=== PATIENT | male | born 1960 | race Hispanic/Latino ===

== ENCOUNTER 2017-09-19 12:45 | Emergency (ER) | payer MEDICARE ==
[2017-09-19 14:02] VITALS: BP 130/85
--- NOTE | 2017-09-19 19:12 | Emergency Department Report ---
ED Extremity Problem HPI - General Chief complaint: Extremity Problem,Nontraumatic Stated complaint: ABDOMINAL BLOATING/ FINGER/TOE PAIN Time Seen by Provider: 09/19/17 18:33 Source: patient Mode of arrival: Wheelchair Limitations: No Limitations - History of Present Illness Initial comments: Patient is a 57-year-old male who is presenting with 3-4 weeks of constant chronic bilateral hand and foot pain. Patient states there's been no swelling sometimes he does feel some redness of the skin flushed skin. Patient denies any trauma states the pain is 8 out of 10 in severity nothing makes it better and nothing makes it worse. Patient is mostly wheelchair-bound secondary to hip replacement and thinks some of the hand pain may be from pushing the wheels but it doesn't know why he is having the pain in his feet. Patient does not describe the pain as a burning sensation. - Related Data Previous Rx's Medication Instructions Recorded Last Taken Type traMADol [Ultram] 50 mg PO Q6HR PRN #10 tablet 09/19/17 Unknown Rx ED Review of Systems ROS: Stated complaint: ABDOMINAL BLOATING/ FINGER/TOE PAIN Other details as noted in HPI Comment: All other systems reviewed and negative ED Past Medical Hx - Surgical History Past Surgical History?: No Additional Surgical History: hip replacement. - Social History Smoking Status: Never Smoker Substance Use Type: None - Medications Home Medications: Home Medications Medication Instructions Recorded Confirmed Last Taken Type traMADol [Ultram] 50 mg PO Q6HR PRN #10 tablet 09/19/17 Unknown Rx ED Physical Exam - General Limitations: No Limitations General appearance: alert, in no apparent distress - Head Head exam: Present: atraumatic, normocephalic - Eye Eye exam: Present: normal appearance - ENT ENT exam: Present: mucous membranes moist - Neck Neck exam: Present: normal inspection - Respiratory Respiratory exam: Present: normal lung sounds bilaterally. Absent: respiratory distress - Cardiovascular Cardiovascular Exam: Present: regular rate, normal rhythm. Absent: systolic murmur, diastolic murmur, rubs, gallop - GI/Abdominal GI/Abdominal exam: Present: soft, normal bowel sounds - Rectal Rectal exam: Present: deferred - Extremities Exam Extremities exam: Present: normal inspection - Back Exam Back exam: Present: normal inspection - Neurological Exam Neurological exam: Present: alert, oriented X3 - Psychiatric Psychiatric exam: Present: normal affect, normal mood - Skin Skin exam: Present: warm, dry, intact, normal color. Absent: rash ED Course Vital Signs 09/19/17 13:58 Temperature 97.7 F Pulse Rate 91 H Respiratory 16 Rate Blood Pressure 130/85 O2 Sat by Pulse 100 Oximetry ED Medical Decision Making - Medical Decision Making Patient is a 57-year-old male presenting with chronic pain in his hands and feet. There is no physical evidence of any abnormality. Patient did not know if he was diabetic and had neuropathy blood sugar was checked and it was 102. Patient be discharged home he does have an orthopedic doctor that he can follow-up with an numbers to call his physician for appointment Critical care attestation.: If time is entered above; I have spent that time in minutes in the direct care of this critically ill patient, excluding procedure time. ED Disposition Clinical Impression: Chronic pain Qualifiers: Chronic pain type: chronic pain syndrome Qualified Code(s): G89.4 - Chronic pain syndrome Disposition: DC-01 TO HOME OR SELFCARE Is pt being admited?: No Does the pt Need Aspirin: No Condition: Stable Instructions: Chronic Pain (ED) Prescriptions: traMADol [Ultram] 50 mg PO Q6HR PRN #10 tablet PRN Reason: Pain Referrals: JULIO GREGORIO MD [Primary Care Provider] - 3-5 Days
== END 2017-09-19 18:40 | disposition home or self-care (01) ==
LOC: ED 12:45
DX: G89.4 Chronic pain syndrome (principal); M79.643 Pain in unspecified hand; M79.673 Pain in unspecified foot
CPT/HCPCS: 82962; 99282

== ENCOUNTER 2018-01-07 09:23 | Inpatient (IN) | payer MEDICARE ==
[2018-01-07 10:00] LABS: Hematocrit 33.3 % (35.5-45.6); Hemoglobin 11.3 gm/dl (11.8-15.2); Mean Corpuscular HGB Conc 34 % (32-34); Mean Corpuscular Hemoglobin 38 pg (28-32); Platelet Count 160 K/mm3 (140-440); Red Blood Count 2.97 M/mm3 (3.65-5.03); Red Cell Distribution Width 15.2 % (13.2-15.2)
[2018-01-07 10:02] LABS: Mean Corpuscular Volume 112 fl (84-94)
[2018-01-07 11:03] LABS: Alanine Aminotransferase 26 units/L (7-56); Albumin 2.1 g/dL (3.9-5); BUN/Creatinine Ratio 18; Blood Urea Nitrogen 9 mg/dL (9-20); Calcium 7.4 mg/dL (8.4-10.2); Hemolysis Index 4
--- NOTE | 2018-01-07 11:03 | Emergency Department Report ---
ED Shortness of Breath HPI - General Chief Complaint: Abdominal Pain Stated Complaint: TESTICULAR PAIN Time Seen by Provider: 01/07/18 10:47 Source: patient, EMS Mode of arrival: Stretcher Limitations: No Limitations - History of Present Illness Initial Comments: Patient is 57 years old male. Patient presented to the ER complaining all shortness of breath and generalized swelling specialty abdomen, scrotum and lower extremity. Patient stated that he had a history of liver cirrhosis before. Patient stated that he drink alcohol daily. He was never told that he had hepatitis. Patient denied any fever or abdominal pain. Patient denied hematemesis or melena. Patient also denied any recent confusion. MD Complaint: shortness of breath, cough -: week(s) Severity: moderate - Related Data Home Medications Medication Instructions Recorded Confirmed Last Taken No Known Home Medications [No 01/07/18 01/07/18 Unknown Reported Home Medications] Allergies Allergy/AdvReac Type Severity Reaction Status Date / Time No Known Allergies Allergy Unverified 01/07/18 09:33 ED Review of Systems ROS: Stated complaint: TESTICULAR PAIN Other details as noted in HPI Comment: All other systems reviewed and negative Respiratory: cough, orthopnea, shortness of breath, SOB with exertion, SOB at rest. denies: stridor, wheezing Cardiovascular: dyspnea on exertion, orthopnea, edema, paroxysmal nocturnal dyspnea. denies: chest pain, palpitations Gastrointestinal: denies: abdominal pain, nausea, vomiting, diarrhea, constipation, hematemesis, melena, hematochezia Genitourinary: denies: dysuria, frequency, hematuria, discharge, testicular pain , testicular mass Musculoskeletal: denies: back pain Skin: denies: rash, lesions Neurological: denies: headache, weakness, numbness, paresthesias, confusion, abnormal gait ED Past Medical Hx - Past Medical History Hx of Cancer: Yes (? colon) - Surgical History Additional Surgical History: hip replacement. - Social History Smoking Status: Former Smoker Substance Use Type: Alcohol - Medications Home Medications: Home Medications Medication Instructions Recorded Confirmed Last Taken Type No Known Home Medications [No 01/07/18 01/07/18 Unknown History Reported Home Medications] ED Physical Exam - General Limitations: No Limitations General appearance: alert - Head Head exam: Present: atraumatic, normocephalic, normal inspection - Eye Eye exam: Present: normal appearance - ENT ENT exam: Present: normal exam, normal orophraynx, mucous membranes moist - Neck Neck exam: Present: normal inspection, full ROM. Absent: tenderness, meningismus, lymphadenopathy, thyromegaly - Respiratory Respiratory exam: Present: normal lung sounds bilaterally, decreased breath sounds. Absent: respiratory distress, wheezes, rales, rhonchi, chest wall tenderness, accessory muscle use, prolonged expiratory - Cardiovascular Cardiovascular Exam: Present: regular rate, normal rhythm, normal heart sounds - GI/Abdominal GI/Abdominal exam: Present: soft, distended, normal bowel sounds. Absent: tenderness, guarding, rebound, rigid, organomegaly, mass, bruit, pulsatile mass , hernia - exam: Present: scrotal swelling. Absent: testicular tenderness, urethral discharge External exam: Present: swelling. Absent: lesions, lacerations, ecchymosis, bleeding - Extremities Exam Extremities exam: Present: full ROM, normal capillary refill, pedal edema. Absent: tenderness, joint swelling, calf tenderness - Back Exam Back exam: Present: normal inspection. Absent: full ROM, tenderness, CVA tenderness (R), CVA tenderness (L), muscle spasm, paraspinal tenderness, vertebral tenderness - Neurological Exam Neurological exam: Present: alert, oriented X3, CN II-XII intact, normal gait, reflexes normal - Skin Skin exam: Present: warm, intact, normal color. Absent: cyanosis, diaphoretic, erythema, urticaria ED Course Vital Signs 01/07/18 01/07/18 01/07/18 09:33 09:45 10:27 Temperature 98.4 F Pulse Rate 97 H Respiratory 20 22 Rate Blood Pressure 121/80 Blood Pressure 150/91 [Right] O2 Sat by Pulse 100 Oximetry 01/07/18 01/07/18 01/07/18 10:45 11:00 11:15 Temperature Pulse Rate 105 H 101 H 97 H Respiratory 24 25 H 17 Rate Blood Pressure 114/76 121/75 136/82 Blood Pressure [Right] O2 Sat by Pulse 100 97 Oximetry 01/07/18 01/07/18 01/07/18 11:30 11:45 12:00 Temperature Pulse Rate 97 H 100 H 101 H Respiratory 19 19 17 Rate Blood Pressure 115/85 138/91 124/82 Blood Pressure [Right] O2 Sat by Pulse Oximetry 06/04/18 06/04/18 06/04/18 12:15 12:30 12:45 Temperature Pulse Rate 102 H 98 H 100 H Respiratory 20 19 18 Rate Blood Pressure 138/91 123/88 135/93 Blood Pressure [Right] O2 Sat by Pulse Oximetry 01/07/18 01/07/18 01/07/18 13:00 13:16 13:30 Temperature Pulse Rate 101 H 103 H 100 H Respiratory 19 23 17 Rate Blood Pressure 138/105 138/105 138/87 Blood Pressure [Right] O2 Sat by Pulse Oximetry 01/07/18 01/07/18 13:37 13:45 Temperature 97.5 F L Pulse Rate 104 H Respiratory 19 Rate Blood Pressure 133/86 Blood Pressure [Right] O2 Sat by Pulse 96 Oximetry - Reevaluation(s) Reevaluation #1: 01/07/18 12:19 Patient reported that he's been taking aspirin 325 mg for his pain. He reported that he took at least 6 tablets yesterday and probably more than that 2 days ago but he stated that he did not took any aspirin today. I discussed with Dr. Small radiologist, paracentesis would be hold until tomorrow. I would order aspirin level on him. His INR is slightly up 1.7 hours give him vitamin K. ED Medical Decision Making - Lab Data Result diagrams: 01/07/18 09:41 01/07/18 09:41 - Radiology Data Radiology results: report reviewed Referring Physician: RODRIGUE HERNANDEZ Patient Name: DEEPAK LEWIS Date of : 1960 Sex: Male Report Date: 2018-01-07 Report Status: Finalized Findings [facility] [address] [place] [address] XRay Report Signed Patient: DEEPAK LEWIS MR#: [id number] : 1960 Acct:[id number] Age/Sex: 57 / M ADM Date: 01/07/18 Loc: ED Attending Dr: Ordering Physician: RODRIGUE HERNANDEZ Date of Service: 01/07/18 Procedure(s): XR chest 1V ap Accession Number(s): [id number] cc: RODRIGUE HERNANDEZ Fluoro Time In Minutes: AP CHEST: HISTORY: Shortness of breath No comparison. There is poor respiratory effort. Trace right pleural effusion is suspected, otherwise, the lungs are clear. No evidence for pneumonia or pneumothorax. Heart and mediastinal structures are within normal limits. The bony thorax is grossly intact. IMPRESSION: Poor inspiration. Trace right pleural effusion. Transcribed By: TTR Dictated By: SOPHIA SMALL JR, MD Electronically Authenticated By: SOPHIA SMALL JR, MD Signed Date/Time: 01/07/18 111 DD/ 111 TD/TT: 01/07/181112 - Medical Decision Making Discussed the patient was Dr. Guzman, he agreed to admit the patient to his service. Critical Care Time: Yes Critical care time in (mins) excluding proc time.: 30 Critical care attestation.: If time is entered above; I have spent that time in minutes in the direct care of this critically ill patient, excluding procedure time. ED Disposition Clinical Impression: Volume overload, Ascites, Liver cirrhosis, Hypokalemia Disposition: OP ADMIT IP TO THIS HOSP Is pt being admited?: Yes Condition: Stable
[2018-01-07 11:15] LABS: Band Neutrophils # (Manual) 0.1 K/mm3; Total Cells Counted 100
[2018-01-07 11:16] LABS: Macrocytosis 1+; Platelet Estimate Consistent w Auto
--- NOTE | 2018-01-07 11:23 | XRay Report ---
AP CHEST: HISTORY: Shortness of breath No comparison. There is poor respiratory effort. Trace right pleural effusion is suspected, otherwise, the lungs are clear. No evidence for pneumonia or pneumothorax. Heart and mediastinal structures are within normal limits. The bony thorax is grossly intact. IMPRESSION: Poor inspiration. Trace right pleural effusion.
[2018-01-07 11:34] LABS: INR 1.77 (0.87-1.13)
--- NOTE | 2018-01-07 11:57 | History and Physical Report ---
History of Present Illness Chief complaint: I cant breathe, my belly is real big History of present illness: 57 YO Male with Ascites, ETOH Abuse, Cirrhosis, Colon Cancer presents to ED for evaluation. Pt states that he has experienced worsening abdominal distention and shortness of breath over the past 1 month with worsening symptoms over the past 1 week. Pt denies fever, chills, CP, Palpitations, NVD, Trauma, recent ill contacts, productive cough, itching, Headache, Seizure, Syncope, hemoptysis, hematemesis, or BRBPR. Pt seen and evaluated in ED and found to have Acute Respiratory Failure secondary to massive ascites. Pt admitted to medical floor. Past History Past Medical History: other (Ascites, ETOH abuse, cirrhosis) Past Surgical History: total hip replacement Social history: single, alcohol abuse Family history: no significant family history (reviewed) Medications and Allergies Allergies Allergy/AdvReac Type Severity Reaction Status Date / Time No Known Allergies Allergy Unverified 01/07/18 09:33 Home Medications Medication Instructions Recorded Confirmed Last Taken Type No Known Home Medications [No 01/07/18 01/07/18 Unknown History Reported Home Medications] Active Meds: Active Medications Potassium Chloride (Kcl 10meq/100ml) 10 meq in 100 mls @ 100 mls/hr IV Q1H DURAN Stop: 01/07/18 13:59 Review of Systems Constitutional: weight gain, no weight loss, no fever, no chills, no sweats, no night sweats Ears, nose, mouth and throat: no ear pain, no ear discharge, no tinnitis, no decreased hearing, no nose pain, no nasal congestion, no nasal discharge Cardiovascular: no chest pain, no orthopnea, no palpitations, no rapid/ irregular heart beat Respiratory: shortness of breath, no cough, no cough with sputum, no excessive sputum, no hemoptysis Gastrointestinal: abdominal pain, nausea, no constipation, no change in bowel habits, no hematemesis, no BRBPR, no melena, no hematochezia, no loss of appetite, no early satiety Genitourinary Male: no dysuria, no hematuria, no flank pain, no discharge, no urinary frequency, no urinary hesitancy Rectal: no pain, no incontinence, no bleeding Musculoskeletal: no neck stiffness, no neck pain, no shooting arm pain, no arm numbness/tingling, no low back pain, no shooting leg pain Integumentary: no rash, no pruritis, no redness, no sores, no wounds, no jaundice Neurological: no head injury, no transient paralysis, no paralysis, no weakness , no parathesias, no numbness, no tingling, no seizures Psychiatric: no anxiety, no memory loss, no change in sleep habits, no sleep disturbances, no insomnia, no hypersomnia, no change in appetite Endocrine: no cold intolerance, no heat intolerance, no polyphagia, no polydipsia, no polyuria, no nocturia Hematologic/Lymphatic: no easy bruising, no easy bleeding, no lymphadenopathy, no lymphedema Allergic/Immunologic: no urticaria, no allergic rhinitis, no wheezing, no persistent infections, no anaphylaxis, no angioedema Exam - Constitutional Vitals: Temp Pulse Resp BP Pulse Ox 98.4 F 97 H 22 150/91 100 01/07/18 09:33 01/07/18 09:33 01/07/18 09:45 01/07/18 09:33 01/07/18 09:33 General appearance: Present: mild distress - EENT Eyes: Present: PERRL, scleral icterus ENT: hearing intact, clear oral mucosa - Neck Neck: Present: supple, normal ROM, masses or JVD - Respiratory Respiratory: bilateral: diminished - Cardiovascular Heart Sounds: Present: S1 & S2. Absent: rub, click - Extremities Extremities: pulses symmetrical, No edema Peripheral Pulses: within normal limits - Abdominal General gastrointestinal: Present: soft, distended, hypoactive bowel sounds. Absent: hepatomegaly, splenomegaly, mass Male genitourinary: Present: scrotal edema - Integumentary Integumentary: Present: clear, dry, jaundice - Musculoskeletal Musculoskeletal: generalized weakness - Psychiatric Psychiatric: appropriate mood/affect, intact judgment & insight - Neurologic Neurologic: CNII-XII intact, moves all extremities Results - Labs CBC & Chem 7: 01/07/18 09:41 01/07/18 09:41 Labs: Abnormal lab results 01/07/18 01/07/18 01/07/18 Range/Units 09:41 09:41 11:07 RBC 2.97 L (3.65-5.03) M/mm3 Hgb 11.3 L (11.8-15.2) gm/dl Hct 33.3 L (35.5-45.6) % MCV 112 H (84-94) fl MCH 38 H (28-32) pg Seg Neuts % (Manual) 81.0 H (40.0-70.0) % Lymphocytes % (Manual) 7.0 L (13.4-35.0) % Lymphocytes # (Manual) 0.4 L (1.2-5.4) K/mm3 PT 21.7 H (12.2-14.9) Sec. INR 1.77 H (0.87-1.13) APTT 40.0 H (24.2-36.6) Sec. Sodium 130 L (137-145) mmol/L Potassium 2.8 L* (3.6-5.0) mmol/L Chloride 89.5 L (98-107) mmol/L Creatinine 0.5 L (0.8-1.5) mg/dL Calcium 7.4 L (8.4-10.2) mg/dL Total Bilirubin 4.40 H (0.1-1.2) mg/dL AST 79 H (5-40) units/L Albumin 2.1 L (3.9-5) g/dL Assessment and Plan - Patient Problems (1) Acute respiratory failure Current Visit: Yes Status: Acute Qualifiers: Respiratory failure complication: hypoxia Qualified Code(s): J96.01 - Acute respiratory failure with hypoxia Plan to address problem: Supplemental oxygen, nebulizer therapy, NIPPV as clinically indicated, pulse oximetry, therapeutic paracentesis (2) ETOH abuse Current Visit: Yes Status: Acute Plan to address problem: CIWA protocol, thiamine, folic acid, multivitamin, (3) Ascites Current Visit: Yes Status: Acute Qualifiers: Ascites type: due to alcoholic cirrhosis Qualified Code(s): K70.31 - Alcoholic cirrhosis of liver with ascites Plan to address problem: Therapeutic paracentesis, abdominal ultrasound guidance. (4) Liver cirrhosis Current Visit: Yes Status: Acute Qualifiers: Ascites presence: with ascites Plan to address problem: Ammonia level, LFT, supportive care, (5) DVT prophylaxis Current Visit: Yes Status: Acute Plan to address problem: scd to ble while in bed
[2018-01-07] MEDS ORDERED: TYLENOL PO PRN (11:58)
[2018-01-07] MEDS ORDERED: PROVENTIL IH PRN (11:58)
[2018-01-07] MEDS ORDERED: ZOFRAN IV PRN (11:58)
[2018-01-07] MEDS ORDERED: SODIUM CHLORIDE FLUSH SYRINGE 10 ML IV PRN (11:58)
[2018-01-07] MEDS ORDERED: VITAMIN K (ADULT ONLY) SUB-Q ONE (12:20)
[2018-01-07] MEDS: KCL 10MEQ/100ML 10 MEQ/100 ML BAG IV SCH ×2 (13:35→17:00)
[2018-01-07] MEDS ORDERED: PROVENTIL IH ONE (14:18)
[2018-01-07 15:09] LABS: Bacteria,Urine 2+ /HPF (Negative); Bilirubin,Urine SM (Negative); Blood,Urine SM (Negative); Color,Urine Amber (Yellow); Mucus,Urine FEW /HPF
[2018-01-07 15:14] LABS: Ictotest,Urine Negative (Negative)
[2018-01-07] MEDS ORDERED: ATIVAN IV PRN ×2 (16:30)
[2018-01-07] MEDS: SODIUM CHLORIDE FLUSH SYRINGE 10 ML IV SCH (22:45)
[2018-01-08 08:50] LABS: INR 1.78 (0.87-1.13)
--- NOTE | 2018-01-08 11:25 | Ultrasound Report ---
ULTRASOUND PARACENTESIS History: Ascites. Description of procedure: Informed consent was obtained. Sterile technique was utilized. 1% lidocaine for skin anesthesia. Using ultrasound guidance, a 5 German centesis needle was advanced into the right lower quadrant peritoneal space. There was spontaneous return of slightly cloudy yellow fluid. 9.3 L of fluid was aspirated and 120 cc of fluid was saved for laboratory analysis. Impression: Successful paracentesis.
[2018-01-08 11:26] LABS: pH, Body Fluid 7.613
--- NOTE | 2018-01-08 11:38 | Procedure Note ---
Date of procedure: 01/08/18 Pre-op diagnosis: ascites Post-op diagnosis: same Procedure: US paracentesis Findings: large ascites Anesthesia: local Surgeon: SOPHIA RICK Estimated blood loss: none Pathology: list (120cc) Specimen disposition: to lab Condition: stable Disposition: floor
[2018-01-08] MEDS ORDERED: K-DUR PO ONE (12:00)
[2018-01-08] MEDS ORDERED: PNEUMOVAX 23 IM ONE (12:00)
--- NOTE | 2018-01-08 12:22 | Progress Note ---
Assessment and Plan Assessment and plan: 57 YO Male with Ascites, ETOH Abuse, Cirrhosis, presents to ED for evaluation. Pt states that he has experienced worsening abdominal distention and shortness of breath over the past 1 month with worsening symptoms over the past 1 week. Pt denies fever, chills, CP, Palpitations, NVD, Trauma, recent ill contacts, productive cough, itching, Headache, Seizure, Syncope, hemoptysis, hematemesis, or BRBPR. Pt seen and evaluated in ED and found to have Acute Respiratory Failure secondary to massive ascites. Per patient no diagnosis of CA but has never had a colonoscopy On further discussion the patient reports that he's been to multiple hospitals but does not recall why he only remembers a recent hip surgery with Dr. Alcazar at [facility]. He reports that his last alcohol drink was 5 days ago. He has very poor insight and actually had to count his fingers to decannulate his last alcohol drink was. He does not recall any medications that he is on. When told that he has a FAILING LIVER He exclaims,"Oh that is what it is" (1) Acute respiratory failure * Improved with paracentesis. Nebs PRN, NIPPV stand by (2) ETOH abuse Current Visit: Yes Status: Acute Plan to address problem: CIWA protocol, thiamine, folic acid, multivitamin, (3) Ascites Current Visit: Yes Status: Acute Qualifiers: Ascites type: due to alcoholic cirrhosis Qualified Code(s): K70.31 - Alcoholic cirrhosis of liver with ascites Plan to address problem: S/P Diagnostic and Therapeutic Paracentesis (4) Liver cirrhosis with decompensation Current Visit: Yes Status: Acute Qualifiers: Ascites presence: with ascites Plan to address problem: Ammonia level, LFT, supportive care, Lasix and aldactone GI consult Obtain records from recently visited hospitals (5) Scrotal Edema * scrotal us r/o epididymtis, Less likely. * scrotal support. (6)Anemia OF chronic Disease * Monitor. (7)Hypokalemia Replace, add aldactone. (8)DVT prophylaxis Current Visit: Yes Status: Acute Plan to address problem: scd to ble while in bed Will need extensively counselling on discharge. Outpatient screening colonoscopy if non noted on his records and if not done here History Interval history: Patient seen and examined, very poor historian. No fever, nausea, vomiting. No abdominal pain but states some dyscomfort with scrotal edema. Still with orthopnea Hospitalist Physical - Physical exam Narrative exam: VITAL SIGNS: Reviewed. GENERAL: The patient appeared well nourished and normally developed. Vital signs as documented. HEAD: No signs of head trauma. Temporal wasting with cachexia EYES: Pupils are equal. Extraocular motions intact. EARS: Hearing grossly intact. MOUTH: Oropharynx is normal. NECK: No adenopathy, no JVD. CHEST: Chest with clear breath sounds bilaterally. No wheezes, rales, or rhonchi. CARDIAC: Regular rate and rhythm. S1 and S2, without murmurs, gallops, or rubs. VASCULAR: 3+ bilateral pitting edema lower extremities. Peripheral pulses normal and equal in all extremities. ABDOMEN: Soft, without detectable tenderness. No sign of distention. No rebound or guarding, and no masses palpated. Bowel Sounds normal. MUSCULOSKELETAL: Good range of motion of all major joints. Extremities without clubbing, cyanosis. 3+ bilateral lower extremity pitting edema NEUROLOGIC EXAM: Alert and oriented x 3. Poor clinical insight No focal sensory or strength deficits. Speech normal. Follows commands. PSYCHIATRIC: Mood normal. SKIN: Enlarged scrotum with erythema extended to bilateral groin - Constitutional Vitals: Temp Pulse Resp BP Pulse Ox 98.3 F 96 H 24 129/82 96 01/08/18 08:20 01/08/18 08:20 01/08/18 08:20 01/08/18 08:20 01/08/18 08:20 General appearance: Present: mild distress Results - Labs CBC & Chem 7: 01/07/18 09:41 01/08/18 10:55 Labs: Laboratory Last Values WBC 6.3 K/mm3 (4.5-11.0) 01/07/18 09:41 RBC 2.97 M/mm3 (3.65-5.03) L 01/07/18 09:41 Hgb 11.3 gm/dl (11.8-15.2) L 01/07/18 09:41 Hct 33.3 % (35.5-45.6) L 01/07/18 09:41 MCV 112 fl (84-94) H 01/07/18 09:41 MCH 38 pg (28-32) H 01/07/18 09:41 MCHC 34 % (32-34) 01/07/18 09:41 RDW 15.2 % (13.2-15.2) 01/07/18 09:41 Plt Count 160 K/mm3 (140-440) 01/07/18 09:41 [place] % (Auto) Disc Pad Plate Filler 01/07/18 09:41 Add Manual Diff Complete 01/07/18 09:41 Total Counted 100 01/07/18 09:41 Seg Neuts % (Manual) 81.0 % (40.0-70.0) H 01/07/18 09:41 Band Neutrophils % 1.0 % 01/07/18 09:41 Lymphocytes % (Manual) 7.0 % (13.4-35.0) L 01/07/18 09:41 Reactive Lymphs % (Man) 1.0 % 01/07/18 09:41 Monocytes % (Manual) 5.0 % (0.0-7.3) 01/07/18 09:41 Eosinophils % (Manual) 4.0 % (0.0-4.3) 01/07/18 09:41 Basophils % (Manual) 1.0 % (0.0-1.8) 01/07/18 09:41 Metamyelocytes % 0 % 01/07/18 09:41 Myelocytes % 0 % 01/07/18 09:41 Promyelocytes % 0 % 01/07/18 09:41 Blast Cells % 0 % 01/07/18 09:41 Nucleated RBC % Not Reportable 01/07/18 09:41 Seg Neutrophils # Man 5.1 K/mm3 (1.8-7.7) 01/07/18 09:41 Band Neutrophils # 0.1 K/mm3 01/07/18 09:41 Lymphocytes # (Manual) 0.4 K/mm3 (1.2-5.4) L 01/07/18 09:41 Abs React Lymphs (Man) 0.1 K/mm3 01/07/18 09:41 Monocytes # (Manual) 0.3 K/mm3 (0.0-0.8) 01/07/18 09:41 Eosinophils # (Manual) 0.3 K/mm3 (0.0-0.4) 01/07/18 09:41 Basophils # (Manual) 0.1 K/mm3 (0.0-0.1) 01/07/18 09:41 Metamyelocytes # 0.0 K/mm3 01/07/18 09:41 Myelocytes # 0.0 K/mm3 01/07/18 09:41 Promyelocytes # 0.0 K/mm3 01/07/18 09:41 Blast Cells # 0.0 K/mm3 01/07/18 09:41 WBC Morphology Not Reportable 01/07/18 09:41 Hypersegmented Neuts Not Reportable 01/07/18 09:41 Hyposegmented Neuts Not Reportable 01/07/18 09:41 Hypogranular Neuts Not Reportable 01/07/18 09:41 Smudge Cells Not Reportable 01/07/18 09:41 Toxic Granulation Not Reportable 01/07/18 09:41 Toxic Vacuolation Not Reportable 01/07/18 09:41 Dohle Bodies Not Reportable 01/07/18 09:41 Pelger-Huet Anomaly Not Reportable 01/07/18 09:41 Ellie Rods Not Reportable 01/07/18 09:41 Platelet Estimate Consistent w auto 01/07/18 09:41 Clumped Platelets Not Reportable 01/07/18 09:41 Plt Clumps, EDTA Not Reportable 01/07/18 09:41 Large Platelets Not Reportable 01/07/18 09:41 Giant Platelets Not Reportable 01/07/18 09:41 Platelet Satelliting Not Reportable 01/07/18 09:41 Plt Morphology Comment Not Reportable 01/07/18 09:41 RBC Morphology Not Reportable 01/07/18 09:41 Dimorphic RBCs Not Reportable 01/07/18 09:41 Polychromasia Not Reportable 01/07/18 09:41 Hypochromasia Not Reportable 01/07/18 09:41 Poikilocytosis Not Reportable 01/07/18 09:41 Anisocytosis Not Reportable 01/07/18 09:41 Microcytosis Not Reportable 01/07/18 09:41 Macrocytosis 1+ 01/07/18 09:41 Spherocytes Not Reportable 01/07/18 09:41 Pappenheimer Bodies Not Reportable 01/07/18 09:41 Sickle Cells Not Reportable 01/07/18 09:41 Target Cells Not Reportable 01/07/18 09:41 Tear Drop Cells Not Reportable 01/07/18 09:41 Ovalocytes Not Reportable 01/07/18 09:41 Helmet Cells Not Reportable 01/07/18 09:41 [place] Bodies Not Reportable 01/07/18 09:41 [place] Rings Not Reportable 01/07/18 09:41 Miles Cells Not Reportable 01/07/18 09:41 Bite Cells Not Reportable 01/07/18 09:41 Crenated Cell Not Reportable 01/07/18 09:41 Elliptocytes Not Reportable 01/07/18 09:41 Acanthocytes (Spur) Not Reportable 01/07/18 09:41 Rouleaux Not Reportable 01/07/18 09:41 Hemoglobin C Crystals Not Reportable 01/07/18 09:41 Schistocytes Not Reportable 01/07/18 09:41 Malaria parasites Not Reportable 01/07/18 09:41 Buster Bodies Not Reportable 01/07/18 09:41 Hem Pathologist Commnt No 01/07/18 09:41 PT 21.8 Sec. (12.2-14.9) H 01/08/18 08:16 INR 1.78 (0.87-1.13) H 01/08/18 08:16 APTT 40.0 Sec. (24.2-36.6) H 01/07/18 11:07 Sodium 130 mmol/L (137-145) L 01/07/18 09:41 Potassium 2.7 mmol/L (3.6-5.0) L* 01/08/18 10:55 Chloride 89.5 mmol/L (98-107) L 01/07/18 09:41 Carbon Dioxide 26 mmol/L (22-30) 01/07/18 09:41 Anion Gap 17 mmol/L 01/07/18 09:41 BUN 9 mg/dL (9-20) 01/07/18 09:41 Creatinine 0.5 mg/dL (0.8-1.5) L 01/07/18 09:41 Estimated GFR > 60 ml/min 01/07/18 09:41 BUN/Creatinine Ratio 18 % 01/07/18 09:41 Glucose 89 mg/dL (75-100) 01/07/18 09:41 Calcium 7.4 mg/dL (8.4-10.2) L 01/07/18 09:41 Total Bilirubin 4.40 mg/dL (0.1-1.2) H 01/07/18 09:41 AST 79 units/L (5-40) H 01/07/18 09:41 ALT 26 units/L (7-56) 01/07/18 09:41 Alkaline Phosphatase 101 units/L (35-129) 01/07/18 09:41 Ammonia 31.0 umol/L (25-60) 01/07/18 12:47 NT-Pro-B Natriuret Pep 50.94 pg/mL (0-900) 01/07/18 09:41 Total Protein 7.9 g/dL (6.3-8.2) 01/07/18 09:41 Albumin 2.1 g/dL (3.9-5) L 01/07/18 09:41 Albumin/Globulin Ratio 0.4 % 01/07/18 09:41 Urine Color Sheri (Yellow) 01/07/18 14:38 Urine Turbidity Clear (Clear) 01/07/18 14:38 Urine pH 5.0 (5.0-7.0) 01/07/18 14:38 Ur Specific [place] 1.019 (1.003-1.030) 01/07/18 14:38 Urine Protein 30 mg/dl mg/dL (Negative) 01/07/18 14:38 Urine Glucose (UA) Neg mg/dL (Negative) 01/07/18 14:38 Urine Ketones Neg mg/dL (Negative) 01/07/18 14:38 Urine Blood Sm (Negative) 01/07/18 14:38 Urine Nitrite Neg (Negative) 01/07/18 14:38 Urine Bilirubin Sm (Negative) 01/07/18 14:38 Urine Ictotest Negative (Negative) 01/07/18 14:38 Urine Urobilinogen 4.0 mg/dL (<2.0) 01/07/18 14:38 Ur Leukocyte Esterase Lg (Negative) 01/07/18 14:38 Urine WBC (Auto) 122.0 /HPF (0.0-6.0) H 01/07/18 14:38 Urine RBC (Auto) 5.0 /HPF (0.0-6.0) 01/07/18 14:38 U Epithel Cells (Auto) 6.0 /HPF (0-13.0) 01/07/18 14:38 Urine Bacteria (Auto) 2+ /HPF (Negative) 01/07/18 14:38 Urine Mucus Few /HPF 01/07/18 14:38 Fluid Type Paracentesis 01/08/18 Unknown Fluid Color Yellow 01/08/18 Unknown Fluid Appearance Clear 01/08/18 Unknown Fluid pH 7.613 01/08/18 Unknown Fluid WBC 55 /mm3 01/08/18 Unknown Fluid RBC 85 /mm3 01/08/18 Unknown Salicylates 8.2 mg/dL (2.8-20.0) 01/07/18 12:47 - Imaging and Cardiology Chest x-ray: image reviewed (trace pleural effusion)
[2018-01-08] MEDS: FOLVITE PO SCH (12:34)
[2018-01-08] MEDS: THERAGRAN Tab PO SCH (12:35)
[2018-01-08] MEDS: SODIUM CHLORIDE FLUSH SYRINGE 10 ML IV SCH ×2 (12:35→22:46)
[2018-01-08] MEDS: VITAMIN B-1 PO SCH (12:35)
[2018-01-08 12:39] LABS: Total Cells Counted 100 /mm3
[2018-01-08] MEDS ORDERED: ROCEPHIN/NS 2 GM/100 ML 2 GM/100 ML BAG IV SCH (13:00)
[2018-01-08] MEDS ORDERED: ALDACTONE PO SCH (13:00)
--- NOTE | 2018-01-08 14:09 | Event Note ---
Date: 01/08/18 Attempted to see PT x 2, he is off the floor. Will follow up tomorrow. Please call if urgent needs arise. Tess Mckinney, ACNP-BC
--- NOTE | 2018-01-08 14:23 | Ultrasound Report ---
ULTRASOUND TESTICULAR DOPPLER COMPLETE History: Epididymitis. Technique: Trans-scrotal ultrasound with spectral doppler interrogation. Findings: There is severe scrotal skin edema. No evidence for abscess or soft tissue gas on ultrasound. Both testes and epididymides are normal size, contour and echotexture. No hydrocele or varicocele. No mass or pathologic calcifications. Doppler interrogation depicts symmetric arterial flow to both testes. IMPRESSION: Severe scrotal skin edema. This could represent nonspecific edema or cellulitis. No abscess is identified. Otherwise, unremarkable scrotal ultrasound. No convincing findings of epididymitis.
--- NOTE | 2018-01-08 15:16 | Query- Nutrition ---
Dear Amos Gonzalez____Date:___01/08/2018__ [employer]/CDS: clinton Phone#:[phone] Exercise your independent professional judgment when responding to query. Questions asked do not imply a particular answer is desired or expected. We greatly appreciate your clarification on this issue. Clinical Documentation States: 57 YO Male with Ascites, ETOH Abuse, Cirrhosis, Colon Cancer presents to ED for evaluation. Taken from H&P note (Dilshad Fernandes) on 01/07/18. Assessment and Plan:Taken from progress note (Carlos Smith) on 01/08/18. Acute respiratory failure Ascites Cirrhosis Clinical Findings Show: BMI:30.2kg/m Sr.Albumin: 2.1L Please select the most appropriate option 3 [] Mild Malnutrition [] Mild - Moderate Malnutrition [X] Moderate - Severe Malnutrition [] Severe Malnutrition Serum Albumin 2.8 to 3.4 g/dl or Pre-albumin 5 to 17 mg/dl1,2 Inadequate nutritional intake1,2,3,4 NPO > 5 days Weight loss: 5% in 1 month or 7.5% in 3 months or 10% in 6 months1, 3,4 BMI 16 to 18.4 or Weight <90% of ideal body weight1,2,3,4 Serum Albumin < 2.8 g/ dl1,2 Lymphocytes < 1500/ L2 Inadequate nutritional intake3, high stress e.g. major trauma, sepsis,pancreatitis, powell etc. Decubitus ulcers1,2, , skin breakdown2, easy hair pluckability2 Weight <80% standard for height2 Triceps skin fold <3 mm2 Mid-arm muscle circumference <15 cm2 Creatinine-height index <60% standard2 [X ] Cachexia [ ] Emaciated w/Malnutrition [ ] Other: [ ] Unable to determine [ ] Comment/Explanation: Present on Admission: [Y ] Yes (Y) [ ] Clinically undeterminable (W) [ ] No (N) Please also document response in your Progress Notes and/or Discharge Summary and indicate if the condition was present on admission. MTDD
[2018-01-08] MEDS ORDERED: NACL 0.9% 500 ML 500 ML IV SCH (17:00)
[2018-01-08] MEDS: cefTRIAXone 2 GM in NACL 0.9% 20 ML IV SCH (18:00)
[2018-01-08] MEDS: KCL 10MEQ/100ML 10 MEQ/100 ML BAG IV SCH ×3 (18:00→23:51)
[2018-01-08] MEDS: LASIX IV SCH (18:37)
[2018-01-08] MEDS: ATIVAN IV PRN (22:46)
[2018-01-09] MEDS: KCL 10MEQ/100ML 10 MEQ/100 ML BAG IV SCH ×5 (01:43→18:50)
[2018-01-09] MEDS: LASIX IV SCH ×2 (06:18→18:13)
[2018-01-09 07:12] LABS: Hematocrit 28.2 % (35.5-45.6); Hemoglobin 9.9 gm/dl (11.8-15.2); Mean Corpuscular HGB Conc 35 % (32-34); Mean Corpuscular Hemoglobin 39 pg (28-32); Mean Corpuscular Volume 111 fl (84-94); Platelet Count 162 K/mm3 (140-440); Red Blood Count 2.55 M/mm3 (3.65-5.03); Red Cell Distribution Width 14.8 % (13.2-15.2)
[2018-01-09 07:40] LABS: Alanine Aminotransferase 18 units/L (7-56); Albumin 1.7 g/dL (3.9-5); BUN/Creatinine Ratio 20; Blood Urea Nitrogen 8 mg/dL (9-20); Calcium 6.9 mg/dL (8.4-10.2); Hemolysis Index 0
--- NOTE | 2018-01-09 09:06 | Gastroenterology Consultation ---
History of Present Illness - Reason for Consult Consult date: 01/09/18 Cirrhosis with ascites Requesting physician: MENG GUTIERREZ - History of Present Illness The patient is a 57-year-old man with a long history of heavy alcohol abuse room consultation was requested for cirrhosis and massive ascites. He presented with progressive tense ascites and pedal edema which has been evolving over the last several months. The patient was told that he had cirrhosis about 6 months ago. He drinks at least a pint of gin on a daily basis which she has for 5-10 years by self-report. He reports that his last drink was approximately one week prior to this admission. No family history of liver disease. He has been in alcohol rehabilitation several times. The patient does not have regular medical care. He does not know whether he has been tested for hepatitis but has no known history of hepatitis B or C. Patient denies illicit drug use. Past History Past Medical History: other (Ascites, ETOH abuse, cirrhosis) Past Surgical History: total hip replacement Social history: single, alcohol abuse Family history: no significant family history (reviewed) Medications and Allergies Allergies Allergy/AdvReac Type Severity Reaction Status Date / Time No Known Allergies Allergy Unverified 01/07/18 09:33 Home Medications Medication Instructions Recorded Confirmed Last Taken Type No Known Home Medications [No 01/07/18 01/07/18 Unknown History Reported Home Medications] Active Meds: Active Medications Acetaminophen (Tylenol) 650 mg PO Q4H PRN PRN Reason: Pain MILD(1-3)/Fever >100.5/VALLEJO Albuterol (Proventil) 2.5 mg IH Q4HRT PRN PRN Reason: Shortness Of Breath Last Admin: 01/07/18 14:36 Dose: 2.5 mg Folic Acid (Folvite) 1 mg PO QDAY DURAN Last Admin: 01/08/18 12:34 Dose: 1 mg Furosemide (Lasix) 40 mg IV 0600,1800 DURAN Last Admin: 01/09/18 06:18 Dose: 40 mg Ceftriaxone Sodium 2 gm/ (Sodium Chloride) 20 mls @ 2 mls/min IV Q24HR DURAN Last Admin: 01/08/18 18:00 Dose: 2 mls/min Sodium Chloride (Nacl 0.9% 500 Ml) 500 mls @ 50 mls/hr IV DIRECT DURAN Lorazepam (Ativan) 2 mg IV Q1HR PRN PRN Reason: CIWA-Ar 8-15 Last Admin: 01/08/18 22:46 Dose: 2 mg Lorazepam (Ativan) 4 mg IV Q15MIN PRN PRN Reason: CIWA-Ar >25 Lorazepam (Ativan) 4 mg IV Q1HR PRN PRN Reason: CIWA-Ar 16-25 Multivitamins (Theragran Tab) 1 each PO QDAY [facility] Last Admin: 01/08/18 12:35 Dose: 1 each Ondansetron HCl (Zofran) 4 mg IV Q8H PRN PRN Reason: Nausea And Vomiting Sodium Chloride (Sodium Chloride Flush Syringe 10 Ml) 10 ml IV BID [facility] Last Admin: 01/08/18 22:46 Dose: 10 ml Sodium Chloride (Sodium Chloride Flush Syringe 10 Ml) 10 ml IV PRN PRN PRN Reason: LINE FLUSH Spironolactone (Aldactone) 50 mg PO QDAY [facility] Last Admin: 01/08/18 18:37 Dose: 50 mg Thiamine HCl (Vitamin B-1) 100 mg PO QDAY [facility] Last Admin: 01/08/18 12:35 Dose: 100 mg Review of Systems - Review of Systems Constitutional: weight gain, no fever, no chills Eyes: no change in vision Ears, Nose, Throat: no decreased hearing, no difficulty swallowing, no painful swallowing Breasts: deferred Cardiovascular: shortness of breath, no chest pain Respiratory: shortness of breath, wheezing, no cough Gastrointestinal: abdominal pain, melena, no nausea, no vomiting, no diarrhea, no constipation, no change in bowel habits, no hematochezia Rectal: no pain, no incontinence Male Genitourinary: other (Reports scrotal swelling for several months.) Musculoskeletal: no gait dysfunction Integumentary: no rash, no pruritis, no jaundice Neurological: no head injury, no paralysis Psychiatric: no anxiety Endocrine: no cold intolerance Hematologic/Lymphatic: no easy bruising, no easy bleeding Allergic/Immunologic: no wheezing Exam - Constitutional Vital Signs: Temp Pulse Resp BP Pulse Ox 98.1 F 102 H 24 139/91 94 01/09/18 08:07 01/09/18 08:07 01/09/18 08:07 01/09/18 08:07 01/09/18 08:07 General appearance: no acute distress, temporal muscle wasting, disheveled - EENT Eyes: PERRL ENT: hearing intact, clear oral mucosa - Neck Neck: supple, normal ROM, no masses or JVD - Respiratory Respiratory effort: normal Respiratory: bilateral: CTA - Breasts Breasts: deferred - Cardiovascular Rhythm: regular Heart Sounds: Present: S1 & S2. Absent: gallop, rub Extremities: pulses intact, Full ROM Extremity abnormal: edema (3 plus pitting edema bilaterally) - Gastrointestinal General gastrointestinal: Present: soft, non-tender, distended (3-4 plus ascites ), normal bowel sounds. Absent: hepatomegaly, splenomegaly, mass Rectal Exam: deferred - Genitourinary Male Genitourinary: other (scrotal and penile edema) - Integumentary Integumentary: Present: clear, warm, dry - Musculoskeletal Musculoskeletal: normal - Neurologic Neurological: alert and oriented x3, strength equal bilaterally, generalized weakness - Psychiatric Psychiatric: appropriate mood/affect, intact judgment & insight, memory intact - Labs CBC & Chem 7: 01/09/18 06:12 01/09/18 06:12 Lab Results: Laboratory Results - last 24 hr 01/08/18 01/08/18 01/08/18 10:55 13:34 Unknown WBC RBC Hgb Hct MCV MCH MCHC RDW Plt Count Sodium Potassium 2.7 L* Chloride Carbon Dioxide Anion Gap BUN Creatinine Estimated GFR BUN/Creatinine Ratio Glucose Calcium Total Bilirubin AST ALT Alkaline Phosphatase Ammonia 89.0 H Total Protein Albumin Albumin/Globulin Ratio Fluid Type Paracentesis Fluid Color Yellow Fluid Appearance Clear Fluid pH 7.613 Fluid WBC 55 Fluid RBC 85 Fluid Seg Neutrophils 16.0 Fluid Lymphocytes 47.0 Fluid Reactive Lymphs 0 Fluid Monocytes 37.0 Fluid Eosinophils 0 Fluid Basophils 0 01/09/18 01/09/18 06:12 06:12 WBC 5.5 RBC 2.55 L Hgb 9.9 L Hct 28.2 L MCV 111 H MCH 39 H MCHC 35 H RDW 14.8 Plt Count 162 Sodium 135 L Potassium 2.8 L* Chloride 95.7 L Carbon Dioxide 29 Anion Gap 13 BUN 8 L Creatinine 0.4 L Estimated GFR > 60 BUN/Creatinine Ratio 20 Glucose 92 Calcium 6.9 L Total Bilirubin 3.20 H AST 54 H ALT 18 Alkaline Phosphatase 79 Ammonia Total Protein 6.0 L D Albumin 1.7 L Albumin/Globulin Ratio 0.4 Fluid Type Fluid Color Fluid Appearance Fluid pH Fluid WBC Fluid RBC Fluid Seg Neutrophils Fluid Lymphocytes Fluid Reactive Lymphs Fluid Monocytes Fluid Eosinophils Fluid Basophils Assessment and Plan - Patient Problems (1) Ascites Current Visit: Yes Status: Acute Qualifiers: Ascites type: due to alcoholic cirrhosis Qualified Code(s): K70.31 - Alcoholic cirrhosis of liver with ascites Plan to address problem: Massive ascites secondary to cirrhosis with decompensated liver disease. S/p 9.3 liter tap but still has massive ascites. Renal function stable overnight post tap. Needs repeat large volume tap. Will need higher Aldactone dose. Needs exclusion of neoplasia causing decompensation. Rule out Budd Chiari superimposed. Rule out hemochromatosis, viral hepatitis superimposed on Laennec' s cirrhosis. (2) ETOH abuse Current Visit: Yes Status: Acute Plan to address problem: On CIWA protocol (3) Liver cirrhosis Current Visit: Yes Status: Acute Qualifiers: Ascites presence: with ascites (4) Volume overload Current Visit: Yes Status: Acute
[2018-01-09 11:29] LABS: Iron 65 ug/dL (49-181); Total Iron Binding Capacity 97 mcg/dL (250-450)
--- NOTE | 2018-01-09 11:43 | Event Note ---
Date: 01/09/18 I spoke with the radiologist who prefers that the patient have FFP and vit K before the next paracentesis. He will likely have repeat paracentesis in the AM.
[2018-01-09] MEDS: ALDACTONE PO SCH ×2 (12:58→23:15)
[2018-01-09] MEDS: VITAMIN K (ADULT ONLY) SUB-Q ONE ×2 (12:59→14:42)
[2018-01-09] MEDS: FOLVITE PO SCH (12:59)
[2018-01-09] MEDS: cefTRIAXone 2 GM in NACL 0.9% 20 ML IV SCH (12:59)
[2018-01-09] MEDS: THERAGRAN Tab PO SCH (12:59)
[2018-01-09] MEDS: SODIUM CHLORIDE FLUSH SYRINGE 10 ML IV SCH ×2 (13:00→23:21)
[2018-01-09] MEDS: VITAMIN B-1 PO SCH (14:19)
--- NOTE | 2018-01-09 14:19 | Vascular Lab Report ---
Hepatic venous duplex Reason for exam: Budd-Chiari syndrome Comments: The study is technically limited due to patient movement and ascites. The hepatic veins appear to be patent. The inferior vena cava appears to be patent without evidence of thrombus. The portal vein was identified and appears to be patent. On this study, it was difficult to confirm whether flow is directed toward or away from the liver. Impression: No evidence of hepatic vein thrombosis. Portal vein flow cannot be determined to be either in the direction or away from the liver.
[2018-01-09] MEDS: ATIVAN IV PRN (14:22)
--- NOTE | 2018-01-09 14:50 | Ultrasound Report ---
ULTRASOUND ABDOMEN LIMITED INDICATION: Status post paracentesis yesterday. Evaluate for ascites. COMPARISON: Yesterday. FINDINGS: Sonographic imaging of all 4 abdominal quadrants demonstrates again demonstrates moderate ascites with diffuse low-level intrinsic echoes, possibly debris versus hemorrhagic in this patient with INR approximately 1.8. CONCLUSION: Complex ascites identified, as described. I discussed the above results with Dr. Chaudhry. Thank you for the opportunity to participate in this patient's care.
[2018-01-09] MEDS ORDERED: VITAMIN K (ADULT ONLY) SUB-Q ONE (15:00)
[2018-01-09] MEDS ORDERED: NACL 0.9% 500 ML 500 ML IV ONE (15:00)
[2018-01-09] MEDS ORDERED: NACL 0.9% 500 ML 500 ML IV SCH (18:55)
[2018-01-09] MEDS ORDERED: MAGNESIUM SULFATE IV ONE (19:12)
--- NOTE | 2018-01-09 19:21 | Progress Note ---
Assessment and Plan Assessment and plan: 57 YO Male with Ascites, ETOH Abuse, Cirrhosis, presents to ED for evaluation. Pt states that he has experienced worsening abdominal distention and shortness of breath over the past 1 month with worsening symptoms over the past 1 week. Pt denies fever, chills, CP, Palpitations, NVD, Trauma, recent ill contacts, productive cough, itching, Headache, Seizure, Syncope, hemoptysis, hematemesis, or BRBPR. Pt seen and evaluated in ED and found to have Acute Respiratory Failure secondary to massive ascites. Per patient no diagnosis of CA but has never had a colonoscopy On further discussion the patient reports that he's been to multiple hospitals but does not recall why he only remembers a recent hip surgery with Dr. Alcazar at [facility]. He reports that his last alcohol drink was 5 days ago. He has very poor insight and actually had to count his fingers to decannulate his last alcohol drink was. He does not recall any medications that he is on. When told that he has a FAILING LIVER He exclaims,"Oh that is what it is" (1)Acute Hepatic encephalopathy * Confabulating, Ammonia level checked and elevated, * Start on lactulose * Discussed with GI, repeat paracentesis pending, * COrrect coagulpathy (2)Acute respiratory failure * Improved with paracentesis. Nebs PRN, NIPPV stand by (3) ETOH abuse Current Visit: Yes Status: Acute Plan to address problem: CIWA protocol, thiamine, folic acid, multivitamin, (4) Ascites Current Visit: Yes Status: Acute Qualifiers: Ascites type: due to alcoholic cirrhosis Qualified Code(s): K70.31 - Alcoholic cirrhosis of liver with ascites Plan to address problem: S/P Diagnostic and Therapeutic Paracentesis (5) Liver cirrhosis with decompensation Current Visit: Yes Status: Acute Qualifiers: Ascites presence: with ascites Plan to address problem: Ammonia level, LFT, supportive care, Lasix and aldactone GI consult Obtain records from recently visited hospitals (6) Scrotal Edema * scrotal us r/o epididymtis, Less likely. * scrotal support. (7)Anemia OF chronic Disease * Monitor. (8)Hypokalemia Replace, add aldactone AND adjusted * Hypomagemesema noted and replacement given. (9)DVT prophylaxis Current Visit: Yes Status: Acute Plan to address problem: scd to ble while in bed Will need extensively counselling on discharge. Outpatient screening colonoscopy if non noted on his records and if not done here History Interval history: Patient seen and examined, very poor historian. some confusion noted today. still with some abdominal discomforts but improved following paracentesis. Denies any fever, nausea, vomiting. orthopnea resolved Hospitalist Physical - Physical exam Narrative exam: VITAL SIGNS: Reviewed. GENERAL: The patient appeared well nourished and normally developed. Vital signs as documented. HEAD: No signs of head trauma. Temporal wasting with cachexia EYES: Pupils are equal. Extraocular motions intact. EARS: Hearing grossly intact. MOUTH: Oropharynx is normal. NECK: No adenopathy, no JVD. CHEST: Chest with clear breath sounds bilaterally. No wheezes, rales, or rhonchi. CARDIAC: Regular rate and rhythm. S1 and S2, without murmurs, gallops, or rubs. VASCULAR: 3+ bilateral pitting edema lower extremities. Peripheral pulses normal and equal in all extremities. ABDOMEN: Soft, without detectable tenderness. No sign of distention. No rebound or guarding, and no masses palpated. Bowel Sounds normal. MUSCULOSKELETAL: Good range of motion of all major joints. Extremities without clubbing, cyanosis. 3+ bilateral lower extremity pitting edema NEUROLOGIC EXAM: lethargic, arousable, oriented x1 Poor clinical insight No focal sensory or strength deficits. Speech normal. Follows commands. PSYCHIATRIC: Mood normal. SKIN: Enlarged scrotum with erythema extended to bilateral groin - Constitutional Vitals: Temp Pulse Resp BP Pulse Ox 99.1 F 99 H 20 113/79 89 01/09/18 15:37 01/09/18 15:37 01/09/18 15:37 01/09/18 15:37 01/09/18 15:37 General appearance: Present: mild distress Results - Labs CBC & Chem 7: 01/09/18 06:12 01/09/18 06:12 Labs: Laboratory Last Values WBC 5.5 K/mm3 (4.5-11.0) 01/09/18 06:12 RBC 2.55 M/mm3 (3.65-5.03) L 01/09/18 06:12 Hgb 9.9 gm/dl (11.8-15.2) L 01/09/18 06:12 Hct 28.2 % (35.5-45.6) L 01/09/18 06:12 MCV 111 fl (84-94) H 01/09/18 06:12 MCH 39 pg (28-32) H 01/09/18 06:12 MCHC 35 % (32-34) H 01/09/18 06:12 RDW 14.8 % (13.2-15.2) 01/09/18 06:12 Plt Count 162 K/mm3 (140-440) 01/09/18 06:12 [place] % (Auto) Drilling Fluids Specialist 01/07/18 09:41 Add Manual Diff Complete 01/07/18 09:41 Total Counted 100 01/07/18 09:41 Seg Neuts % (Manual) 81.0 % (40.0-70.0) H 01/07/18 09:41 Band Neutrophils % 1.0 % 01/07/18 09:41 Lymphocytes % (Manual) 7.0 % (13.4-35.0) L 01/07/18 09:41 Reactive Lymphs % (Man) 1.0 % 01/07/18 09:41 Monocytes % (Manual) 5.0 % (0.0-7.3) 01/07/18 09:41 Eosinophils % (Manual) 4.0 % (0.0-4.3) 01/07/18 09:41 Basophils % (Manual) 1.0 % (0.0-1.8) 01/07/18 09:41 Metamyelocytes % 0 % 01/07/18 09:41 Myelocytes % 0 % 01/07/18 09:41 Promyelocytes % 0 % 01/07/18 09:41 Blast Cells % 0 % 01/07/18 09:41 Nucleated RBC % Not Reportable 01/07/18 09:41 Seg Neutrophils # Man 5.1 K/mm3 (1.8-7.7) 01/07/18 09:41 Band Neutrophils # 0.1 K/mm3 01/07/18 09:41 Lymphocytes # (Manual) 0.4 K/mm3 (1.2-5.4) L 01/07/18 09:41 Abs React Lymphs (Man) 0.1 K/mm3 01/07/18 09:41 Monocytes # (Manual) 0.3 K/mm3 (0.0-0.8) 01/07/18 09:41 Eosinophils # (Manual) 0.3 K/mm3 (0.0-0.4) 01/07/18 09:41 Basophils # (Manual) 0.1 K/mm3 (0.0-0.1) 01/07/18 09:41 Metamyelocytes # 0.0 K/mm3 01/07/18 09:41 Myelocytes # 0.0 K/mm3 01/07/18 09:41 Promyelocytes # 0.0 K/mm3 01/07/18 09:41 Blast Cells # 0.0 K/mm3 01/07/18 09:41 WBC Morphology Not Reportable 01/07/18 09:41 Hypersegmented Neuts Not Reportable 01/07/18 09:41 Hyposegmented Neuts Not Reportable 01/07/18 09:41 Hypogranular Neuts Not Reportable 01/07/18 09:41 Smudge Cells Not Reportable 01/07/18 09:41 Toxic Granulation Not Reportable 01/07/18 09:41 Toxic Vacuolation Not Reportable 01/07/18 09:41 Dohle Bodies Not Reportable 01/07/18 09:41 Pelger-Huet Anomaly Not Reportable 01/07/18 09:41 Ellie Rods Not Reportable 01/07/18 09:41 Platelet Estimate Consistent w auto 01/07/18 09:41 Clumped Platelets Not Reportable 01/07/18 09:41 Plt Clumps, EDTA Not Reportable 01/07/18 09:41 Large Platelets Not Reportable 01/07/18 09:41 Giant Platelets Not Reportable 01/07/18 09:41 Platelet Satelliting Not Reportable 01/07/18 09:41 Plt Morphology Comment Not Reportable 01/07/18 09:41 RBC Morphology Not Reportable 01/07/18 09:41 Dimorphic RBCs Not Reportable 01/07/18 09:41 Polychromasia Not Reportable 01/07/18 09:41 Hypochromasia Not Reportable 01/07/18 09:41 Poikilocytosis Not Reportable 01/07/18 09:41 Anisocytosis Not Reportable 01/07/18 09:41 Microcytosis Not Reportable 01/07/18 09:41 Macrocytosis 1+ 01/07/18 09:41 Spherocytes Not Reportable 01/07/18 09:41 Pappenheimer Bodies Not Reportable 01/07/18 09:41 Sickle Cells Not Reportable 01/07/18 09:41 Target Cells Not Reportable 01/07/18 09:41 Tear Drop Cells Not Reportable 01/07/18 09:41 Ovalocytes Not Reportable 01/07/18 09:41 Helmet Cells Not Reportable 01/07/18 09:41 Garcia-[place] Bodies Not Reportable 01/07/18 09:41 [place] Rings Not Reportable 01/07/18 09:41 Miles Cells Not Reportable 01/07/18 09:41 Bite Cells Not Reportable 01/07/18 09:41 Crenated Cell Not Reportable 01/07/18 09:41 Elliptocytes Not Reportable 01/07/18 09:41 Acanthocytes (Spur) Not Reportable 01/07/18 09:41 Rouleaux Not Reportable 01/07/18 09:41 Hemoglobin C Crystals Not Reportable 01/07/18 09:41 Schistocytes Not Reportable 01/07/18 09:41 Malaria parasites Not Reportable 01/07/18 09:41 Buster Bodies Not Reportable 01/07/18 09:41 Hem Pathologist Commnt No 01/07/18 09:41 PT 21.8 Sec. (12.2-14.9) H 01/08/18 08:16 INR 1.78 (0.87-1.13) H 01/08/18 08:16 APTT 40.0 Sec. (24.2-36.6) H 01/07/18 11:07 Sodium 135 mmol/L (137-145) L 01/09/18 06:12 Potassium 2.8 mmol/L (3.6-5.0) L* 01/09/18 06:12 Chloride 95.7 mmol/L (98-107) L 01/09/18 06:12 Carbon Dioxide 29 mmol/L (22-30) 01/09/18 06:12 Anion Gap 13 mmol/L 01/09/18 06:12 BUN 8 mg/dL (9-20) L 01/09/18 06:12 Creatinine 0.4 mg/dL (0.8-1.5) L 01/09/18 06:12 Estimated GFR > 60 ml/min 01/09/18 06:12 BUN/Creatinine Ratio 20 % 01/09/18 06:12 Glucose 92 mg/dL (75-100) 01/09/18 06:12 Calcium 6.9 mg/dL (8.4-10.2) L 01/09/18 06:12 Magnesium 1.20 mg/dL (1.7-2.3) L 01/09/18 14:13 Iron 65 ug/dL (49-181) 01/09/18 10:14 TIBC 97 mcg/dL (250-450) L 01/09/18 10:14 Ferritin 521.2 ng/mL (13.0-400.0) H 01/09/18 10:14 Total Bilirubin 3.20 mg/dL (0.1-1.2) H 01/09/18 06:12 AST 54 units/L (5-40) H 01/09/18 06:12 ALT 18 units/L (7-56) 01/09/18 06:12 Alkaline Phosphatase 79 units/L (35-129) 01/09/18 06:12 Ammonia 52.0 umol/L (25-60) 01/09/18 14:13 NT-Pro-B Natriuret Pep 50.94 pg/mL (0-900) 01/07/18 09:41 Total Protein 6.0 g/dL (6.3-8.2) L D 01/09/18 06:12 Albumin 1.7 g/dL (3.9-5) L 01/09/18 06:12 Albumin/Globulin Ratio 0.4 % 01/09/18 06:12 Urine Color Sheri (Yellow) 01/07/18 14:38 Urine Turbidity Clear (Clear) 01/07/18 14:38 Urine pH 5.0 (5.0-7.0) 01/07/18 14:38 Ur Specific [place] 1.019 (1.003-1.030) 01/07/18 14:38 Urine Protein 30 mg/dl mg/dL (Negative) 01/07/18 14:38 Urine Glucose (UA) Neg mg/dL (Negative) 01/07/18 14:38 Urine Ketones Neg mg/dL (Negative) 01/07/18 14:38 Urine Blood Sm (Negative) 01/07/18 14:38 Urine Nitrite Neg (Negative) 01/07/18 14:38 Urine Bilirubin Sm (Negative) 01/07/18 14:38 Urine Ictotest Negative (Negative) 01/07/18 14:38 Urine Urobilinogen 4.0 mg/dL (<2.0) 01/07/18 14:38 Ur Leukocyte Esterase Lg (Negative) 01/07/18 14:38 Urine WBC (Auto) 122.0 /HPF (0.0-6.0) H 01/07/18 14:38 Urine RBC (Auto) 5.0 /HPF (0.0-6.0) 01/07/18 14:38 U Epithel Cells (Auto) 6.0 /HPF (0-13.0) 01/07/18 14:38 Urine Bacteria (Auto) 2+ /HPF (Negative) 01/07/18 14:38 Urine Mucus Few /HPF 01/07/18 14:38 Fluid Type Paracentesis 01/08/18 Unknown Fluid Color Yellow 01/08/18 Unknown Fluid Appearance Clear 01/08/18 Unknown Fluid pH 7.613 01/08/18 Unknown Fluid WBC 55 /mm3 01/08/18 Unknown Fluid RBC 85 /mm3 01/08/18 Unknown Fluid Seg Neutrophils 16.0 % 01/08/18 Unknown Fluid Lymphocytes 47.0 % 01/08/18 Unknown Fluid Reactive Lymphs 0 % 01/08/18 Unknown Fluid Monocytes 37.0 % 01/08/18 Unknown Fluid Eosinophils 0 % 01/08/18 Unknown Fluid Basophils 0 % 01/08/18 Unknown Salicylates 8.2 mg/dL (2.8-20.0) 01/07/18 12:47 Hep Bs Antigen Non-reactive (Negative) 01/09/18 10:14 Hepatitis C Antibody Non-reactive (NonReactive) 01/09/18 10:14
[2018-01-09] MEDS ORDERED: MAGNESIUM SULFATE 2GM/50ML 2 GM/50 ML BAG IV ONE (21:00)
[2018-01-09] MEDS: CEPHULAC PO SCH (23:19)
[2018-01-10] MEDS: CEPHULAC PO SCH ×4 (05:54→17:37)
[2018-01-10] MEDS: LASIX IV SCH ×2 (05:55→17:37)
[2018-01-10 07:47] LABS: Hemoglobin 11.2 gm/dl (11.8-15.2); Mean Corpuscular HGB Conc 35 % (32-34); Mean Corpuscular Hemoglobin 37 pg (28-32); Mean Corpuscular Volume 106 fl (84-94); Platelet Count 168 K/mm3 (140-440); Red Blood Count 3.01 M/mm3 (3.65-5.03); Red Cell Distribution Width 17.9 % (13.2-15.2)
--- NOTE | 2018-01-10 07:52 | Progress Note ---
Assessment and Plan Assessment and plan: 57 YO Male with Ascites, ETOH Abuse, Cirrhosis, presents to ED for evaluation. Pt states that he has experienced worsening abdominal distention and shortness of breath over the past 1 month with worsening symptoms over the past 1 week. Pt denies fever, chills, CP, Palpitations, NVD, Trauma, recent ill contacts, productive cough, itching, Headache, Seizure, Syncope, hemoptysis, hematemesis, or BRBPR. Pt seen and evaluated in ED and found to have Acute Respiratory Failure secondary to massive ascites. Per patient no diagnosis of CA but has never had a colonoscopy On further discussion the patient reports that he's been to multiple hospitals but does not recall why he only remembers a recent hip surgery with Dr. Alcazar at [facility]. He reports that his last alcohol drink was 5 days ago. He has very poor insight and actually had to count his fingers to decannulate his last alcohol drink was. He does not recall any medications that he is on. When told that he has a FAILING LIVER He exclaims,"Oh that is what it is" (1)Acute Hepatic encephalopathy * Confabulating, Ammonia level checked and elevated, * continue lactulose * Discussed with GI, repeat paracentesis pending, reordered * Correct coagulpathy (2)Acute respiratory failure * Improved with paracentesis. Nebs PRN, NIPPV stand by (3) ETOH abuse * WA protocol, thiamine, folic acid, multivitamin, (4) Ascites-due to alcoholic cirrhosis * S/P Diagnostic and Therapeutic Paracentesis (5) Liver cirrhosis with decompensation * Ammonia level, LFT, supportive care, * Lasix and aldactone adjusted * GI consult-INPUT NOTED * Obtain records from recently visited hospitals-still pending (6) Scrotal Edema * scrotal us r/o epididymtis, Less likely. * scrotal support. (7)Anemia OF chronic Disease * Monitor. (8)Hypokalemia Replace, add aldactone AND adjusted * Hypomagemesema noted and replacement given. (9)DVT prophylaxis * scd to ble while in bed Will need extensively counselling on discharge. Outpatient screening colonoscopy if non noted on his records and if not done here Plan discussed with the patient. Anticipate discharge in a day or two if ok with GI History Interval history: Patient seen and examined, very poor historian. NO confusion today, sp repeat paracentesis, >8 liters removed. Hospitalist Physical - Physical exam Narrative exam: VITAL SIGNS: Reviewed. GENERAL: The patient appeared well nourished and normally developed. Vital signs as documented. HEAD: No signs of head trauma. Temporal wasting with cachexia EYES: Pupils are equal. Extraocular motions intact. EARS: Hearing grossly intact. MOUTH: Oropharynx is normal. NECK: No adenopathy, no JVD. CHEST: Chest with clear breath sounds bilaterally. No wheezes, rales, or rhonchi. CARDIAC: Regular rate and rhythm. S1 and S2, without murmurs, gallops, or rubs. VASCULAR: 3+ bilateral pitting edema lower extremities. Peripheral pulses normal and equal in all extremities. ABDOMEN: Soft, without detectable tenderness. No sign of distention. No rebound or guarding, and no masses palpated. Bowel Sounds normal. MUSCULOSKELETAL: Good range of motion of all major joints. Extremities without clubbing, cyanosis. 3+ bilateral lower extremity pitting edema NEUROLOGIC EXAM: lethargic, arousable, oriented x2. Poor clinical insight No focal sensory or strength deficits. Speech normal. Follows commands. PSYCHIATRIC: Mood normal. SKIN: Enlarged scrotum with erythema extended to bilateral groin - Constitutional Vitals: Temp Pulse Resp BP Pulse Ox 98.0 F 95 H 20 126/82 98 01/10/18 05:25 01/10/18 05:25 01/10/18 05:25 01/10/18 05:25 01/10/18 05:25 General appearance: Present: mild distress Results - Labs CBC & Chem 7: 01/10/18 07:11 01/10/18 07:11 Labs: Laboratory Last Values WBC 5.4 K/mm3 (4.5-11.0) 01/10/18 07:11 RBC 3.01 M/mm3 (3.65-5.03) L 01/10/18 07:11 Hgb 11.2 gm/dl (11.8-15.2) L 01/10/18 07:11 Hct 32.0 % (35.5-45.6) L 01/10/18 07:11 MCV 106 fl (84-94) H 01/10/18 07:11 MCH 37 pg (28-32) H 01/10/18 07:11 MCHC 35 % (32-34) H 01/10/18 07:11 RDW 17.9 % (13.2-15.2) H 01/10/18 07:11 Plt Count 168 K/mm3 (140-440) 01/10/18 07:11 [place] % (Auto) Locomotive Boilermaker 01/07/18 09:41 Add Manual Diff Complete 01/07/18 09:41 Total Counted 100 01/07/18 09:41 Seg Neuts % (Manual) 81.0 % (40.0-70.0) H 01/07/18 09:41 Band Neutrophils % 1.0 % 01/07/18 09:41 Lymphocytes % (Manual) 7.0 % (13.4-35.0) L 01/07/18 09:41 Reactive Lymphs % (Man) 1.0 % 01/07/18 09:41 Monocytes % (Manual) 5.0 % (0.0-7.3) 01/07/18 09:41 Eosinophils % (Manual) 4.0 % (0.0-4.3) 01/07/18 09:41 Basophils % (Manual) 1.0 % (0.0-1.8) 01/07/18 09:41 Metamyelocytes % 0 % 01/07/18 09:41 Myelocytes % 0 % 01/07/18 09:41 Promyelocytes % 0 % 01/07/18 09:41 Blast Cells % 0 % 01/07/18 09:41 Nucleated RBC % Not Reportable 01/07/18 09:41 Seg Neutrophils # Man 5.1 K/mm3 (1.8-7.7) 01/07/18 09:41 Band Neutrophils # 0.1 K/mm3 01/07/18 09:41 Lymphocytes # (Manual) 0.4 K/mm3 (1.2-5.4) L 01/07/18 09:41 Abs React Lymphs (Man) 0.1 K/mm3 01/07/18 09:41 Monocytes # (Manual) 0.3 K/mm3 (0.0-0.8) 01/07/18 09:41 Eosinophils # (Manual) 0.3 K/mm3 (0.0-0.4) 01/07/18 09:41 Basophils # (Manual) 0.1 K/mm3 (0.0-0.1) 01/07/18 09:41 Metamyelocytes # 0.0 K/mm3 01/07/18 09:41 Myelocytes # 0.0 K/mm3 01/07/18 09:41 Promyelocytes # 0.0 K/mm3 01/07/18 09:41 Blast Cells # 0.0 K/mm3 01/07/18 09:41 WBC Morphology Not Reportable 01/07/18 09:41 Hypersegmented Neuts Not Reportable 01/07/18 09:41 Hyposegmented Neuts Not Reportable 01/07/18 09:41 Hypogranular Neuts Not Reportable 01/07/18 09:41 Smudge Cells Not Reportable 01/07/18 09:41 Toxic Granulation Not Reportable 01/07/18 09:41 Toxic Vacuolation Not Reportable 01/07/18 09:41 Dohle Bodies Not Reportable 01/07/18 09:41 Pelger-Huet Anomaly Not Reportable 01/07/18 09:41 Ellie Rods Not Reportable 01/07/18 09:41 Platelet Estimate Consistent w auto 01/07/18 09:41 Clumped Platelets Not Reportable 01/07/18 09:41 Plt Clumps, EDTA Not Reportable 01/07/18 09:41 Large Platelets Not Reportable 01/07/18 09:41 Giant Platelets Not Reportable 01/07/18 09:41 Platelet Satelliting Not Reportable 01/07/18 09:41 Plt Morphology Comment Not Reportable 01/07/18 09:41 RBC Morphology Not Reportable 01/07/18 09:41 Dimorphic RBCs Not Reportable 01/07/18 09:41 Polychromasia Not Reportable 01/07/18 09:41 Hypochromasia Not Reportable 01/07/18 09:41 Poikilocytosis Not Reportable 01/07/18 09:41 Anisocytosis Not Reportable 01/07/18 09:41 Microcytosis Not Reportable 01/07/18 09:41 Macrocytosis 1+ 01/07/18 09:41 Spherocytes Not Reportable 01/07/18 09:41 Pappenheimer Bodies Not Reportable 01/07/18 09:41 Sickle Cells Not Reportable 01/07/18 09:41 Target Cells Not Reportable 01/07/18 09:41 Tear Drop Cells Not Reportable 01/07/18 09:41 Ovalocytes Not Reportable 01/07/18 09:41 Helmet Cells Not Reportable 01/07/18 09:41 Garcia-[place] Bodies Not Reportable 01/07/18 09:41 [place] Rings Not Reportable 01/07/18 09:41 Miles Cells Not Reportable 01/07/18 09:41 Bite Cells Not Reportable 01/07/18 09:41 Crenated Cell Not Reportable 01/07/18 09:41 Elliptocytes Not Reportable 01/07/18 09:41 Acanthocytes (Spur) Not Reportable 01/07/18 09:41 Rouleaux Not Reportable 01/07/18 09:41 Hemoglobin C Crystals Not Reportable 01/07/18 09:41 Schistocytes Not Reportable 01/07/18 09:41 Malaria parasites Not Reportable 01/07/18 09:41 Buster Bodies Not Reportable 01/07/18 09:41 Hem Pathologist Commnt No 01/07/18 09:41 PT 21.8 Sec. (12.2-14.9) H 01/08/18 08:16 INR 1.78 (0.87-1.13) H 01/08/18 08:16 APTT 40.0 Sec. (24.2-36.6) H 01/07/18 11:07 Sodium 135 mmol/L (137-145) L 01/09/18 06:12 Potassium 2.8 mmol/L (3.6-5.0) L* 01/09/18 06:12 Chloride 95.7 mmol/L (98-107) L 01/09/18 06:12 Carbon Dioxide 29 mmol/L (22-30) 01/09/18 06:12 Anion Gap 13 mmol/L 01/09/18 06:12 BUN 8 mg/dL (9-20) L 01/09/18 06:12 Creatinine 0.4 mg/dL (0.8-1.5) L 01/09/18 06:12 Estimated GFR > 60 ml/min 01/09/18 06:12 BUN/Creatinine Ratio 20 % 01/09/18 06:12 Glucose 92 mg/dL (75-100) 01/09/18 06:12 Calcium 6.9 mg/dL (8.4-10.2) L 01/09/18 06:12 Magnesium 1.20 mg/dL (1.7-2.3) L 01/09/18 14:13 Iron 65 ug/dL (49-181) 01/09/18 10:14 TIBC 97 mcg/dL (250-450) L 01/09/18 10:14 Ferritin 521.2 ng/mL (13.0-400.0) H 01/09/18 10:14 Total Bilirubin 3.20 mg/dL (0.1-1.2) H 01/09/18 06:12 AST 54 units/L (5-40) H 01/09/18 06:12 ALT 18 units/L (7-56) 01/09/18 06:12 Alkaline Phosphatase 79 units/L (35-129) 01/09/18 06:12 Ammonia 52.0 umol/L (25-60) 01/09/18 14:13 NT-Pro-B Natriuret Pep 50.94 pg/mL (0-900) 01/07/18 09:41 Total Protein 6.0 g/dL (6.3-8.2) L D 01/09/18 06:12 Albumin 1.7 g/dL (3.9-5) L 01/09/18 06:12 Albumin/Globulin Ratio 0.4 % 01/09/18 06:12 Urine Color Sheri (Yellow) 01/07/18 14:38 Urine Turbidity Clear (Clear) 01/07/18 14:38 Urine pH 5.0 (5.0-7.0) 01/07/18 14:38 Ur Specific [place] 1.019 (1.003-1.030) 01/07/18 14:38 Urine Protein 30 mg/dl mg/dL (Negative) 01/07/18 14:38 Urine Glucose (UA) Neg mg/dL (Negative) 01/07/18 14:38 Urine Ketones Neg mg/dL (Negative) 01/07/18 14:38 Urine Blood Sm (Negative) 01/07/18 14:38 Urine Nitrite Neg (Negative) 01/07/18 14:38 Urine Bilirubin Sm (Negative) 01/07/18 14:38 Urine Ictotest Negative (Negative) 01/07/18 14:38 Urine Urobilinogen 4.0 mg/dL (<2.0) 01/07/18 14:38 Ur Leukocyte Esterase Lg (Negative) 01/07/18 14:38 Urine WBC (Auto) 122.0 /HPF (0.0-6.0) H 01/07/18 14:38 Urine RBC (Auto) 5.0 /HPF (0.0-6.0) 01/07/18 14:38 U Epithel Cells (Auto) 6.0 /HPF (0-13.0) 01/07/18 14:38 Urine Bacteria (Auto) 2+ /HPF (Negative) 01/07/18 14:38 Urine Mucus Few /HPF 01/07/18 14:38 Fluid Type Paracentesis 01/08/18 Unknown Fluid Color Yellow 01/08/18 Unknown Fluid Appearance Clear 01/08/18 Unknown Fluid pH 7.613 01/08/18 Unknown Fluid WBC 55 /mm3 01/08/18 Unknown Fluid RBC 85 /mm3 01/08/18 Unknown Fluid Seg Neutrophils 16.0 % 01/08/18 Unknown Fluid Lymphocytes 47.0 % 01/08/18 Unknown Fluid Reactive Lymphs 0 % 01/08/18 Unknown Fluid Monocytes 37.0 % 01/08/18 Unknown Fluid Eosinophils 0 % 01/08/18 Unknown Fluid Basophils 0 % 01/08/18 Unknown Salicylates 8.2 mg/dL (2.8-20.0) 01/07/18 12:47 Hep Bs Antigen Non-reactive (Negative) 01/09/18 10:14 Hepatitis C Antibody Non-reactive (NonReactive) 01/09/18 10:14 Blood Type O POSITIVE 01/09/18 19:36 Antibody Screen Negative 01/09/18 19:36 Crossmatch See Detail 01/09/18 19:36
[2018-01-10 07:55] LABS: INR 1.66 (0.87-1.13)
[2018-01-10 08:10] LABS: Alanine Aminotransferase 21 units/L (7-56); BUN/Creatinine Ratio 16; Blood Urea Nitrogen 8 mg/dL (9-20); Hemolysis Index 0
--- NOTE | 2018-01-10 12:33 | Ultrasound Report ---
ULTRASOUND PARACENTESIS History: Ascites. Description of procedure: Informed consent was obtained. Sterile technique was utilized. 1% lidocaine for skin anesthesia. Using ultrasound guidance, a 5 [place] centesis needle was advanced into the left lower quadrant peritoneal space. There was spontaneous return of yellow, slightly cloudy fluid. 8.9 L of fluid were aspirated. No complications. Impression: Successful ultrasound guided paracentesis as described.
--- NOTE | 2018-01-10 12:35 | Procedure Note ---
Date of procedure: 01/10/18 Pre-op diagnosis: ascites Post-op diagnosis: same Procedure: US paracentesis Findings: large ascites Anesthesia: local Surgeon: SOPHIA RICK Estimated blood loss: none Pathology: none Specimen disposition: discarded Condition: stable Disposition: floor
[2018-01-10] MEDS: VITAMIN B-1 PO SCH (14:00)
[2018-01-10] MEDS: SODIUM CHLORIDE FLUSH SYRINGE 10 ML IV SCH ×2 (14:00→22:18)
[2018-01-10] MEDS: THERAGRAN Tab PO SCH (14:00)
[2018-01-10] MEDS: ALDACTONE PO SCH ×2 (14:00→22:17)
[2018-01-10] MEDS: cefTRIAXone 2 GM in NACL 0.9% 20 ML IV SCH (14:00)
[2018-01-10] MEDS: FOLVITE PO SCH (14:00)
[2018-01-10] MEDS: ATIVAN IV PRN (16:10)
[2018-01-10] MEDS: KCL 10MEQ/100ML 10 MEQ/100 ML BAG IV SCH ×2 (17:00→18:05)
[2018-01-11] MEDS: CEPHULAC PO SCH ×5 (00:54→19:57)
[2018-01-11] MEDS: LASIX IV SCH ×2 (05:45→19:48)
[2018-01-11 06:47] LABS: Hematocrit 35.6 % (35.5-45.6); Hemoglobin 12.3 gm/dl (11.8-15.2); Mean Corpuscular HGB Conc 35 % (32-34); Mean Corpuscular Hemoglobin 37 pg (28-32); Mean Corpuscular Volume 106 fl (84-94); Platelet Count 179 K/mm3 (140-440); Red Blood Count 3.36 M/mm3 (3.65-5.03); Red Cell Distribution Width 17.3 % (13.2-15.2)
[2018-01-11 07:22] LABS: Alanine Aminotransferase 21 units/L (7-56); Albumin 1.9 g/dL (3.9-5); BUN/Creatinine Ratio 18; Blood Urea Nitrogen 9 mg/dL (9-20); Calcium 7.2 mg/dL (8.4-10.2); Hemolysis Index 21
[2018-01-11] MEDS: VITAMIN B-1 PO SCH (09:45)
[2018-01-11] MEDS: ALDACTONE PO SCH (09:45)
[2018-01-11] MEDS: FOLVITE PO SCH (09:45)
[2018-01-11] MEDS: THERAGRAN Tab PO SCH (09:45)
[2018-01-11] MEDS: cefTRIAXone 2 GM in NACL 0.9% 20 ML IV SCH (09:45)
[2018-01-11] MEDS: SODIUM CHLORIDE FLUSH SYRINGE 10 ML IV SCH ×2 (09:46→23:00)
--- NOTE | 2018-01-11 10:57 | Progress Note ---
Subjective Date of service: 01/11/18 Interval history: Assessment and plan: 57 YO Male with Ascites, ETOH Abuse, Cirrhosis, presents to ED for evaluation. Pt states that he has experienced worsening abdominal distention and shortness of breath over the past 1 month with worsening symptoms over the past 1 week. Pt denies fever, chills, CP, Palpitations, NVD, Trauma, recent ill contacts, productive cough, itching, Headache, Seizure, Syncope, hemoptysis, hematemesis, or BRBPR. Pt seen and evaluated in ED and found to have Acute Respiratory Failure secondary to massive ascites. Per patient no diagnosis of CA but has never had a colonoscopy On further discussion the patient reports that he's been to multiple hospitals but does not recall why he only remembers a recent hip surgery with Dr. Alcazar at [facility]. He reports that his last alcohol drink was 5 days ago. He has very poor insight and actually had to count his fingers to decannulate his last alcohol drink was. He does not recall any medications that he is on. When told that he has a FAILING LIVER He exclaims,"Oh that is what it is" 01/11: Patient is awake alert and oriented. He states testicular pain is better but not resolved he denies any fever or chills. All interdisciplinary notes reviewed. Lab results reviewed. patient seen and examined (1)Acute Hepatic encephalopathy * Improved * Serum ammonia level in the normal range * continue lactulose * S/P paracentesis yesterday (2)Acute respiratory failure * Improved with paracentesis. Nebs PRN, NIPPV stand by (3) ETOH abuse * WA protocol, thiamine, folic acid, multivitamin, (4) Ascites-due to alcoholic cirrhosis * Therapeutic Paracentesis as needed (5) Liver cirrhosis with decompensation * Ammonia level, LFT, supportive care, * Lasix and aldactone * GI consult-INPUT NOTED * Obtain records from recently visited hospitals-still pending (6) Scrotal Edema * scrotal us r/o epididymtis, Less likely. * scrotal support. * Edema and erythema improving , minimally tender (7)Anemia OF chronic Disease * Monitor. (8)Hypokalemia Replace, cont aldactone * Hypomagemesema noted * Week additional potassium supplements today * Monitor lites and magnesium level * Possible discharge tomorrow (9)DVT prophylaxis * scd to ble while in bed Objective - Constitutional Vitals: Vital Signs - 12hr 01/11/18 08:07 Temperature 98.9 F Pulse Rate 102 H Respiratory 19 Rate Blood Pressure 116/82 O2 Sat by Pulse 91 Oximetry General appearance: Present: no acute distress, cachectic - EENT Eyes: PERRL, EOM intact ENT: hearing intact, clear oral mucosa, no thrush - Neck Neck: supple, normal ROM, no masses or JVD - Respiratory Respiratory effort: normal Respiratory: bilateral: CTA, diminished - Cardiovascular Rhythm: regular Heart Sounds: Present: S1 & S2 Extremity abnormal: edema (bilateral 2+ lower extremity edema) - Gastrointestinal General gastrointestinal: Present: soft, non-tender, distended (secondary to ascites) Rectal Exam: deferred - Genitourinary Male genitourinary: scrotal edema (resolving, minimally tender) - Musculoskeletal Musculoskeletal: strength equal bilaterally - Neurologic Neurologic: CNII-XII intact, moves all extremities - Psychiatric Psychiatric: appropriate mood/affect - Labs CBC & Chem 7: 01/11/18 06:05 01/11/18 06:05 Labs: Abnormal lab results 01/11/18 01/11/18 Range/Units 06:05 06:05 RBC 3.36 L (3.65-5.03) M/mm3 MCV 106 H (84-94) fl MCH 37 H (28-32) pg MCHC 35 H (32-34) % RDW 17.3 H (13.2-15.2) % Sodium 134 L (137-145) mmol/L Potassium 3.4 L (3.6-5.0) mmol/L Chloride 93.4 L (98-107) mmol/L Creatinine 0.5 L (0.8-1.5) mg/dL Calcium 7.2 L (8.4-10.2) mg/dL Total Bilirubin 3.40 H (0.1-1.2) mg/dL AST 67 H (5-40) units/L Albumin 1.9 L (3.9-5) g/dL
[2018-01-11] MEDS ORDERED: K-DUR PO ONE (11:00)
--- NOTE | 2018-01-11 13:59 | Gastroenterology Progress Note ---
<VARUN CUMMINGS - Last Filed: 01/11/18 14:00> Assessment and Plan (1) Ascites Massive ascites secondary to cirrhosis with decompensated liver disease. S/p 9.3 liter tap but still has massive ascites. Renal function stable overnight post tap. S/P second paracentesis with albumin given. Needs exclusion of neoplasia causing decompensation. Rule out Budd Chiari superimposed>>>US negative but suboptimal and unalbe to determine direction of flow Rule out hemochromatosis, viral hepatitis superimposed on Laennec's cirrhosis. (2) ETOH abuse On CIWA protocol (3) Liver cirrhosis with ascites (4) Volume overload D/W patient at bedside and family. Pt does not follow up with doctors. He refuses to take medications. He was on no home medications per patient and family. The family( sister and mother) reports the patient is very unlikely to stop drinking. The family has tried multiple rehabs and interventions in the past. I did d/w them and the patient that it is imperative that he stop drinking as he has ESLD. I have also discussed that the patient will need close follow up. Subjective Date of service: 01/11/18 Principal diagnosis: cirrhosis Interval history: Mr Kessler is a 57y/o male admitted with cirrhosis. Pt s family is at bedside today. S/P Paracentesis. Objective - Constitutional Vitals: Temp Pulse Resp BP Pulse Ox 98.9 F 102 H 19 116/82 96 01/11/18 08:07 01/11/18 08:07 01/11/18 08:07 01/11/18 08:07 01/11/18 13:45 General appearance: no acute distress - EENT Eyes: EOM intact ENT: hearing intact - Neck Neck: supple - Respiratory Respiratory: bilateral: diminished - Cardiovascular Rhythm: regular Heart Sounds: Present: systolic murmur - Gastrointestinal General gastrointestinal: Present: soft, non-tender, distended - Integumentary Integumentary: Present: warm, dry - Labs CBC & Chem 7: 01/11/18 06:05 01/11/18 06:05 Labs: Laboratory Results - last 24 hr 01/09/18 01/11/18 01/11/18 10:14 06:05 06:05 WBC 7.0 RBC 3.36 L Hgb 12.3 Hct 35.6 MCV 106 H MCH 37 H MCHC 35 H RDW 17.3 H Plt Count 179 Sodium 134 L Potassium 3.4 L Chloride 93.4 L Carbon Dioxide 30 Anion Gap 14 BUN 9 Creatinine 0.5 L Estimated GFR > 60 BUN/Creatinine Ratio 18 Glucose 87 Calcium 7.2 L Total Bilirubin 3.40 H AST 67 H ALT 21 Alkaline Phosphatase 77 Total Protein 6.9 Albumin 1.9 L Albumin/Globulin Ratio 0.4 Hep B Core Total Ab Nonreactive <PANKAJ CHAUDHRY - Last Filed: 01/11/18 19:40> Assessment and Plan - Patient Problems (1) Ascites Current Visit: Yes Status: Acute Qualifiers: Ascites type: due to alcoholic cirrhosis Qualified Code(s): K70.31 - Alcoholic cirrhosis of liver with ascites (2) ETOH abuse Current Visit: Yes Status: Acute (3) Liver cirrhosis Current Visit: Yes Status: Acute Qualifiers: Ascites presence: with ascites Plan to address problem: Advanced cirrhosis, near end stage. Diuretics, supportive care, ETOH rehab are in order if the patient chooses to engage in health care. Hospice may considered as an alternative. Pankaj Chaudhry MD (4) Volume overload Current Visit: Yes Status: Acute Objective - Constitutional Vitals: Temp Pulse Resp BP Pulse Ox 98.6 F 98 H 19 100/58 95 01/11/18 15:50 01/11/18 15:50 01/11/18 15:50 01/11/18 15:50 01/11/18 15:50 - Labs CBC & Chem 7: 01/11/18 06:05 01/11/18 06:05 Labs: Laboratory Results - last 24 hr 01/09/18 01/11/18 01/11/18 10:14 06:05 06:05 WBC 7.0 RBC 3.36 L Hgb 12.3 Hct 35.6 MCV 106 H MCH 37 H MCHC 35 H RDW 17.3 H Plt Count 179 Sodium 134 L Potassium 3.4 L Chloride 93.4 L Carbon Dioxide 30 Anion Gap 14 BUN 9 Creatinine 0.5 L Estimated GFR > 60 BUN/Creatinine Ratio 18 Glucose 87 Calcium 7.2 L Total Bilirubin 3.40 H AST 67 H ALT 21 Alkaline Phosphatase 77 Total Protein 6.9 Albumin 1.9 L Albumin/Globulin Ratio 0.4 Hep B Core Total Ab Nonreactive
[2018-01-11] MEDS: ATIVAN IV PRN (15:19)
[2018-01-12 04:57] LABS: BUN/Creatinine Ratio 33; Blood Urea Nitrogen 10 mg/dL (9-20); Calcium 7.1 mg/dL (8.4-10.2); Hemolysis Index 47
[2018-01-12] MEDS: CEPHULAC PO SCH ×3 (06:15→18:11)
[2018-01-12] MEDS: ALDACTONE PO SCH ×3 (06:15→22:54)
[2018-01-12] MEDS: LASIX IV SCH ×2 (07:26→18:11)
[2018-01-12] MEDS: cefTRIAXone 2 GM in NACL 0.9% 20 ML IV SCH (10:08)
[2018-01-12] MEDS: THERAGRAN Tab PO SCH (10:08)
[2018-01-12] MEDS: FOLVITE PO SCH (10:08)
[2018-01-12] MEDS: VITAMIN B-1 PO SCH (10:08)
[2018-01-12] MEDS: SODIUM CHLORIDE FLUSH SYRINGE 10 ML IV SCH ×2 (10:09→22:55)
[2018-01-12] MEDS ORDERED: MAGNESIUM SULFATE 2GM/50ML 2 GM/50 ML BAG IV ONE (10:15)
--- NOTE | 2018-01-12 10:27 | Progress Note ---
Subjective Date of service: 01/12/18 Principal diagnosis: cirrhosis Interval history: 57 YO Male with Ascites, ETOH Abuse, Cirrhosis, presents to ED for evaluation. Pt states that he has experienced worsening abdominal distention and shortness of breath over the past 1 month with worsening symptoms over the past 1 week. Pt denies fever, chills, CP, Palpitations, NVD, Trauma, recent ill contacts, productive cough, itching, Headache, Seizure, Syncope, hemoptysis, hematemesis, or BRBPR. Pt seen and evaluated in ED and found to have Acute Respiratory Failure secondary to massive ascites. Per patient no diagnosis of CA but has never had a colonoscopy On further discussion the patient reports that he's been to multiple hospitals but does not recall why he only remembers a recent hip surgery with Dr. Alcazar at [facility]. He reports that his last alcohol drink was 5 days ago. He has very poor insight and actually had to count his fingers to decannulate his last alcohol drink was. He does not recall any medications that he is on. When told that he has a FAILING LIVER He exclaims,"Oh that is what it is" 01/11: Patient is awake alert and oriented. He states testicular pain is better but not resolved he denies any fever or chills. All interdisciplinary notes reviewed. Lab results reviewed. patient seen and examined 01/12 resting, alert, no complaints, lab results reviewed, GI consult note reviewed and appreciated, for placement per family request Assessment and plan: (1)Acute Hepatic encephalopathy * Improved * Serum ammonia level in the normal range * continue lactulose * S/P paracentesis (2)Acute respiratory failure * Improved with paracentesis. Nebs PRN, NIPPV stand by (3) ETOH abuse * CIWA protocol, thiamine, folic acid, multivitamin, (4) Ascites-due to alcoholic cirrhosis * Therapeutic Paracentesis as needed (5) Liver cirrhosis with decompensation/ ESLD * Ammonia level, LFT, supportive care, * Lasix and aldactone * GI consult-INPUT NOTED (6) Scrotal Edema * scrotal us r/o epididymtis, Less likely. * scrotal support. * Edema and erythema improving , minimally tender (7)Anemia OF chronic Disease * Monitor. (8)Hypokalemia Replace, cont aldactone (9) hypomagnesemia * Hypomagemesema noted * 2gm of IV magnesium sulfate ordered * Week additional potassium supplements today * Monitor lytes and magnesium level (9)DVT prophylaxis * scd to ble while in bed Objective - Constitutional Vitals: Vital Signs - 12hr 01/12/18 01/12/18 01/12/18 06:15 07:00 08:06 Temperature 98.5 F Pulse Rate 99 H 91 H Respiratory 19 Rate Blood Pressure 105/70 122/80 O2 Sat by Pulse 95 Oximetry General appearance: Present: no acute distress - EENT Eyes: PERRL, EOM intact ENT: hearing intact, clear oral mucosa, no thrush - Neck Neck: supple, normal ROM, no masses or JVD - Respiratory Respiratory effort: normal Respiratory: bilateral: diminished, negative: rales, rhonchi, wheezing - Cardiovascular Rhythm: regular Heart Sounds: Present: S1 & S2 Extremities: No edema - Gastrointestinal General gastrointestinal: Present: soft, distended (ascites) - Integumentary Integumentary: clear - Musculoskeletal Musculoskeletal: strength equal bilaterally - Neurologic Neurologic: CNII-XII intact, no moves all extremities - Psychiatric Psychiatric: appropriate mood/affect - Labs CBC & Chem 7: 01/11/18 06:05 01/12/18 03:58 Labs: Abnormal lab results 01/12/18 Range/Units 03:58 Sodium 130 L (137-145) mmol/L Potassium 3.5 L (3.6-5.0) mmol/L Chloride 92.1 L (98-107) mmol/L Creatinine 0.3 L (0.8-1.5) mg/dL Glucose 102 H (75-100) mg/dL Calcium 7.1 L (8.4-10.2) mg/dL Magnesium 1.20 L (1.7-2.3) mg/dL
--- NOTE | 2018-01-12 14:19 | Gastroenterology Progress Note ---
Assessment and Plan 1. Decompensated cirrhosis - likely from alcohol; other etiologies evaluated for. check HFE gene as outpt to r/o hemochromatosis but iron study results are likely 2/2 alcohol use. not a tx candidate given on going alcohol intake -afp pending -ascitic fluid studies pending to r/o sbp/cytology -consider MRI of abdomen 2. Alcohol abuse 3. Ascites - on diuretics (200 mg of aldactone and 80 mg of lasix). he needs to be on a less then 2 gm per day sodium diet as this is as essential as diuretics to manage ascites. discussed in detail with pt. would recommend nutrition consult to explain diet in detail with pt Subjective Date of service: 01/12/18 Principal diagnosis: cirrhosis Interval history: pt seen and examined. ascites improved after LVP (still persistent but manageable per pt). he has not been on low sodium diet. denies gi bleeding. reports some abd discomfort with meals Objective - Exam Narrative Exam: gen: nad, appears older than stated age CV: RRR Lungs: decreased breath sounds bilaterally, non labored Abd: soft, + ascites, nt, +bs neuro: oriented x 2 - Constitutional Vitals: Temp Pulse Resp BP Pulse Ox 98.5 F 91 H 19 122/80 95 01/12/18 08:06 01/12/18 07:00 01/12/18 08:06 01/12/18 08:06 01/12/18 07:00 - Labs CBC & Chem 7: 01/11/18 06:05 01/12/18 03:58 Labs: Laboratory Results - last 24 hr 01/12/18 03:58 Sodium 130 L Potassium 3.5 L Chloride 92.1 L Carbon Dioxide 30 Anion Gap 11 BUN 10 Creatinine 0.3 L Estimated GFR > 60 BUN/Creatinine Ratio 33 Glucose 102 H Calcium 7.1 L Magnesium 1.20 L
[2018-01-13] MEDS: CEPHULAC PO SCH ×5 (01:13→23:45)
[2018-01-13] MEDS: LASIX IV SCH (05:56)
[2018-01-13 08:19] LABS: BUN/Creatinine Ratio 28; Blood Urea Nitrogen 11 mg/dL (9-20); Calcium 7.7 mg/dL (8.4-10.2); Hemolysis Index 35
[2018-01-13] MEDS: FOLVITE PO SCH (09:28)
[2018-01-13] MEDS: THERAGRAN Tab PO SCH (09:28)
[2018-01-13] MEDS: VITAMIN B-1 PO SCH (09:28)
[2018-01-13] MEDS: ALDACTONE PO SCH ×2 (09:28→23:45)
[2018-01-13] MEDS: cefTRIAXone 2 GM in NACL 0.9% 20 ML IV SCH (09:29)
[2018-01-13] MEDS: SODIUM CHLORIDE FLUSH SYRINGE 10 ML IV SCH ×2 (09:29→23:44)
--- NOTE | 2018-01-13 11:09 | Consultation ---
History of Present Illness - Reason for Consult Consult date: 01/13/18 hyponatremia Requesting physician: LINNEA LEON - History of Present Illness 57 YO Male with Ascites, ETOH Abuse, Cirrhosis, Colon Cancer presents to ED for evaluation. Pt states that he has experienced worsening abdominal distention and shortness of breath over the past 1 month with worsening symptoms over the past 1 week. Pt denies fever, chills, CP, Palpitations, NVD, Trauma, recent ill contacts, productive cough, itching, Headache, Seizure, Syncope, hemoptysis, hematemesis, or BRBPR. Pt seen and evaluated in ED and found to have Acute Respiratory Failure secondary to massive ascites. Pt admitted to medical floor. He is currently being diuresed. Renal consult requested because of acute hyponatremia. His serum sodium was 1:30 on admission. However it did come up to 137 on the seventh of this month. It has now dropped down to 125 and therefore this consultation. Patient admits to drinking a lot of water. Denies any nausea or vomiting or diarrhea at this time Past History Past Medical History: other (Ascites, ETOH abuse, cirrhosis) Past Surgical History: total hip replacement Social history: single, alcohol abuse Family history: no significant family history (reviewed) Medications and Allergies Allergies Allergy/AdvReac Type Severity Reaction Status Date / Time No Known Allergies Allergy Unverified 01/07/18 09:33 Home Medications Medication Instructions Recorded Confirmed Last Taken Type No Known Home Medications [No 01/07/18 01/07/18 Unknown History Reported Home Medications] Active Meds: Active Medications Acetaminophen (Tylenol) 650 mg PO Q4H PRN PRN Reason: Pain MILD(1-3)/Fever >100.5/VALLEJO Albuterol (Proventil) 2.5 mg IH Q4HRT PRN PRN Reason: Shortness Of Breath Last Admin: 01/07/18 14:36 Dose: 2.5 mg Folic Acid (Folvite) 1 mg PO QDAY [facility] Last Admin: 01/13/18 09:28 Dose: 1 mg Furosemide (Lasix) 40 mg IV 0600,1800 [facility] Last Admin: 01/13/18 05:56 Dose: 40 mg Ceftriaxone Sodium 2 gm/ (Sodium Chloride) 20 mls @ 2 mls/min IV Q24HR [facility] Last Admin: 01/13/18 09:29 Dose: 2 mls/min Sodium Chloride (Nacl 0.9% 500 Ml) 500 mls @ 50 mls/hr IV DIRECT [facility] Lactulose (Cephulac) 20 gm PO Q6HR [facility] Last Admin: 01/13/18 05:56 Dose: Not Given Lorazepam (Ativan) 2 mg IV Q1HR PRN PRN Reason: CIWA-Ar 8-15 Last Admin: 01/11/18 15:19 Dose: 2 mg Lorazepam (Ativan) 4 mg IV Q15MIN PRN PRN Reason: CIWA-Ar >25 Lorazepam (Ativan) 4 mg IV Q1HR PRN PRN Reason: CIWA-Ar 16-25 Multivitamins (Theragran Tab) 1 each PO QDAY [facility] Last Admin: 01/13/18 09:28 Dose: 1 each Ondansetron HCl (Zofran) 4 mg IV Q8H PRN PRN Reason: Nausea And Vomiting Sodium Chloride (Sodium Chloride Flush Syringe 10 Ml) 10 ml IV BID [facility] Last Admin: 01/13/18 09:29 Dose: 10 ml Sodium Chloride (Sodium Chloride Flush Syringe 10 Ml) 10 ml IV PRN PRN PRN Reason: LINE FLUSH Spironolactone (Aldactone) 100 mg PO BID [facility] Last Admin: 01/13/18 09:28 Dose: 100 mg Thiamine HCl (Vitamin B-1) 100 mg PO QDAY [facility] Last Admin: 01/13/18 09:28 Dose: 100 mg Review of Systems All systems: negative (except as noted above) Exam - Vital Signs Vital signs: Vital Signs Temp Pulse Resp BP Pulse Ox 98.4 F 97 H 20 150/91 100 01/07/18 09:33 01/07/18 09:33 01/07/18 09:33 01/07/18 09:33 01/07/18 09:33 - General Appearance General appearance: well-developed, well-nourished, appears stated age EENT: PERRL, mucous membranes moist Neck: Present: neck supple, trachea midline. Absent: JVD/HJR, Masses Respiratory: Clear to Ascultation Heart: regular, normal heart rate, S1S2, no murmurs Gastrointestinal: Present: normoactive bowel sounds, distended, other (ascites present ) Integumentary: no rash, other (trace edema on left ) Results - Lab Results 01/11/18 06:05 01/13/18 07:33 Most recent lab results Calcium 7.7 mg/dL (8.4-10.2) L 01/13/18 07:33 Magnesium 1.30 mg/dL (1.7-2.3) L 01/13/18 07:33 Assessment and Plan Impression * Hyponatremia * Status post respiratory failure * Cirrhosis of liver * Alcohol abuse Recommendations * Suspect his hyponatremia is due to his liver disease and excess free water intake * Patient is clinically out of CHF at this time. He does have some pedal edema on the left side. He has ascites as well. * Shall place him on fluid restriction. Hold his loop diuretic temporarily * Shall do hyponatremia workup as well * He is not a candidate for Samsca due to his liver disease * Monitor fluid status and electrolytes closely * Thank you very much for the consultation. Shall follow along with you
--- NOTE | 2018-01-13 11:23 | Gastroenterology Progress Note ---
Assessment and Plan 1. Decompensated cirrhosis - likely from alcohol; other etiologies evaluated for. check HFE gene as outpt to r/o hemochromatosis but iron study results are likely 2/2 alcohol use. not a tx candidate given on going alcohol intake. AFP level pending. if elevated, obtain MRI of abdomen to r/o HCC -diagnostic tap studies pending 2. Hyponatremia - fluid restriction, cut back on diuretics; nephrology following 2. Alcohol abuse 3. Ascites - low sodium diet; diuretic management per renal given hyponatremia (needs fluid restriction). Subjective Date of service: 01/13/18 Principal diagnosis: cirrhosis Interval history: pt seen and examined. no new complaints. admits to drinking a lot of liquids. abd discomfort/ascites unchanged. Objective - Constitutional Vitals: Temp Pulse Resp BP Pulse Ox 98.8 F 98 H 19 122/83 98 01/13/18 08:15 01/13/18 08:15 01/13/18 08:15 01/13/18 08:15 01/13/18 08:15 General appearance: no acute distress, other (chronically ill appearing, appears older than stated age) - Respiratory Respiratory effort: normal Respiratory: bilateral: CTA - Cardiovascular Rhythm: regular Heart Sounds: Present: S1 & S2 - Gastrointestinal General gastrointestinal: Present: other (+ ascites, soft, mod dist, +bs) - Neurologic Neurological: oriented to person, oriented to place - Psychiatric Psychiatric: appropriate mood/affect - Labs CBC & Chem 7: 01/11/18 06:05 01/13/18 07:33 Labs: Laboratory Results - last 24 hr 01/13/18 07:33 Sodium 125 L Potassium 3.5 L Chloride 86.1 L Carbon Dioxide 28 Anion Gap 14 BUN 11 Creatinine 0.4 L Estimated GFR > 60 BUN/Creatinine Ratio 28 Glucose 87 Calcium 7.7 L Magnesium 1.30 L
[2018-01-13] MEDS ORDERED: MAGNESIUM SULFATE 1 GM in WATER FOR INJ (PF) 23 ML IV ONE (12:14)
--- NOTE | 2018-01-13 12:25 | Progress Note ---
Subjective Date of service: 01/13/18 Principal diagnosis: cirrhosis Interval history: 7 YO Male with Ascites, ETOH Abuse, Cirrhosis, presents to ED for evaluation. Pt states that he has experienced worsening abdominal distention and shortness of breath over the past 1 month with worsening symptoms over the past 1 week. Pt denies fever, chills, CP, Palpitations, NVD, Trauma, recent ill contacts, productive cough, itching, Headache, Seizure, Syncope, hemoptysis, hematemesis, or BRBPR. Pt seen and evaluated in ED and found to have Acute Respiratory Failure secondary to massive ascites. Per patient no diagnosis of CA but has never had a colonoscopy On further discussion the patient reports that he's been to multiple hospitals but does not recall why he only remembers a recent hip surgery with Dr. Alcazar at [facility]. He reports that his last alcohol drink was 5 days ago. He has very poor insight and actually had to count his fingers to decannulate his last alcohol drink was. He does not recall any medications that he is on. When told that he has a FAILING LIVER He exclaims,"Oh that is what it is" 01/11: Patient is awake alert and oriented. He states testicular pain is better but not resolved he denies any fever or chills. All interdisciplinary notes reviewed. Lab results reviewed. patient seen and examined 01/12 resting, alert, no complaints, lab results reviewed, GI consult note reviewed and appreciated, for placement per family request 01/13 no new events noted overnight, no specific complaints, denies chest pain or shortness of breath or abdominal pain. Lab results reviewed GI and nephrology consults reviewed and appreciated. 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 Nephrology consult requested and note reviewed and appreciated Fluid restriction Hyponatremia workup including TSH uric acid urine and plasma osmolality and spot urine electrolytes (1)Acute Hepatic encephalopathy * Improved * Serum ammonia level in the normal range * continue lactulose * S/P paracentesis (2)Acute respiratory failure * Improved with paracentesis. Nebs PRN, NIPPV stand by (3) ETOH abuse * CIWA protocol, thiamine, folic acid, multivitamin, he is not in any withdrawal , (4) Ascites-due to alcoholic cirrhosis * Therapeutic Paracentesis as needed * Ascites fluid appears to be building up and may need paracentesis in a day or 2 (5) Liver cirrhosis with decompensation/ ESLD * supportive care, * Lasix on hold. Continue aldactone * GI consult-INPUT NOTED * I had a long discussion with the patient regarding his condition and discussed DO NOT RESUSCITATE and hospice * He agrees for DO NOT RESUSCITATE for now (6) Scrotal Edema * scrotal us r/o epididymtis, Less likely. * scrotal support. * Edema and erythema improving (7)Anemia OF chronic Disease * Monitor. (8)Hypokalemia Replace, cont aldactone (9) hypomagnesemia: Today's laboratory results reviewed. Magnesium level Still low * 1gm of IV magnesium sulfate ordered * Monitor lytes and magnesium level (10)DVT prophylaxis * scd Objective - Constitutional Vitals: Vital Signs - 12hr 01/13/18 08:15 Temperature 98.8 F Pulse Rate 98 H Respiratory 19 Rate Blood Pressure 122/83 O2 Sat by Pulse 98 Oximetry General appearance: Present: no acute distress, cachectic - EENT Eyes: PERRL, EOM intact - Neck Neck: supple, normal ROM, no masses or JVD - Respiratory Respiratory effort: normal Respiratory: bilateral: CTA, diminished, negative: rhonchi - Cardiovascular Rhythm: regular Heart Sounds: Present: S1 & S2 Extremities: No edema - Gastrointestinal General gastrointestinal: Present: soft, non-tender, distended (and due to ascites) Rectal Exam: deferred - Integumentary Integumentary: clear - Musculoskeletal Musculoskeletal: strength equal bilaterally - Neurologic Neurologic: no focal deficits - Psychiatric Psychiatric: appropriate mood/affect - Labs CBC & Chem 7: 01/11/18 06:05 01/13/18 07:33 Labs: Abnormal lab results 01/13/18 Range/Units 07:33 Sodium 125 L (137-145) mmol/L Potassium 3.5 L (3.6-5.0) mmol/L Chloride 86.1 L (98-107) mmol/L Creatinine 0.4 L (0.8-1.5) mg/dL Calcium 7.7 L (8.4-10.2) mg/dL Magnesium 1.30 L (1.7-2.3) mg/dL
[2018-01-13] MEDS ORDERED: MAGNESIUM SULFATE IV ONE (13:00)
[2018-01-14] MEDS: CEPHULAC PO SCH ×3 (06:57→18:37)
[2018-01-14 07:29] LABS: Total Protein,Body Fluid < 3.0 (15.0-45.0)
[2018-01-14 07:30] LABS: LDH,Body Fluid 35; Triglycerides,Body Fluid 53
--- NOTE | 2018-01-14 08:32 | Progress Note ---
Assessment and Plan Assessment: * Hyponatremia secondary to ADH release due to cirrhosis vs excess free water intake - asymptomatic * Status post respiratory failure * Cirrhosis of liver * Alcohol abuse Plan: * Await urine lytes * Satart Na tablets * Continue fluid restriction. * Continue to hold his loop diuretic temporarily * He is not a candidate for Samsca due to his liver disease * Monitor fluid status and electrolytes closely * Strict I/O * Daily labs Subjective Date of service: 01/14/18 Principal diagnosis: cirrhosis Objective - Vital Signs Vital signs: Vital Signs - 12hr 01/14/18 07:10 Temperature 99.5 F Pulse Rate 102 H Respiratory 20 Rate Blood Pressure 124/85 O2 Sat by Pulse 95 Oximetry - General Appearance General appearance: well-developed, well-nourished EENT: ATNC Respiratory: Present: Clear to Ascultation Cardiology: regular, S1S2 Gastrointestinal: no tenderness, distended Integumentary: no rash, warm and dry Neurologic: alert and oriented x3 Musculoskeletal: other (No edema) Psychiatric: cooperative - Lab 01/11/18 06:05 01/14/18 07:58 Most recent lab results Calcium 7.7 mg/dL (8.4-10.2) L 01/13/18 07:33 Magnesium 1.30 mg/dL (1.7-2.3) L 01/13/18 07:33
[2018-01-14 08:57] LABS: BUN/Creatinine Ratio 33; Blood Urea Nitrogen 13 mg/dL (9-20); Calcium 7.8 mg/dL (8.4-10.2); Hemolysis Index 1
--- NOTE | 2018-01-14 10:15 | Progress Note ---
Assessment and Plan 7 YO Male with Ascites, ETOH Abuse, Cirrhosis, presents to ED for evaluation. Pt states that he has experienced worsening abdominal distention and shortness of breath over the past 1 month with worsening symptoms over the past 1 week. Pt denies fever, chills, CP, Palpitations, NVD, Trauma, recent ill contacts, productive cough, itching, Headache, Seizure, Syncope, hemoptysis, hematemesis, or BRBPR. Pt seen and evaluated in ED and found to have Acute Respiratory Failure secondary to massive ascites. Per patient no diagnosis of CA but has never had a colonoscopy On further discussion the patient reports that he's been to multiple hospitals but does not recall why he only remembers a recent hip surgery with Dr. Alcazar at [facility]. He reports that his last alcohol drink was 5 days ago. He has very poor insight and actually had to count his fingers to decannulate his last alcohol drink was. He does not recall any medications that he is on. When told that he has a FAILING LIVER He exclaims,"Oh that is what it is" 01/11: Patient is awake alert and oriented. He states testicular pain is better but not resolved he denies any fever or chills. All interdisciplinary notes reviewed. Lab results reviewed. patient seen and examined 01/12 resting, alert, no complaints, lab results reviewed, GI consult note reviewed and appreciated, for placement per family request 01/13 no new events noted overnight, no specific complaints, denies chest pain or shortness of breath or abdominal pain. Lab results reviewed GI and nephrology consults reviewed and appreciated. 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 Nephrology consult requested and note reviewed and appreciated Fluid restriction Hyponatremia is very likely dilutional from Live cirrhosis. Normal TSH and uric acid (1)Acute Hepatic encephalopathy * Improved * Serum ammonia level in the normal range * continue lactulose * S/P paracentesis (2)Acute respiratory failure * Improved with paracentesis. Nebs PRN, NIPPV stand by (3) ETOH abuse * CIWA protocol, thiamine, folic acid, multivitamin, he is not in any withdrawal , (4) Ascites-due to alcoholic cirrhosis * Therapeutic Paracentesis as needed * Ascites fluid appears to be building up and may need paracentesis in a day or 2 (5) Liver cirrhosis with decompensation/ ESLD * supportive care, * Lasix on hold. Continue aldactone * GI consult-INPUT NOTED * He agrees for DO NOT RESUSCITATE for now * For MRI to r/o HCC (6) Scrotal Edema * scrotal us showed little evidence of epididymitis * scrotal support. * Edema and erythema improving (7)Anemia OF chronic Disease * Monitor. (8)Hypokalemia Replace, cont aldactone (9) hypomagnesemia: * Monitor lytes and magnesium level Subjective Date of service: 01/14/18 Principal diagnosis: cirrhosis Interval history: Pt seen and examine. No new complaint Objective - Constitutional Vitals: Vital Signs - 12hr 01/14/18 07:10 Temperature 99.5 F Pulse Rate 102 H Respiratory 20 Rate Blood Pressure 124/85 O2 Sat by Pulse 95 Oximetry General appearance: Present: no acute distress, well-nourished - EENT Eyes: PERRL, EOM intact - Neck Neck: supple, normal ROM - Respiratory Respiratory effort: normal Respiratory: bilateral: CTA - Breasts Breasts: deferred - Cardiovascular Rhythm: regular Heart Sounds: Present: S1 & S2. Absent: gallop, rub Extremities: pulses intact, No edema, normal color, Full ROM - Gastrointestinal General gastrointestinal: Present: non-tender, distended, normal bowel sounds, other (ascites) - Genitourinary Male genitourinary: deferred - Integumentary Integumentary: clear, warm, dry - Musculoskeletal Musculoskeletal: 1, strength equal bilaterally - Neurologic Neurologic: moves all extremities - Psychiatric Psychiatric: memory intact, appropriate mood/affect, intact judgment & insight - Labs CBC & Chem 7: 01/11/18 06:05 01/14/18 16:35 Labs: Abnormal lab results 01/08/18 01/14/18 Range/Units Unknown 07:58 Sodium 122 L (137-145) mmol/L Potassium 3.2 L (3.6-5.0) mmol/L Chloride 83.6 L (98-107) mmol/L Creatinine 0.4 L (0.8-1.5) mg/dL Calcium 7.8 L (8.4-10.2) mg/dL Fluid Glucose 107 H (40-70) mg/dL Fluid Total Protein < 3.0 L (15.0-45.0)
[2018-01-14] MEDS: ALDACTONE PO SCH ×2 (11:12→21:10)
[2018-01-14] MEDS: VITAMIN B-1 PO SCH (11:13)
[2018-01-14] MEDS: FOLVITE PO SCH (11:13)
[2018-01-14] MEDS: SODIUM CHLORIDE FLUSH SYRINGE 10 ML IV SCH ×2 (11:13→21:11)
[2018-01-14] MEDS: THERAGRAN Tab PO SCH (11:13)
[2018-01-14] MEDS: cefTRIAXone 2 GM in NACL 0.9% 20 ML IV SCH (11:13)
[2018-01-14] MEDS: SODIUM CHLORIDE PO SCH ×2 (13:51→21:10)
[2018-01-14 14:44] LABS: Albumin 1.9 g/dL (3.9-5); Bilirubin,Direct 1.5 mg/dL (0-0.2)
[2018-01-14 17:12] LABS: BUN/Creatinine Ratio 26; Blood Urea Nitrogen 13 mg/dL (9-20); Calcium 7.8 mg/dL (8.4-10.2); Hemolysis Index 2
[2018-01-15] MEDS: CEPHULAC PO SCH ×4 (00:32→18:11)
[2018-01-15 07:41] LABS: BUN/Creatinine Ratio 33; Blood Urea Nitrogen 13 mg/dL (9-20); Calcium 7.8 mg/dL (8.4-10.2); Hemolysis Index 6
--- NOTE | 2018-01-15 09:44 | Discharge Summary ---
Providers - Providers Date of Admission: 01/07/18 11:58 Attending physician: MENG GUTIERREZ MD 01/08/18 10:53 Consult to Dietitian/Nutrition [CONS] Routine Physician Instructions: Reason For Exam: Reason for Consult: Malnutrition 01/08/18 12:15 Consult to Physician [CONS] Routine Comment: Consulting Provider: NICHOLAS GRANADO Physician Instructions: Reason For Exam: decompensated liver cirrhosis 01/13/18 12:14 Consult to Physician [CONS] Routine Comment: Consulting Provider: ALIYA HOFFMANN Physician Instructions: Reason For Exam: hyponatremia 01/15/18 09:39 Physical Therapy Evaluation and Treat [CONS] Routine Comment: Reason For Exam: difficulty in ambulation Primary care physician: [facility] Hospitalization Reason for admission: decompensated liver cirrhosis Condition: Stable Hospital course: 57 YO Male with Ascites, ETOH Abuse, Cirrhosis, presents to ED for evaluation. Pt states that he has experienced worsening abdominal distention and shortness of breath over the past 1 month with worsening symptoms over the past 1 week. Pt denies fever, chills, CP, Palpitations, NVD, Trauma, recent ill contacts, productive cough, itching, Headache, Seizure, Syncope, hemoptysis, hematemesis, or BRBPR. Pt seen and evaluated in ED and found to have Acute Respiratory Failure secondary to massive ascites. Per patient no diagnosis of CA but has never had a colonoscopy On further discussion the patient reports that he's been to multiple hospitals but does not recall why he only remembers a recent hip surgery with Dr. Alcazar at [facility]. He reports that his last alcohol drink was 5 days ago. He has very poor insight and actually had to count his fingers to decannulate his last alcohol drink was. He does not recall any medications that he is on. When told that he has a FAILING LIVER He exclaims,"Oh that is what it is" 01/11: Patient is awake alert and oriented. He states testicular pain is better but not resolved he denies any fever or chills. All interdisciplinary notes reviewed. Lab results reviewed. patient seen and examined. Patient had repeated paracentesis and was also seen by Nephrology with recommendation for salt tablet and some improvement. Also there was a discussion about hospice but the patient wanted some therapy and recommended for SNF. patient also is to follow with GI and understand he must absolutely avoid ETOH. GI also evaluated the patient. Fluid restriction was also recommended Discharge Diagnosis (1)Acute Hepatic encephalopathy (2)Acute respiratory failure (3) ETOH abuse (4) Ascites-due to alcoholic cirrhosis (5) Liver cirrhosis with decompensation/ ESLD (6) Scrotal Edema (7)Anemia OF chronic Disease (8)Hypokalemia (9) hypomagnesemia (10)Hyponatremia Disposition: DC/TX-03 SNF W [facility] CERT Time spent for discharge: 35 MINS Core Measure Documentation - Palliative Care Palliative Care/ Comfort Measures: Not Applicable - Core Measures Any of the following diagnoses?: none - VTE Discharge Requirements Deep Vein Thrombosis/Pulmonary Embolism Present on Admission: No Exam - Physical Exam Narrative exam: VITAL SIGNS: Reviewed. GENERAL: The patient appeared well nourished and normally developed. Vital signs as documented. HEAD: No signs of head trauma. Temporal wasting with cachexia EYES: Pupils are equal. Extraocular motions intact. EARS: Hearing grossly intact. MOUTH: Oropharynx is normal. NECK: No adenopathy, no JVD. CHEST: Chest with clear breath sounds bilaterally. No wheezes, rales, or rhonchi. CARDIAC: Regular rate and rhythm. S1 and S2, without murmurs, gallops, or rubs. VASCULAR: 2+ bilateral pitting edema lower extremities. Peripheral pulses normal and equal in all extremities. ABDOMEN: Soft, without detectable tenderness. No sign of distention. No rebound or guarding, and no masses palpated. Bowel Sounds normal. MUSCULOSKELETAL: Good range of motion of all major joints. Extremities without clubbing, cyanosis. 2+ bilateral lower extremity pitting edema NEUROLOGIC EXAM: Awake and oriented x2. Poor clinical insight No focal sensory or strength deficits. Speech normal. Follows commands. PSYCHIATRIC: Mood normal. SKIN: Enlarged scrotum with erythema extended to bilateral groin - Constitutional Vitals: Temp Pulse Resp BP Pulse Ox 98.6 F 87 18 116/80 96 01/15/18 08:09 01/15/18 08:09 01/15/18 08:09 01/15/18 08:09 01/15/18 08:09 Plan Activity: advance as tolerated, fall precautions Diet: regular, other (fluid restriction 1litter daily) Special Instructions: restrict fluid intake to (1 liter) Follow up with: ANDREY BECKER MD [Primary Care Provider] - 3-5 Days MICHAEL MANCILLA MD [Staff Physician] - 7 Days NICHOLAS GRANADO MD [Staff Physician] - 7 Days Prescriptions: Folic Acid [Folvite] 1 mg PO QDAY #30 tablet Lactulose [Cephulac] 20 gm PO Q6HR #30 oral.liqd Multivitamin Tab [Multiple Vitamin TAB (Theragran)] 1 each PO QDAY #30 tablet Sodium Chloride 1 gm PO BID #30 tablet Spironolactone [Aldactone] 100 mg PO BID #60 tablet Thiamine [Vitamin B-1] 100 mg PO QDAY #30 tablet
--- NOTE | 2018-01-15 10:12 | Progress Note ---
Assessment and Plan - Patient Problems (1) Hyponatremia Status: Acute Plan to address problem: may be due to increased ADH with cirrhosis. Na leveled off around 129 -on salt tablets. Pt has tense Ascites-planning on paracentesis today. Discussed with hospitalist-. Physical deconditioning--awaiting rehab placement. (2) Ascites Status: Acute Qualifiers: Ascites type: due to alcoholic cirrhosis Qualified Code(s): K70.31 - Alcoholic cirrhosis of liver with ascites (3) Liver cirrhosis Status: Acute Qualifiers: Ascites presence: with ascites Subjective Date of service: 01/15/18 Principal diagnosis: cirrhosis Interval history: pt is alert, oriented, feels weak Objective - Vital Signs Vital signs: Vital Signs - 12hr 01/14/18 01/15/18 23:10 08:09 Temperature 99.1 F 98.6 F Pulse Rate 96 H 87 Respiratory 18 18 Rate Blood Pressure 111/83 116/80 O2 Sat by Pulse 95 96 Oximetry - General Appearance General appearance: chronically ill, other (emaciated with distended abdomen) EENT: mucous membranes dry Neck: no JVD Respiratory: Present: Decreased Breath Sounds Cardiology: regular Gastrointestinal: distended, other (ascites, distended veins over abdomen wall) Neurologic: alert and oriented x3 Musculoskeletal: other (no peripheral edema) Psychiatric: mood/affect appropriate, cooperative - Lab 01/11/18 06:05 01/15/18 06:23 Most recent lab results Calcium 7.8 mg/dL (8.4-10.2) L 01/15/18 06:23 Magnesium 1.30 mg/dL (1.7-2.3) L 01/13/18 07:33
[2018-01-15 10:58] LABS: INR 1.42 (0.87-1.13)
[2018-01-15] MEDS: FOLVITE PO SCH (11:13)
[2018-01-15] MEDS: SODIUM CHLORIDE PO SCH ×2 (11:13→15:30)
[2018-01-15] MEDS: VITAMIN B-1 PO SCH (11:13)
[2018-01-15] MEDS: ALDACTONE PO SCH (11:13)
[2018-01-15] MEDS: cefTRIAXone 2 GM in NACL 0.9% 20 ML IV SCH (11:13)
[2018-01-15] MEDS: SODIUM CHLORIDE FLUSH SYRINGE 10 ML IV SCH (11:14)
[2018-01-15] MEDS: THERAGRAN Tab PO SCH (11:14)
[2018-01-15 11:22] LABS: Bilirubin,Direct 1.5 mg/dL (0-0.2)
[2018-01-15] MEDS ORDERED: NACL 0.9% 500 ML 500 ML IV ONE (13:00)
--- NOTE | 2018-01-15 15:04 | Ultrasound Report ---
ULTRASOUND PARACENTESIS History: Ascites Description of procedure: Informed consent was obtained. Sterile technique was utilized. 1% lidocaine for skin anesthesia. Under ultrasound guidance, a 5 [place]inamese centesis catheter was advanced into the right lower quadrant peritoneal space. There was spontaneous return of cloudy yellow fluid. 7 L of fluid was aspirated. 60 cc of fluid was saved for cytology per the ordering physician's request. No complications. Impression: Successful ultrasound-guided paracentesis.
--- NOTE | 2018-01-15 15:43 | Procedure Note ---
Date of procedure: 01/15/18 Pre-op diagnosis: ascites Post-op diagnosis: same Procedure: US paracentesis Findings: large ascites Anesthesia: local Surgeon: SOPHIA RICK Estimated blood loss: none Pathology: list (60cc) Specimen disposition: to lab Condition: stable Disposition: floor
[2018-01-15 20:07] VITALS: BP 98/54
== END 2018-01-15 20:50 | DRG 441 ==
LOC: ED 09:23 → 4A 11:58 → 3A 13:24
PROVIDERS: ADMIT Internal Medicine; ATTEND Internal Medicine
PROC: 0W9G3ZZ Drainage of Peritoneal Cavity, Percutaneous Approach (ICD-10-PCS; principal; 2018-01-08)
PROC: 3E0234Z Introduction of Serum, Toxoid and Vaccine into Muscle, Percutaneous Approach (ICD-10-PCS; 2018-01-08)
PROC: 0W9G3ZZ Drainage of Peritoneal Cavity, Percutaneous Approach (ICD-10-PCS; 2018-01-10)
PROC: 30233L1 Transfusion of Nonautologous Fresh Plasma into Peripheral Vein, Percutaneous Approach (ICD-10-PCS; 2018-01-10)
PROC: 30233N1 Transfusion of Nonautologous Red Blood Cells into Peripheral Vein, Percutaneous Approach (ICD-10-PCS; 2018-01-10)
PROC: 30233K1 Transfusion of Nonautologous Frozen Plasma into Peripheral Vein, Percutaneous Approach (ICD-10-PCS; 2018-01-10)
PROC: 0W9G3ZZ Drainage of Peritoneal Cavity, Percutaneous Approach (ICD-10-PCS; 2018-01-15)
DX: K72.00 Acute and subacute hepatic failure without coma (principal); J96.01 Acute respiratory failure with hypoxia; E43 Unspecified severe protein-calorie malnutrition; E87.1 Hypo-osmolality and hyponatremia; N30.00 Acute cystitis without hematuria; K70.31 Alcoholic cirrhosis of liver with ascites; F10.10 Alcohol abuse, uncomplicated; N50.89 Other specified disorders of the male genital organs; D63.8 Anemia in other chronic diseases classified elsewhere; E87.6 Hypokalemia; E83.42 Hypomagnesemia; Z68.24 Body mass index [BMI] 24.0-24.9, adult; Z23 Encounter for immunization
CPT/HCPCS: 36415; 49083; 71045; 76705; 80048; 80053; 80074; 80320; 81001; 82040; 82103; 82106; 82140; 82728; 82947; 83550; 83605; 83735; 83880; 83930; 84132; 84160; 84443; 84478; 84550; 85007; 85025; 85027; 85610; 85730; 86705; 86706; 86803; 86850; 86900; 86901; 86920; 87116; 88112; 88305; 89051; 90732; 93005; 93010; 93975; 93979; 94640; 94760; 96372; G0480; J0696; J1940; J2060; J3430; J3475; J3480; J7040; J7050; P9016; P9017

== ENCOUNTER 2018-02-08 11:11 | Emergency (ER) | payer MEDICARE ==
[2018-02-08 12:53] LABS: Hematocrit 37.2 % (35.5-45.6); Hemoglobin 12.5 gm/dl (11.8-15.2); Mean Corpuscular HGB Conc 34 % (32-34); Mean Corpuscular Hemoglobin 35 pg (28-32); Mean Corpuscular Volume 103 fl (84-94); Platelet Count 159 K/mm3 (140-440); Red Blood Count 3.61 M/mm3 (3.65-5.03); Red Cell Distribution Width 14.9 % (13.2-15.2)
[2018-02-08 13:14] LABS: Alanine Aminotransferase 20 units/L (7-56); Albumin 2.3 g/dL (3.9-5); BUN/Creatinine Ratio 22; Blood Urea Nitrogen 11 mg/dL (9-20); Hemolysis Index 18; Lipase 73 units/L (13-60)
[2018-02-08 13:45] LABS: Basophils % (Manual) 0 % (0.0-1.8); Platelet Estimate Consistent w Auto; Total Cells Counted 100
--- NOTE | 2018-02-08 14:15 | XRay Report ---
RIGHT RIBS, 3 VIEWS: History: pain. Routine views of the rib cage demonstrate normal mineralization with no significant contour abnormalities, fractures or destructive lesions. PA view of the chest demonstrates no underlying cardiopulmonary abnormalities, fluid or pneumothorax. IMPRESSION: Unremarkable right rib series.
[2018-02-08 14:44] LABS: INR 1.11 (0.87-1.13)
[2018-02-08 14:45] LABS: Partial Thromboplastin Time 34.3 Sec. (24.2-36.6)
--- NOTE | 2018-02-08 15:45 | Procedure Note ---
Date of procedure: 02/08/18 Pre-op diagnosis: ascites Post-op diagnosis: same Procedure: US paracentesis Findings: cloudy yellow ascites concerning for infection Anesthesia: local Surgeon: SOPHIA RICK Estimated blood loss: none Pathology: list (120cc) Specimen disposition: to lab Condition: stable Disposition: other (back to ER)
--- NOTE | 2018-02-08 16:23 | Emergency Department Report ---
ED Abdominal Pain HPI - General Chief Complaint: Medical Clearance Time Seen by Provider: 02/08/18 13:20 Source: patient Mode of arrival: Wheelchair Limitations: No Limitations - History of Present Illness Initial Comments: 57-year-old male with a past medical history of liver failure with associated ascites with previous paracentesis, hypertension, and hip replacement presents to the hospital pending a right rib pain and abdominal distention. Patient uses a wheelchair and states he actually struck his right ribs with a door 4 days ago. He has continued to have right lateral rib pain rated a 8/10 intensity, constant, worse palpation and movement. Shortness of breath and cough reported. Patient was actually scheduled for paracentesis at 1 PM today but ended up here in the ER. Patient also injured his right distal thumb nail today. Patient currently resides at home with a roomate but with previously in a residential rehabilitation facility. Patient uses a wheelchair due to pain secondary to previous left hip replacement. Tetanus status up-to-date Severity scale (0 -10): 6 - Related Data Previous Rx's Medication Instructions Recorded Last Taken Type Folic Acid [Folvite] 1 mg PO QDAY #30 tablet 01/15/18 Unknown Rx Lactulose [Cephulac] 20 gm PO Q6HR #30 oral.liqd 01/15/18 Unknown Rx Multivitamin Tab [Multiple Vitamin 1 each PO QDAY #30 tablet 01/15/18 Unknown Rx TAB (Theragran)] Sodium Chloride 1 gm PO BID #30 tablet 01/15/18 Unknown Rx Spironolactone [Aldactone] 100 mg PO BID #60 tablet 01/15/18 Unknown Rx Thiamine [Vitamin B-1] 100 mg PO QDAY #30 tablet 01/15/18 Unknown Rx Levofloxacin [Levaquin TAB] 500 mg PO DAILY #6 tablet 02/08/18 Unknown Rx Allergies Allergy/AdvReac Type Severity Reaction Status Date / Time No Known Allergies Allergy Verified 02/08/18 12:12 ED Review of Systems ROS: Stated complaint: Other details as noted in HPI ED Past Medical Hx - Past Medical History Hx Hypertension: Yes (not taking medication) Additional medical history: LIVER FAILURE - Surgical History Additional Surgical History: hip replacement. - Social History Smoking Status: Never Smoker Substance Use Type: None - Medications Home Medications: Home Medications Medication Instructions Recorded Confirmed Last Taken Type Folic Acid [Folvite] 1 mg PO QDAY #30 tablet 01/15/18 Unknown Rx Lactulose [Cephulac] 20 gm PO Q6HR #30 oral.liqd 01/15/18 Unknown Rx Multivitamin Tab [Multiple Vitamin 1 each PO QDAY #30 tablet 01/15/18 Unknown Rx TAB (Theragran)] Sodium Chloride 1 gm PO BID #30 tablet 01/15/18 Unknown Rx Spironolactone [Aldactone] 100 mg PO BID #60 tablet 01/15/18 Unknown Rx Thiamine [Vitamin B-1] 100 mg PO QDAY #30 tablet 01/15/18 Unknown Rx Levofloxacin [Levaquin TAB] 500 mg PO DAILY #6 tablet 02/08/18 Unknown Rx ED Physical Exam - General Limitations: No Limitations - Other Other exam information: General: No limitations, patient is alert in no acute distress Head exam: Atraumatic, normocephalic Eyes exam: Normal appearance ENT: Moist mucous membrane, normal oropharynx Neck exam: Normal inspection, full range of motion, no meningismus nontender Respiratory exam: Clear to auscultation bilateral, no wheezes, rales, crackles Cardiovascular: Normal rate and rhythm, right lateral rib pain approximately ninth and 10th and 11th rib. Abdomen: Soft, distended abdomen, firm, nontender, with normal bowel sounds, no rebound, or guarding Extremity: normal inspection no deformity, full range of motion of thumb, small distal thumb nail injury with minimal bleeding. Back: Normal Inspection, full range of motion, no tenderness Neurologic: Alert, oriented x3, cranial nerves intact, no motor or sensory deficit Psychiatric: normal affect, normal mood Skin: Minor injury to distal right thumb nail with minimum bleeding. ED Course Vital Signs 02/08/18 02/08/18 02/08/18 12:12 13:36 13:57 Temperature 98.3 F 98.1 F Pulse Rate 58 L 89 86 Respiratory 18 12 20 Rate Blood Pressure 123/80 Blood Pressure 127/89 [Left] O2 Sat by Pulse 96 96 Oximetry 02/08/18 02/08/18 02/08/18 14:01 14:15 14:30 Temperature Pulse Rate 84 86 98 H Respiratory 17 27 H 17 Rate Blood Pressure 124/85 110/78 Blood Pressure [Left] O2 Sat by Pulse 98 97 98 Oximetry 02/08/18 14:45 Temperature Pulse Rate 86 Respiratory 14 Rate Blood Pressure 119/80 Blood Pressure [Left] O2 Sat by Pulse 100 Oximetry - Consultations Consultation #1: 02/08/18 16:26 case D/w Dr Mary Beth OLIVAS. rec empirical levaquin 500 mg qd X 1 week while fluid studies pending. ED Medical Decision Making - Lab Data Result diagrams: 02/08/18 12:28 02/08/18 12:28 Lab Results 02/08/18 02/08/18 02/08/18 Range/Units 12:28 12:28 14:18 WBC 4.3 L (4.5-11.0) K/mm3 RBC 3.61 L (3.65-5.03) M/mm3 Hgb 12.5 (11.8-15.2) gm/dl Hct 37.2 (35.5-45.6) % MCV 103 H (84-94) fl MCH 35 H (28-32) pg MCHC 34 (32-34) % RDW 14.9 (13.2-15.2) % Plt Count 159 (140-440) K/mm3 [place] % (Auto) Sugar Laboratory Assistant Add Manual Diff Complete Total Counted 100 Seg Neuts % (Manual) 67.0 (40.0-70.0) % Band Neutrophils % 1.0 % Lymphocytes % (Manual) 16.0 (13.4-35.0) % Reactive Lymphs % (Man) 2.0 % Monocytes % (Manual) 13.0 H (0.0-7.3) % Eosinophils % (Manual) 1.0 (0.0-4.3) % Basophils % (Manual) 0 (0.0-1.8) % Metamyelocytes % 0 % Myelocytes % 0 % Promyelocytes % 0 % Blast Cells % 0 % Nucleated RBC % Not Reportable Seg Neutrophils # Man 2.9 (1.8-7.7) K/mm3 Band Neutrophils # 0.0 K/mm3 Lymphocytes # (Manual) 0.7 L (1.2-5.4) K/mm3 Abs React Lymphs (Man) 0.1 K/mm3 Monocytes # (Manual) 0.6 (0.0-0.8) K/mm3 Eosinophils # (Manual) 0.0 (0.0-0.4) K/mm3 Basophils # (Manual) 0.0 (0.0-0.1) K/mm3 Metamyelocytes # 0.0 K/mm3 Myelocytes # 0.0 K/mm3 Promyelocytes # 0.0 K/mm3 Blast Cells # 0.0 K/mm3 WBC Morphology Not Reportable Hypersegmented Neuts Not Reportable Hyposegmented Neuts Not Reportable Hypogranular Neuts Not Reportable Smudge Cells Not Reportable Toxic Granulation Not Reportable Toxic Vacuolation Not Reportable Dohle Bodies Not Reportable Pelger-Huet Anomaly Not Reportable Ellie Rods Not Reportable Platelet Estimate Consistent w auto Clumped Platelets Not Reportable Plt Clumps, EDTA Not Reportable Large Platelets Not Reportable Giant Platelets Not Reportable Platelet Satelliting Not Reportable Plt Morphology Comment Not Reportable RBC Morphology Not Reportable Dimorphic RBCs Not Reportable Polychromasia Not Reportable Hypochromasia Not Reportable Poikilocytosis Not Reportable Anisocytosis Not Reportable Microcytosis Not Reportable Macrocytosis Not Reportable Spherocytes Not Reportable Pappenheimer Bodies Not Reportable Sickle Cells Not Reportable Target Cells Not Reportable Tear Drop Cells Not Reportable Ovalocytes Not Reportable Helmet Cells Not Reportable [place] Bodies Not Reportable [place] Rings Not Reportable [place] Cells Not Reportable Bite Cells Not Reportable Crenated Cell Not Reportable Elliptocytes Not Reportable Acanthocytes (Spur) Not Reportable Rouleaux Not Reportable Hemoglobin C Crystals Not Reportable Schistocytes Not Reportable Malaria parasites Not Reportable Buster Bodies Not Reportable Hem Pathologist Commnt No PT 14.9 (12.2-14.9) Sec. INR 1.11 (0.87-1.13) APTT 34.3 (24.2-36.6) Sec. Sodium 133 L (137-145) mmol/L Potassium 3.5 L (3.6-5.0) mmol/L Chloride 92.6 L (98-107) mmol/L Carbon Dioxide 27 (22-30) mmol/L Anion Gap 17 mmol/L BUN 11 (9-20) mg/dL Creatinine 0.5 L (0.8-1.5) mg/dL Estimated GFR > 60 ml/min BUN/Creatinine Ratio 22 % Glucose 89 (75-100) mg/dL Calcium 8.0 L (8.4-10.2) mg/dL Total Bilirubin 2.20 H (0.1-1.2) mg/dL AST 46 H (5-40) units/L ALT 20 (7-56) units/L Alkaline Phosphatase 98 (35-129) units/L Total Protein 7.3 (6.3-8.2) g/dL Albumin 2.3 L (3.9-5) g/dL Albumin/Globulin Ratio 0.5 % Lipase 73 H (13-60) units/L - Radiology Data Radiology results: report reviewed RIGHT RIBS, 3 VIEWS: History: pain. Routine views of the rib cage demonstrate normal mineralization with no significant contour abnormalities, fractures or destructive lesions. PA view of the chest demonstrates no underlying cardiopulmonary abnormalities, fluid or pneumothorax. IMPRESSION: Unremarkable right rib series. - Medical Decision Making Patient has cloudy fluid without signs of infection. Culture is pending. Will empirically treat with Levaquin as recommended by GI. Outpatient follow-up be advised. 10.8 L of fluid removed from abd - Differential Diagnosis ascites, rib fracture, effusion, contusion Critical Care Time: No Critical care attestation.: If time is entered above; I have spent that time in minutes in the direct care of this critically ill patient, excluding procedure time. ED Disposition Clinical Impression: Liver cirrhosis, Ascites, Contusion of rib on right side, Nail, injury by Disposition: DC-01 TO HOME OR SELFCARE Is pt being admited?: No Does the pt Need Aspirin: No Condition: Stable Instructions: Ascites (ED), Rib Fracture (ED) Additional Instructions: Take the antibiotic as prescribed. We are waiting for your culture results to come back to determine if there is an infection in your stomach. If you shave fevers or worsening pain. Return to the ER for repeat examination. You have been provides rib fracture discharge instructions have, there are not currently any fracture and ou have bruising of your ribs. Follow up with your primary care doctor and the GI doctor provided. Prescriptions: Levofloxacin [Levaquin TAB] 500 mg PO DAILY #6 tablet Referrals: your, doctor [Other] - 3-5 Days NICHOLAS GRANADO MD [Staff Physician] - 3-5 Days (GI doctor ) Time of Disposition: 16:36
[2018-02-08] MEDS ORDERED: LEVAQUIN PO ONE (16:24)
[2018-02-08 18:04] LABS: Total Cells Counted 100 /mm3
[2018-02-08 18:51] VITALS: BP 160/75
--- NOTE | 2018-02-11 08:20 | Ultrasound Report ---
ULTRASOUND GUIDED PARACENTESIS: 02/08/18 13:51:00 CLINICAL: Ascites. FINDINGS: Ultrasound demonstrated a large volume of ascites. Ultrasound guided paracentesis was performed by Dr. Small and 10.8 L of fluid was removed. IMPRESSION: Successful paracentesis with removal of a large volume of fluid.
== END 2018-02-08 18:45 | disposition home or self-care (01) ==
LOC: CATHLABREC 11:11 → ED 11:11 → EDSTATUS 12:00 → ED 18:45
DX: S20.211A Contusion of right front wall of thorax, initial encounter (principal); S69.91XA Unspecified injury of right wrist, hand and finger(s), initial encounter; R18.8 Other ascites; R06.02 Shortness of breath; K74.60 Unspecified cirrhosis of liver; I10 Essential (primary) hypertension; W22.8XXA Striking against or struck by other objects, initial encounter; Y93.89 Activity, other specified; Y92.89 Other specified places as the place of occurrence of the external cause; Y99.8 Other external cause status
CPT/HCPCS: 36415; 49083; 80053; 83690; 84160; 85007; 85025; 85610; 85730; 87116; 88112; 88305; 89051; 99284

== ENCOUNTER 2018-02-25 07:49 | Inpatient (IN) | payer MEDICARE ==
[2018-02-25] MEDS ORDERED: NACL 0.9% 1000 ML 1,000 ML IV ONE (08:21)
[2018-02-25 08:45] LABS: Basophils # (Auto) 0.1 K/mm3 (0.0-0.1); Basophils % (Auto) 1.4 % (0.0-1.8); Eosinophils # (Auto) 0.3 K/mm3 (0.0-0.4); Eosinophils % (Auto) 4.5 % (0.0-4.3); Hematocrit 34.1 % (35.5-45.6); Hemoglobin 12.1 gm/dl (11.8-15.2); Lymphocytes # (Auto) 1.4 K/mm3 (1.2-5.4); Lymphocytes % (Auto) 24.2 % (13.4-35.0); Mean Corpuscular HGB Conc 35 % (32-34); Mean Corpuscular Hemoglobin 35 pg (28-32); Mean Corpuscular Volume 99 fl (84-94); Monocytes # (Auto) 0.8 K/mm3 (0.0-0.8); Monocytes % (Auto) 14.3 % (0.0-7.3); Platelet Count 231 K/mm3 (140-440); Red Blood Count 3.44 M/mm3 (3.65-5.03); Red Cell Distribution Width 14.9 % (13.2-15.2)
[2018-02-25 08:56] LABS: INR 1.17 (0.87-1.13); Partial Thromboplastin Time 32.4 Sec. (24.2-36.6)
[2018-02-25 09:04] LABS: Alanine Aminotransferase 18 units/L (7-56); Albumin 2.4 g/dL (3.9-5); BUN/Creatinine Ratio 28; Bilirubin,Direct 0.4 mg/dL (0-0.2); Blood Urea Nitrogen 22 mg/dL (9-20); Hemolysis Index 1
[2018-02-25] MEDS ORDERED: ZOFRAN IV ONE (17:25)
[2018-02-25] MEDS ORDERED: SUBLIMAZE IV ONE (17:25)
--- NOTE | 2018-02-25 17:32 | Emergency Department Report ---
HPI - General Chief Complaint: Abdominal Pain Time Seen by Provider: 02/25/18 16:23 - HPI HPI: The patient is a 57-year-old male with a significant history of alcohol cirrhosis, presents for evaluation of abdominal pain. The patient reports 1 day of constant severe abdominal pain, pressure-like in quality, exacerbated with movement, and associated with diffuse swelling of the stomach and nausea without emesis. The patient denies fever, chills, night sweats, diarrhea, blood in the stool, dark tarry stool, dysuria, hematuria, flank pain, genital discharge, inability to pass flatus. ED Past Medical Hx - Past Medical History Hx Hypertension: Yes (not taking medication) Additional medical history: LIVER FAILURE - Surgical History Additional Surgical History: hip replacement. - Social History Smoking Status: Former Smoker Substance Use Type: Alcohol - Medications Home Medications: Home Medications Medication Instructions Recorded Confirmed Last Taken Type Folic Acid [Folvite] 1 mg PO QDAY #30 tablet 01/15/18 Unknown Rx Lactulose [Cephulac] 20 gm PO Q6HR #30 oral.liqd 01/15/18 Unknown Rx Multivitamin Tab [Multiple Vitamin 1 each PO QDAY #30 tablet 01/15/18 Unknown Rx TAB (Theragran)] Sodium Chloride 1 gm PO BID #30 tablet 01/15/18 Unknown Rx Spironolactone [Aldactone] 100 mg PO BID #60 tablet 01/15/18 Unknown Rx Thiamine [Vitamin B-1] 100 mg PO QDAY #30 tablet 01/15/18 Unknown Rx Levofloxacin [Levaquin TAB] 500 mg PO DAILY #6 tablet 02/08/18 Unknown Rx ED Review of Systems ROS: Stated complaint: LIVER PAIN Other details as noted in HPI Constitutional: denies: fever ENT: denies: throat or neck pain Respiratory: denies: cough, shortness of breath Cardiovascular: denies: chest pain Endocrine: denies unexplained weight loss or gain Gastrointestinal: reports: abdominal pain, nausea Genitourinary: denies: dysuria Musculoskeletal: denies: leg swelling Skin: denies: rash Neurological: denies: headache Hematological/Lymphatic: denies: easy bleeding or easy bruising Psych: denies sadness or hopelessness Physical Exam - Physical Exam Vital Signs: Vital Signs 02/25/18 02/25/18 02/25/18 08:17 13:51 15:57 Temperature 98.8 F 98.6 F Pulse Rate 106 H 99 H 87 Respiratory 18 18 22 Rate Blood Pressure 137/89 Blood Pressure 121/77 142/83 [Left] O2 Sat by Pulse 96 98 Oximetry Physical Exam: General: well-nourished, well-developed, no acute distress Head: Normocephalic, atraumatic Eyes: normal sclera ENT: Mucous membranes are pink and moist Neck: trachea midline, neck supple, No neck stiffness, no cervical adenopathy Respiratory: Breath sounds equal bilaterally, no wheezing, rales, or rhonchi Cardio: S1 and S2 present, no murmurs, rubs, gallops, capillary refill is brisk Abdomen: Normoactive bowel sounds, abdomen distended and taught, generalized tenderness to palpation present, no rigidity, no guarding or rebound tenderness Musc: No pitting edema Skin: No rash Neuro: no facial drooping, normal speech Psych: Normal affect ED Course Vital Signs 02/25/18 02/25/18 02/25/18 08:17 13:51 15:57 Temperature 98.8 F 98.6 F Pulse Rate 106 H 99 H 87 Respiratory 18 18 22 Rate Blood Pressure 137/89 Blood Pressure 121/77 142/83 [Left] O2 Sat by Pulse 96 98 Oximetry ED Medical Decision Making - Lab Data Result diagrams: 02/25/18 08:24 02/25/18 08:24 - Medical Decision Making The patient was seen and examined by myself. The patient is placed on a quality assurance monitor body and continuous pulse ox. On initial evaluation, the patient was found to be in no distress. Evaluation orders were placed. The patient is given pain medicine, and by mouth spironolactone for treatment of his ascites and fluid overload. Lab results are not concerning. Paracentesis of the abdomen is ordered for definitive treatment. The patient is reevaluated and reported that his pain persisted despite pain medication. As the patient's pain is refractory to pain medicine, and as paracentesis unable to be performed at this time, the patient be admitted for definitive treatment in the morning. The on-call hospitalist service was contacted. They agreed to admit the patient for further treatment and close monitoring. The ED admit order was placed. The patient was admitted in guarded condition. Critical care attestation.: If time is entered above; I have spent that time in minutes in the direct care of this critically ill patient, excluding procedure time. ED Disposition Clinical Impression: Acute generalized abdominal pain Liver cirrhosis Qualifiers: Hepatic cirrhosis type: alcoholic cirrhosis Ascites presence: with ascites Qualified Code(s): K70.31 - Alcoholic cirrhosis of liver with ascites Ascites Qualifiers: Ascites type: due to alcoholic cirrhosis Qualified Code(s): K70.31 - Alcoholic cirrhosis of liver with ascites Volume overload Qualifiers: Hypervolemia type: unspecified Qualified Code(s): E87.70 - Fluid overload, unspecified Disposition: 09 OP ADMIT IP TO THIS HOSP Is pt being admited?: No Does the pt Need Aspirin: No Condition: Fair Referrals: PRIMARY CARE, [Primary Care Provider] - 3-5 Days Time of Disposition: 17:30
[2018-02-25] MEDS ORDERED: ALDACTONE PO ONE ×2 (18:00→22:00)
[2018-02-25 19:40] LABS: Bilirubin,Urine NEG (Negative); Blood,Urine NEG (Negative); Mucus,Urine FEW /HPF; Protein,Urine <15 mg/dL mg/dL (Negative)
[2018-02-25 19:43] LABS: Color,Urine Dark Yellow (Yellow)
[2018-02-25] MEDS ORDERED: THERAGRAN Tab PO ONE (20:14)
[2018-02-25] MEDS: THERAGRAN Tab PO SCH (20:19)
[2018-02-25] MEDS: FOLVITE PO SCH (23:33)
[2018-02-25] MEDS: CEPHULAC PO SCH ×2 (23:34→23:40)
[2018-02-25] MEDS: VITAMIN B-1 PO SCH (23:39)
[2018-02-26] MEDS ORDERED: MORPHINE IV ONE (00:09)
[2018-02-26] MEDS: CEPHULAC PO SCH ×4 (00:25→18:36)
--- NOTE | 2018-02-26 03:05 | Event Note ---
Date: 02/25/18 See history and physical in the reports Severe ascites Paracentesis in a.m.
[2018-02-26] MEDS ORDERED: SODIUM CHLORIDE FLUSH SYRINGE 10 ML IV PRN (03:10)
[2018-02-26] MEDS ORDERED: TYLENOL PO PRN (03:10)
[2018-02-26] MEDS ORDERED: MORPHINE IV PRN (03:10)
[2018-02-26] MEDS ORDERED: ZOFRAN IV PRN (03:10)
[2018-02-26] MEDS ORDERED: PERCOCET 5/325 PO PRN (03:10)
--- NOTE | 2018-02-26 04:51 | History and Physical Report ---
CHIEF COMPLAINT: Abdominal distention and abdominal pain. HISTORY OF PRESENT ILLNESS: A 57-year-old male with history of alcoholic cirrhosis, comes in for abdominal pain and abdominal distention of 1 week duration. Severe abdominal pain about 8 on a scale of 1-10. No fever or chills. The patient got paracentesis couple of months ago. The patient has history of alcoholism. Stopped alcohol consumption 3 months ago, was doing a pint of gin everyday till then, has been doing it for last 30 years. Some shortness of breath present. No blood in the stool. No dark tarry stools. No confusion. PAST MEDICAL HISTORY: As mentioned, alcoholic cirrhosis and liver failure. No hypotension. CURRENT MEDICATIONS: On the chart. SURGICAL HISTORY: Left hip replacement. SOCIAL HISTORY: Former smoker. FAMILY HISTORY: Hypertension. REVIEW OF SYSTEMS: Significant for severe distention of the abdomen, shortness of breath, and abdominal pain. Abdominal pain is 8 on a scale of 1-10. Otherwise, review of systems negative. PHYSICAL EXAMINATION: GENERAL: Middle-aged male, cooperative during examination. VITAL SIGNS: Temperature 98.8, pulse is 106, respirations are 18, blood pressure 137/89. HEENT: Unremarkable. Pupils equal and reactive. NECK: Supple, no lymphadenopathy, no thyromegaly. LUNGS: Clear to auscultation and percussion. Good air entry. ABDOMEN: Distended. CARDIOVASCULAR: S1, S2 heard. No gallop, no murmur, no rub. Apical impulse in left fifth intercostal space and midclavicular line. ABDOMEN: Severely distended, fluid thrill present. Bowel sounds are normal, present. EXTREMITIES: Slight pedal edema present. CENTRAL NERVOUS SYSTEM: Alert and oriented x 4. No altered sensorium. SKIN: Normal. LABORATORY DATA: White count is 5800, H and H are 12.1 and 34.1, and platelet count is 231,000. Protime is 1.17. Sodium is 134, slightly low. BUN and creatinine are 22 and 0.8. Calcium is 8.0, AST 60, ALT is 18. Ammonia 17. Urine shows white cells of 32. ASSESSMENT AND PLAN: 1. Severe ascites, needs paracentesis. IR consult requested. Discussed with . The patient to get paracentesis tomorrow morning. 2. Hyponatremia, very mild. 3. Urinary tract infection. The patient initiated on Rocephin 1 gram IV piggyback q24. 4. Hepatic failure. AST is 60. The patient has stopped alcohol consumption 3 months ago. 5. Deep venous thrombosis prophylaxis, heparin 5000 q.12. In summary, the patient has severe ascites and needs to get paracentesis and probable discharge after removal of fluid. The patient has no altered sensorium. JOB# [id number] YOSELYN/ROSA
[2018-02-26] MEDS ORDERED: SODIUM CHLORIDE FLUSH SYRINGE 10 ML IV SCH (10:00)
[2018-02-26] MEDS ORDERED: PEPCID IV SCH (10:00)
[2018-02-26] MEDS ORDERED: ALDACTONE PO SCH (10:00)
[2018-02-26] MEDS: FOLVITE PO SCH (13:29)
[2018-02-26] MEDS: THERAGRAN Tab PO SCH (13:30)
[2018-02-26 13:31] LABS: Total Cells Counted 100 /mm3
[2018-02-26] MEDS: VITAMIN B-1 PO SCH (13:31)
--- NOTE | 2018-02-26 14:16 | Ultrasound Report ---
ULTRASOUND PARACENTESIS History: Ascites Description of procedure: Informed consent was obtained. Sterile technique was utilized. 1% lidocaine skin anesthesia. Using ultrasound guidance, a 5 [place]ian centesis needle was advanced into the right peritoneal space. There was spontaneous return of cloudy yellow fluid. 10.3 L of fluid was aspirated. 120 cc of fluid was saved for laboratory analysis. Impression: Successful ultrasound guided paracentesis as described.
--- NOTE | 2018-02-26 14:40 | Discharge Summary ---
Providers - Providers Date of Admission: 02/25/18 18:22 Attending physician: BRIANNA WHITE MD 02/25/18 17:27 Consult to Interventional Radiology [CONS] Stat Consulting Provider: JAMIE WHITMORE Reason For Exam: thoracentesis Place consult to:: Dr Jamie Whitmore Notified:: Dr Tsai Phone number called:: [phone] Was contact made?: Yes If yes, spoke with:: Dr Tsai Time called:: 06:51 02/26/18 03:10 Consult to Physician [CONS] Routine Comment: Consulting Provider: JAMIE WHITMORE Physician Instructions: Reason For Exam: Ascites Primary care physician: BEE FARMER Hospitalization Reason for admission: Massive ascites, UTI Condition: Stable Procedures: paracentesis Hospital course: 57-year-old male with medical history significant for alcoholic cirrhosis, ascites was presented to the emergency department due to abdominal pain and distention. Patient had UTI and treated with antibiotics. Interventional radiology was consulted and paracenteses was done. Patient's distention and abdominal pain resolved and discharged home in a stable condition with by mouth antibiotics. Patient was advised to follow-up with PCP for regular paracentesis. Patient was hemodynamically stable at the time of discharge. Disposition: - TO HOME OR SELFCARE Time spent for discharge: 32 minutes - Discharge Diagnoses (1) Ascites Status: Acute Qualifiers: Ascites type: due to alcoholic cirrhosis Qualified Code(s): K70.31 - Alcoholic cirrhosis of liver with ascites (2) Liver cirrhosis Status: Acute Qualifiers: Hepatic cirrhosis type: alcoholic cirrhosis Ascites presence: with ascites Qualified Code(s): K70.31 - Alcoholic cirrhosis of liver with ascites (3) Volume overload Status: Acute Qualifiers: Hypervolemia type: unspecified Qualified Code(s): E87.70 - Fluid overload, unspecified Core Measure Documentation - Palliative Care Palliative Care/ Comfort Measures: Not Applicable - Core Measures Any of the following diagnoses?: none Exam - Physical Exam Narrative exam: Not in cardiopulmonary distress. The patient appeared well nourished and normally developed. Vital signs as documented. Head exam is unremarkable. No scleral icterus . Neck is without jugular venous distension, thyromegaly, or carotid bruits. Lungs are clear to auscultation. Cardiac exam reveals regular rate and Rhythm. First and second heart sounds normal. No murmurs, rubs or gallops. Abdominal exam reveals full abdomen, nontender. Extremities are nonedematous and both femoral and pedal pulses are normal. BUSINESS SERVICES SPECIALIST SALES: Alert and oriented 3. No focal weakness. - Constitutional Vitals: Temp Pulse Resp BP Pulse Ox 98.7 F 110 H 20 139/90 96 02/26/18 10:42 02/26/18 10:42 02/26/18 10:42 02/26/18 10:42 02/26/18 10:42 Plan Activity: no restrictions Weight Bearing Status: Full Weight Bearing Diet: low salt Additional Instructions: Follow at [facility] in 1-2 weeks Follow up with: PRIMARY CARE, [Primary Care Provider] - 3-5 Days Prescriptions: Levofloxacin [Levaquin TAB] 500 mg PO DAILY #6 tablet
[2018-02-26 17:55] VITALS: BP 115/78
== END 2018-02-26 20:15 | disposition home or self-care (01) | DRG 433 ==
LOC: ED 07:49 → 3A 18:22
PROVIDERS: ADMIT Internal Medicine; ATTEND Internal Medicine
PROC: 0W9G3ZZ Drainage of Peritoneal Cavity, Percutaneous Approach (ICD-10-PCS; principal; 2018-02-26)
DX: K70.31 Alcoholic cirrhosis of liver with ascites (principal); E87.1 Hypo-osmolality and hyponatremia; N39.0 Urinary tract infection, site not specified; K72.90 Hepatic failure, unspecified without coma; E87.70 Fluid overload, unspecified; I10 Essential (primary) hypertension; Z96.642 Presence of left artificial hip joint; Z72.89 Other problems related to lifestyle; Z79.899 Other long term (current) drug therapy; Z82.49 Family history of ischemic heart disease and other diseases of the circulatory system; Z87.891 Personal history of nicotine dependence
CPT/HCPCS: 36415; 49083; 80053; 80074; 81001; 82140; 83036; 85025; 85610; 85730; 86403; 87116; 88112; 88305; 89051; 96374; 96375; 99285; J2270; J2405; J3010

== ENCOUNTER 2018-03-10 20:49 | Inpatient (IN) | payer MEDICARE ==
[2018-03-10] MEDS ORDERED: NACL 0.9% 1000 ML 1,000 ML IV ONE (21:01)
[2018-03-10 21:48] LABS: Basophils # (Auto) 0.1 K/mm3 (0.0-0.1); Basophils % (Auto) 1.4 % (0.0-1.8); Eosinophils # (Auto) 0.2 K/mm3 (0.0-0.4); Eosinophils % (Auto) 3.6 % (0.0-4.3); Hematocrit 36.2 % (35.5-45.6); Hemoglobin 12.3 gm/dl (11.8-15.2); Lymphocytes # (Auto) 1.3 K/mm3 (1.2-5.4); Mean Corpuscular HGB Conc 34 % (32-34); Mean Corpuscular Hemoglobin 34 pg (28-32); Mean Corpuscular Volume 99 fl (84-94); Monocytes # (Auto) 0.8 K/mm3 (0.0-0.8); Monocytes % (Auto) 14.9 % (0.0-7.3); Platelet Count 249 K/mm3 (140-440); Red Blood Count 3.66 M/mm3 (3.65-5.03); Red Cell Distribution Width 14.7 % (13.2-15.2)
[2018-03-10 22:07] LABS: Alanine Aminotransferase 26 units/L (7-56); Albumin 2.3 g/dL (3.9-5); BUN/Creatinine Ratio 25; Bilirubin,Direct 0.4 mg/dL (0-0.2); Blood Urea Nitrogen 15 mg/dL (9-20); Calcium 8.1 mg/dL (8.4-10.2); Hemolysis Index 0; Lipase 80 units/L (13-60)
--- NOTE | 2018-03-10 23:35 | Emergency Department Report ---
HPI - General Chief Complaint: Abdominal Pain Time Seen by Provider: 03/10/18 22:56 - HPI HPI: 57-year-old male with history of hepatic failure from alcoholism. Presents to ED with increased swelling of his abdominal area, increased leg swelling, and pain around periumbilical area. Patient states he has had prior episode that required him to be admitted and had fluid drained some his belly. He has since stopped drinking. She denies any fever, no nausea or vomiting. He hasn't followed up outpatient with his caregivers. He states he eats a lot and drank a lot of fluids. He was not told to return for drainage of his abdominal area. ED Past Medical Hx - Past Medical History Hx Hypertension: Yes Additional medical history: LIVER FAILURE ALCOHOL ABUSE - Surgical History Additional Surgical History: hip replacement. - Social History Smoking Status: Unknown if ever smoked Substance Use Type: None - Medications Home Medications: Home Medications Medication Instructions Recorded Confirmed Last Taken Type Folic Acid [Folvite] 1 mg PO QDAY #30 tablet 01/15/18 02/26/18 Unknown Rx Lactulose [Cephulac] 20 gm PO Q6HR #30 oral.liqd 01/15/18 02/26/18 Unknown Rx Multivitamin Tab [Multiple Vitamin 1 each PO QDAY #30 tablet 01/15/18 02/26/18 Unknown Rx TAB (Theragran)] Sodium Chloride 1 gm PO BID #30 tablet 01/15/18 02/26/18 Unknown Rx Spironolactone [Aldactone] 100 mg PO BID #60 tablet 01/15/18 02/26/18 Unknown Rx Thiamine [Vitamin B-1] 100 mg PO QDAY #30 tablet 01/15/18 02/26/18 Unknown Rx Levofloxacin [Levaquin TAB] 500 mg PO DAILY #6 tablet 02/26/18 Unknown Rx ED Review of Systems ROS: Stated complaint: LIVER PAIN Other details as noted in HPI Comment: All other systems reviewed and negative Gastrointestinal: abdominal pain Hematological/Lymphatic: other (edema) Physical Exam - Physical Exam Vital Signs: Vital Signs 03/10/18 20:51 Temperature 97.3 F L Pulse Rate 99 H Respiratory 18 Rate Blood Pressure 149/97 O2 Sat by Pulse 100 Oximetry Physical Exam: GENERAL: Alert, well developed, in no acute distress. MENTAL STATUS: Judgment and insight appropriate for age. Oriented to time, place and person. No recent loss of memory. Affect appropriate for age. EYES: Pupils are equal and reactive to light. No hemorrhages or exudates. Extraocular muscles intact. EAR, NOSE AND THROAT: Oropharynx clean, mucous membranes moist. Ears and nose without masses, lesions or deformities. Tympanic membranes clear bilaterally. Trachea midline. No lymph node swelling or tenderness. RESPIRATORY: Clear to auscultation and percussion. No wheezing, rales or rhonchi. CARDIOVASCULAR: Heart sounds normal. No thrills. Regular rate and rhythm, no murmurs, rubs or gallops. GASTROINTESTINAL: Abdomen soft, distended with ascites. No pulsatile mass, no flank tenderness or suprapubic tenderness. No hepatosplenomegaly. NEUROLOGIC: Cranial nerves II-XII grossly intact. No focal neurological deficits. Deep tendon reflexes +2 bilaterally. Babinski negative. Moves all extremities spontaneously. Sensation intact bilaterally. SKIN: No rashes or lesions. No petechia. No purpura. Good turgor. No edema. MUSCULOSKELETAL: No cyanosis or clubbing. No gross deformities. Capable of free range of motion without pain or crepitation. No laxity, instability or dislocation. BONE: No misalignment, asymmetry, defect, tenderness or effusion. Capable of from of joint above and below bone. MUSCLE: No crepitation, defect, tenderness, masses or swellings. No loss of muscle tone or strength. LYMPHATIC: Palpation of neck reveals no swelling or tenderness of neck nodes. Palpation of groin reveals no swelling or tenderness of groin nodes. ED Course Vital Signs 03/10/18 20:51 Temperature 97.3 F L Pulse Rate 99 H Respiratory 18 Rate Blood Pressure 149/97 O2 Sat by Pulse 100 Oximetry ED Medical Decision Making - Lab Data Result diagrams: 03/10/18 21:26 03/10/18 21:26 Critical care attestation.: If time is entered above; I have spent that time in minutes in the direct care of this critically ill patient, excluding procedure time. ED Disposition Clinical Impression: Acute generalized abdominal pain Liver cirrhosis Qualifiers: Hepatic cirrhosis type: alcoholic cirrhosis Ascites presence: with ascites Qualified Code(s): K70.31 - Alcoholic cirrhosis of liver with ascites Volume overload Qualifiers: Hypervolemia type: other Qualified Code(s): E87.79 - Other fluid overload Disposition: OP ADMIT IP TO THIS HOSP Is pt being admited?: Yes Does the pt Need Aspirin: No Condition: Stable Referrals: PRIMARY CARE, [Primary Care Provider] - 3-5 Days
[2018-03-11] MEDS ORDERED: MORPHINE IV ONE (00:01)
[2018-03-11] MEDS ORDERED: ZOFRAN IV ONE (00:01)
[2018-03-11] MEDS ORDERED: MORPHINE ONE (00:08)
[2018-03-11] MEDS ORDERED: ZOFRAN ONE (00:08)
[2018-03-11] MEDS ORDERED: ZOFRAN IV PRN (00:18)
--- NOTE | 2018-03-11 03:18 | History and Physical Report ---
CHIEF COMPLAINT: Abdominal swelling. OTHER COMPLAINT: Include abdominal pain. HISTORY OF PRESENTING ILLNESS: The patient is a 57-year-old male with known history of cirrhosis of the liver from alcoholism who has had repeated ascites needing paracentesis in the past, who presents with abdominal swelling, going on for some days associated with abdominal pain, but no nausea, no vomiting. No history of fever or chills. The patient has not been following up with his outpatient caregiver. There is no history of shortness of breath. PAST MEDICAL HISTORY: Pertinent for cirrhosis of the liver, ascites, history of alcohol abuse in the past. Also the patient has past medical history of hypertension. PAST SURGICAL HISTORY: Pertinent for hip replacement and repeated abdominal paracentesis. FAMILY HISTORY: Family history is noncontributory. SOCIAL HISTORY: Not known. The patient never smoked. The patient used to drink alcohol, but does not drink recently. The patient does not use illicit drugs. MEDICATIONS: The patient is on the following medications: Folic acid 1 mg by mouth daily, lactulose 20gm by mouth every 6 hours, multivitamin one by mouth daily, sodium chloride 1 g by mouth twice daily, spironolactone or Aldactone 100 mg by mouth twice daily, thiamine tablets 100 mg by mouth daily, Levaquin tablet 500 mg by mouth daily. ALLERGIES: There are no known drug allergies. REVIEW OF SYSTEMS: CONSTITUTIONAL: There is no fever, no chills, no diaphoresis. HEENT: There is no headache or sore throat. CARDIOVASCULAR SYSTEM: There is no chest pain or orthopnea. RESPIRATORY SYSTEM: There is no shortness of breath or cough. GASTROINTESTINAL SYSTEM: Abdominal swelling noted. Abdominal pain, noted. No nausea, no vomiting, no diarrhea or constipation. NEUROLOGICAL SYSTEM: There is no numbness, no dizziness, no altered mental status. MUSCULOSKELETAL SYSTEM: There is no joint pain or swelling. DERMATOLOGICAL SYSTEM: There is no skin rash or itching. GENITOURINARY SYSTEM: There is no dysuria, hematuria or flank pain. Rest of system review is normal. PHYSICAL EXAMINATION: GENERAL: At the time of exam, the patient was found to be alert, oriented x 3 and not in acute distress. VITAL SIGNS: At the initial time of presentation, shows temperature of 97.3 degrees Fahrenheit, pulse of 99, respiration 18, blood pressure 149/97, O2 sat of 100% on room air. HEENT: Pupils are equal, round, reactive to light and accommodative. Extraocular muscles are intact. NECK: Neck is supple with no JVD or carotid bruit. CARDIOVASCULAR SYSTEM: Show first and second heart sounds which were heard normal with no gallops or murmurs. RESPIRATORY SYSTEM: Showed good air entry on both sides of the lungs with no abnormal breath sounds. GASTROINTESTINAL SYSTEM: Show abdomen to be grossly swollen and tense with prominent veins seen running on the abdominal wall with generalized tenderness with no guarding or rigidity was elicited. Bowel sound was hyperactive and no organomegaly was elicited. NEUROLOGICAL SYSTEM: Show no focal deficit. MUSCULOSKELETAL SYSTEM: Shows swelling in the lower extremities with pitting edema. DERMATOLOGICAL SYSTEM: Show no skin rash. GENITOURINARY SYSTEM: Show no costovertebral angle tenderness. PERTINENT LABORATORY DATA AND IMAGING STUDIES: The patient has the following lab test done. CBC showed normal white count, normal hemoglobin and normal hematocrit with CBC differential showing elevated monocyte count of 14.9%. The patient's chemistry showed low sodium of 135 with liver transaminases showing elevated AST of 68 and normal ALT of 26. Ammonia level was unremarkable. The patient's lipase level was high with a value of 80 and albumin level is low with a value of 2.3. DIAGNOSES: 1. Ascites. 2. Abdominal pain. 3. Liver cirrhosis. PLAN: 1. The patient will be admitted to medical floor. 2. The patient will be on IV morphine 2 mg every 4 hours as needed for pain and IV Zofran 4 mg every 8 hours for nausea and vomiting. 3. The patient will have ultrasound-guided abdominal paracentesis done in the morning by interventional radiologist. 4. The patient's home medications will be started as shown in the medication reconciliation section and this include lactulose 20 g q. 4 hours as well as Aldactone 100 mg by mouth twice daily. The patient's diet will be hepatic diet. DVT prophylaxis will be through sequential compressive device with heparin held because of paracentesis plan for morning. JOB# [id number] OCN/NTS BRIGIDA
[2018-03-11] MEDS: MORPHINE IV PRN ×4 (04:41→22:42)
[2018-03-11] MEDS: CEPHULAC PO SCH ×4 (07:00→17:56)
[2018-03-11] MEDS ORDERED: ALDACTONE PO SCH (10:00)
--- NOTE | 2018-03-11 10:00 | Event Note ---
Date: 03/11/18 GI consulted for cirrhosis. Patient currently off of the floor for paracentesis. Full consult to follow when patient is available.
[2018-03-11] MEDS: LEVAQUIN PO SCH (12:16)
[2018-03-11] MEDS: VITAMIN B-1 PO SCH (12:17)
[2018-03-11] MEDS: FOLVITE PO SCH (12:18)
[2018-03-11] MEDS: THERAGRAN Tab PO SCH (12:18)
--- NOTE | 2018-03-11 13:41 | Ultrasound Report ---
ULTRASOUND PARACENTESIS History: Ascites with abdominal pain. Description of procedure: Informed consent was obtained. Sterile technique was utilized. 1% lidocaine for skin anesthesia. Using ultrasound guidance, a 5 Vietnamese centesis needle was advanced into the left lower quadrant peritoneal space. There was spontaneous return of yellow cloudy fluid. 13 L of fluid was aspirated and discarded. No complications. Impression: Successful ultrasound-guided paracentesis.
--- NOTE | 2018-03-11 14:17 | Progress Note ---
Assessment and Plan Assessment and plan: History of cirrhosis of the liver with recurrent ascites -Status post paracentesis -Continue aldactone, lactulose and home levofloxacin -GI consulted History of alcohol abuse -Continue oral supplements History of hypertension -Stable Disposition: Discharge patient when medically stable History Interval history: Patient was seen post paracentesis. He complained of left-sided abdominal pain. Hospitalist Physical - Constitutional Vitals: Temp Pulse Resp BP Pulse Ox 98.9 F 91 H 18 138/76 98 03/11/18 05:46 03/11/18 05:43 03/11/18 05:46 03/11/18 05:46 03/11/18 05:43 General appearance: Present: no acute distress - EENT Eyes: Present: PERRL, EOM intact ENT: hearing intact, clear oral mucosa - Neck Neck: Present: supple - Respiratory Respiratory effort: normal Respiratory: bilateral: CTA - Cardiovascular Rhythm: regular Heart Sounds: Present: S1 & S2 - Extremities Extremity abnormal: edema (in BLE) - Abdominal General gastrointestinal: soft, tender (LT side), distended, normal bowel sounds , other (positive ascites) - Integumentary Integumentary: Present: clear, warm - Neurologic Neurologic: CNII-XII intact Results - Labs CBC & Chem 7: 03/10/18 21:26 03/10/18 21:26 Labs: Laboratory Last Values WBC 5.4 K/mm3 (4.5-11.0) 03/10/18 21:26 RBC 3.66 M/mm3 (3.65-5.03) 03/10/18 21:26 Hgb 12.3 gm/dl (11.8-15.2) 03/10/18 21:26 Hct 36.2 % (35.5-45.6) 03/10/18 21:26 MCV 99 fl (84-94) H 03/10/18 21:26 MCH 34 pg (28-32) H 03/10/18 21:26 MCHC 34 % (32-34) 03/10/18 21:26 RDW 14.7 % (13.2-15.2) 03/10/18 21:26 Plt Count 249 K/mm3 (140-440) 03/10/18 21:26 Lymph % (Auto) 25.0 % (13.4-35.0) 03/10/18 21:26 [place] % (Auto) 14.9 % (0.0-7.3) H 03/10/18 21:26 Eos % (Auto) 3.6 % (0.0-4.3) 03/10/18 21:26 Baso % (Auto) 1.4 % (0.0-1.8) 03/10/18 21:26 Lymph # 1.3 K/mm3 (1.2-5.4) 03/10/18 21:26 [place] # 0.8 K/mm3 (0.0-0.8) 03/10/18 21:26 Eos # 0.2 K/mm3 (0.0-0.4) 03/10/18 21:26 Baso # 0.1 K/mm3 (0.0-0.1) 03/10/18 21:26 Seg Neutrophils % 55.1 % (40.0-70.0) 03/10/18 21: Seg Neutrophils # 3.0 K/mm3 (1.8-7.7) 03/10/18 21:26 Sodium 135 mmol/L (137-145) L 03/10/18 21:26 Potassium 4.4 mmol/L (3.6-5.0) 03/10/18 21:26 Chloride 101.0 mmol/L (98-107) 03/10/18 21:26 Carbon Dioxide 23 mmol/L (22-30) 03/10/18 21:26 Anion Gap 15 mmol/L 03/10/18 21:26 BUN 15 mg/dL (9-20) 03/10/18 21:26 Creatinine 0.6 mg/dL (0.8-1.5) L 03/10/18 21:26 Estimated GFR > 60 ml/min 03/10/18 21:26 BUN/Creatinine Ratio 25 % 03/10/18 21:26 Glucose 93 mg/dL (75-100) 03/10/18 21:26 Calcium 8.1 mg/dL (8.4-10.2) L 03/10/18 21:26 Total Bilirubin 1.10 mg/dL (0.1-1.2) 03/10/18 21:26 Direct Bilirubin 0.4 mg/dL (0-0.2) H 03/10/18 21:26 Indirect Bilirubin 0.7 mg/dL 03/10/18 21:26 AST 68 units/L (5-40) H 03/10/18 21:26 ALT 26 units/L (7-56) 03/10/18 21:26 Alkaline Phosphatase 83 units/L (35-129) 03/10/18 21:26 Ammonia 19.0 umol/L (25-60) L 03/10/18 21:26 Total Protein 6.3 g/dL (6.3-8.2) 03/10/18 21:26 Albumin 2.3 g/dL (3.9-5) L 03/10/18 21:26 Albumin/Globulin Ratio 0.6 % 03/10/18 21:26 Lipase 80 units/L (13-60) H 03/10/18 21:26
--- NOTE | 2018-03-11 15:26 | Procedure Note ---
Date of procedure: 03/11/18 Pre-op diagnosis: ascites Post-op diagnosis: same Procedure: US paracentesis Findings: large ascites Anesthesia: local Surgeon: SOPHIA RICK Estimated blood loss: none Pathology: none Specimen disposition: discarded Condition: stable Disposition: floor
[2018-03-11 18:16] LABS: Bilirubin,Urine NEG (Negative); Blood,Urine NEG (Negative); Color,Urine Amber (Yellow); Mucus,Urine 3+ /HPF; Protein,Urine <15 mg/dL mg/dL (Negative)
[2018-03-12] MEDS: CEPHULAC PO SCH ×3 (01:31→13:41)
[2018-03-12] MEDS: MORPHINE IV PRN (04:53)
[2018-03-12 06:41] LABS: Alanine Aminotransferase 20 units/L (7-56); BUN/Creatinine Ratio 24; Blood Urea Nitrogen 12 mg/dL (9-20); Hemolysis Index 20
[2018-03-12 07:46] VITALS: BP 109/70
--- NOTE | 2018-03-12 09:26 | Gastroenterology Consultation ---
History of Present Illness - Reason for Consult Consult date: 03/12/18 cirrhosis, ascites Requesting physician: ALEJANDRA YAN - History of Present Illness Patient is a 57 y/o male with PMH of HTN, ETOH abuse (alcohol rehabilitation several times), and cirrhosis with recurrent ascites who presented to ED with c/ o abdominal swelling, leg swelling and periumbilical pain. s/p paracentesis yesterday. Last paracentesis 02/26/18 with no evidence of SBP. He is previously know to our service from a consult 01/2018 for similar symptoms wit outpatient follow up recommended, however patient has need non-compliant with follow up. This morning patient was sitting up in bed finishing breakfast w/o acute distress. Admits to some abd soreness at paracentesis site but no pain. Denies fever, CP, SOB, wt loss, N/V, jaundice, itching, signs of bleeding or LGI symptoms. States he has not had an alcohol in the last couple of months, since last admission. No hx of hepatitis B or C. No illicit drug use. No Fhx of liver disease. Past History Past Medical History: hypertension, other (cirrhosis, ascites) Past Surgical History: total hip replacement, Other Social history: single, alcohol abuse Family history: no significant family history Medications and Allergies Allergies Allergy/AdvReac Type Severity Reaction Status Date / Time No Known Allergies Allergy Verified 02/08/18 12:12 Home Medications Medication Instructions Recorded Confirmed Last Taken Type Folic Acid [Folvite] 1 mg PO QDAY #30 tablet 01/15/18 03/12/18 Unknown Rx Lactulose [Cephulac] 20 gm PO Q6HR #30 oral.liqd 01/15/18 03/12/18 Unknown Rx Multivitamin Tab [Multiple Vitamin 1 each PO QDAY #30 tablet 01/15/18 03/12/18 Unknown Rx TAB (Theragran)] Sodium Chloride 1 gm PO BID #30 tablet 01/15/18 03/12/18 Unknown Rx Spironolactone [Aldactone] 100 mg PO BID #60 tablet 01/15/18 03/12/18 Unknown Rx Thiamine [Vitamin B-1] 100 mg PO QDAY #30 tablet 01/15/18 03/12/18 Unknown Rx Levofloxacin [Levaquin TAB] 500 mg PO DAILY #6 tablet 02/26/18 03/12/18 Unknown Rx Active Meds: Active Medications Folic Acid (Folvite) 1 mg PO QDAY [facility] Last Admin: 03/11/18 12:18 Dose: 1 mg Furosemide (Lasix) 40 mg PO QDAY [facility] Lactulose (Cephulac) 20 gm PO Q6HR [facility] Last Admin: 03/12/18 05:58 Dose: Not Given Levofloxacin (Levaquin) 500 mg PO DAILY [facility] Stop: 03/16/18 10:59 Last Admin: 03/11/18 12:16 Dose: 500 mg Morphine Sulfate (Morphine) 2 mg IV Q4H PRN PRN Reason: Pain, Moderate (4-6) Last Admin: 03/12/18 04:53 Dose: 2 mg Multivitamins (Theragran Tab) 1 each PO QDAY [facility] Last Admin: 03/11/18 12:18 Dose: 1 each Ondansetron HCl (Zofran) 4 mg IV Q8H PRN PRN Reason: Nausea And Vomiting Spironolactone (Aldactone) 100 mg PO DAILY [facility] Thiamine HCl (Vitamin B-1) 100 mg PO QDAY [facility] Last Admin: 03/11/18 12:17 Dose: 100 mg Review of Systems - Review of Systems All systems: negative Gastrointestinal: abdominal pain Exam - Constitutional Vital Signs: Temp Pulse Resp BP Pulse Ox 98.0 F 84 18 109/70 99 03/12/18 06:24 03/12/18 06:24 03/12/18 06:24 03/12/18 06:24 03/12/18 06:24 General appearance: no acute distress - EENT Eyes: PERRL, EOM intact ENT: hearing intact - Respiratory Respiratory: bilateral: CTA (anterior) - Cardiovascular Rhythm: regular Heart Sounds: Present: S1 & S2 - Gastrointestinal General gastrointestinal: Present: soft, tender (mild Left sided ), distended ( slightly (ascites)), normal bowel sounds - Integumentary Integumentary: Present: warm, dry - Neurologic Neurological: alert and oriented x3 - Labs CBC & Chem 7: 03/10/18 21:26 03/12/18 05:41 Lab Results: Laboratory Results - last 24 hr 03/11/18 03/12/18 Unknown 05:41 Sodium 134 L Potassium 5.1 H Chloride 98.7 Carbon Dioxide 24 Anion Gap 16 BUN 12 Creatinine 0.5 L Estimated GFR > 60 BUN/Creatinine Ratio 24 Glucose 106 H Calcium 8.0 L Total Bilirubin 1.20 AST 53 H ALT 20 Alkaline Phosphatase 74 Total Protein 5.7 L Albumin 2.0 L Albumin/Globulin Ratio 0.5 Urine Color Sheri Urine Turbidity Clear Urine pH 5.0 Ur Specific [place] 1.023 Urine Protein <15 mg/dl Urine Glucose (UA) Neg Urine Ketones Neg Urine Blood Neg Urine Nitrite Neg Urine Bilirubin Neg Urine Urobilinogen 4.0 Ur Leukocyte Esterase Mod Urine WBC (Auto) 58.0 H Urine RBC (Auto) 8.0 U Epithel Cells (Auto) 3.0 Urine Mucus 3+ Assessment and Plan 1.cirrhosis 2.ascites 3.ETOH abuse -afebrile -WBC-WNL -AFP 2.2, hepatitis panel negative- 01/2018 -H/H WNL (12.3/36.2), plt 249 -AST 53, ALT 20, Alk phos 74, ammonia 19 -etiology- likely from alcohol (iron study results from 01/2018 likely 2/2 alcohol but recommendations for HFE gene as outpatient to r/o hemachromatosis) -s/p paracentesis- no evidence of SBP -clinically, patient is stable with mild soreness from paracentesis site but no significant abd pain, N/V, or signs of bleeding. Tolerating diet -continue diuretic therapy, low sodium diet, and fluid restriction -LVP PRN -alcohol abstinence discussed with patient -electrolyte management per primary team -continue supportive care -no further GI recommendations at this time, patient okay to be d/c from GI standpoint with outpatient clinic follow up -will sign off, please call if needed
[2018-03-12] MEDS ORDERED: LASIX PO SCH (10:00)
[2018-03-12] MEDS ORDERED: ALDACTONE PO SCH (10:00)
[2018-03-12] MEDS: VITAMIN B-1 PO SCH (10:52)
[2018-03-12] MEDS: FOLVITE PO SCH (10:53)
[2018-03-12] MEDS: LEVAQUIN PO SCH (10:53)
[2018-03-12] MEDS: THERAGRAN Tab PO SCH (10:53)
--- NOTE | 2018-03-12 11:13 | Discharge Summary ---
Providers - Providers Date of Admission: 03/10/18 23:27 Attending physician: MENG GUTIERREZ MD 03/11/18 05:40 Consult to Physician [CONS] Routine Comment: Consulting Provider: SAMI FAULKNER Physician Instructions: Reason For Exam: ASCITIS AND LIVER CIRRHOSIS Primary care physician: ELECTRICAL DESIGN TECHNICIAN Hospitalization Condition: Stable Disposition: DC-01 TO HOME OR SELFCARE Time spent for discharge: 35 mins Core Measure Documentation - Palliative Care Palliative Care/ Comfort Measures: Not Applicable Exam - Constitutional Vitals: Temp Pulse Resp BP Pulse Ox 98.0 F 84 18 109/70 99 03/12/18 06:24 03/12/18 06:24 03/12/18 06:24 03/12/18 06:24 03/12/18 06:24 Plan Activity: advance as tolerated, fall precautions Diet: low salt Special Instructions: record daily BP diary Additional Instructions: repeat BMP in 2 days with PCP Follow up with: ANDREY BECKER MD [Primary Care Provider] - 3-5 Days PANKAJ DAVILA MD [Staff Physician] - 14 Days Prescriptions: Furosemide [Lasix TAB] 40 mg PO QDAY #30 tablet
[2018-03-12] MEDS ORDERED: KIONEX PO ONE (12:00)
--- NOTE | 2018-03-12 12:32 | Query- Abnormal Electrolytes ---
Deamadhav Huff Carlos Date:____03/12/18 Oil Well Service Operator Helper/CDS:____clinton Phone#:__[phone] Exercise your independent professional judgment when responding to this query. Questions asked do not imply a particular answer is desired or expected. We greatly appreciate your clarification on this issue. Clinical Documentation States: Patient is a 57 y/o male with PMH of HTN, ETOH abuse (alcohol rehabilitation several times), and cirrhosis with recurrent ascites who presented to ED with c/ o abdominal swelling, leg swelling and periumbilical pain. s/p paracentesis yesterday. Last paracentesis 02/26/18 with no evidence of SBP. He is previously know to our service from a consult 01/2018 for similar symptoms wit outpatient follow up recommended, however patient has need non-compliant with follow up. This morning patient was sitting up in bed finishing breakfast w/o acute distress. Admits to some abd soreness at paracentesis site but no pain Assessment and Plan 1.cirrhosis 2.ascites 3.ETOH abuse Clinical Findings Show: 03/10/18 03/12/18 Sodium 135 134 Can you please clarify whether you mean? [ x] Hyponatremia [ ] Hypokalemia [ ] Hypocalcemia [ ] Hypomagnesemia [ ] Hypernatremia [ ] Hyperkalemia [ ] Hypercalcemia [ ] Hypermagnesemia [ ] Sodium deficiency [ ] Potassium deficiency [ ] Hypochloremia [ ] Sodium excess [ ] Potassium excess [ ] Hyperchloremia [ ] Sodium overload [ ] Potassium overload [ ] Hypophosphatemia [ ] Hyperphosphatemia Acidosis; [ ] Respiratory [ ] Metabolic Alkalosis; [ ] Respiratory [ ] Metabolic [ ] Other: [ ] Comment/Explanation: Present on Admission: [x ] Yes (Y) [ ] Clinically undeterminable (W) [ ]No(N) Please also document response in your Progress Notes and/or Discharge Summary and indicate if the condition was present on admission. BRIGIDA
--- NOTE | 2018-03-12 12:35 | Query- Nutrition ---
Dear Date: 03/12/18 Trade Sales Assistant/CDS:__clinton Phone#:____[phone] Exercise your independent professional judgment when responding to query. Questions asked do not imply a particular answer is desired or expected. We greatly appreciate your clarification on this issue. Clinical Documentation States: Patient is a 57 y/o male with PMH of HTN, ETOH abuse (alcohol rehabilitation several times), and cirrhosis with recurrent ascites who presented to ED with c/ o abdominal swelling, leg swelling and periumbilical pain. s/p paracentesis yesterday. Last paracentesis 02/26/18 with no evidence of SBP. He is previously know to our service from a consult 01/2018 for similar symptoms wit outpatient follow up recommended, however patient has need non-compliant with follow up. This morning patient was sitting up in bed finishing breakfast w/o acute distress. Admits to some abd soreness at paracentesis site but no pain. Assessment and Plan 1.cirrhosis 2.ascites 3.ETOH abuse Clinical Findings Show: 03/10/18 03/12/18 Albumin 2.3 2.0 Please select the most appropriate option 3 [ ] Mild Malnutrition [ ] Moderate Malnutrition [x] Moderate - Severe Malnutrition [ ] Severe Malnutrition Serum Albumin 2.8 to 3.4 g/dl or Pre-albumin 5 to 17 mg/dl1,2 Inadequate nutritional intake1,2,3,4 NPO > 5 days Weight loss: 5% in 1 month or 7.5% in 3 months or 10% in 6 months1, 3,4 BMI 16 to 18.4 or Weight <90% of ideal body weight1,2,3,4 Serum Albumin < 2.8 g/ dl1,2 Lymphocytes < 1500/ L2 Inadequate nutritional intake3, high stress e.g. major trauma, sepsis,pancreatitis, [place] etc. Decubitus ulcers1,2, , skin breakdown2, easy hair pluckability2 Weight <80% standard for height2 Triceps skin fold <3 mm2 Mid-arm muscle circumference <15 cm2 Creatinine-height index <60% standard2 [ ] Cachexia [ ] Emaciated w/Malnutrition [ ] Other: [ ] Unable to determine [ ] Comment/Explanation: Present on Admission: [ x] Yes (Y) [ ] Clinically undeterminable (W) [ ] No (N) Please also document response in your Progress Notes and/or Discharge Summary and indicate if the condition was present on admission. MTDD
== END 2018-03-12 15:40 | disposition home or self-care (01) | DRG 432 ==
LOC: ED 20:49 → 4A 23:27 → 3A 03-11 00:22
PROVIDERS: ADMIT Internal Medicine; ATTEND Internal Medicine
PROC: 0W9G3ZZ Drainage of Peritoneal Cavity, Percutaneous Approach (ICD-10-PCS; principal; 2018-03-11)
DX: K70.31 Alcoholic cirrhosis of liver with ascites (principal); E43 Unspecified severe protein-calorie malnutrition; E87.1 Hypo-osmolality and hyponatremia; I10 Essential (primary) hypertension; Z96.649 Presence of unspecified artificial hip joint; F10.10 Alcohol abuse, uncomplicated; E87.70 Fluid overload, unspecified; Z68.38 Body mass index [BMI] 38.0-38.9, adult; Z91.14 Patient's other noncompliance with medication regimen; Z79.899 Other long term (current) drug therapy; Z71.41 Alcohol abuse counseling and surveillance of alcoholic
CPT/HCPCS: 36415; 49083; 80053; 80074; 81001; 82140; 83690; 85025; 96374; 96375; J2270; J2405

== ENCOUNTER 2018-04-25 08:25 | Inpatient (IN) | payer MEDICARE ==
--- NOTE | 2018-04-25 10:56 | Emergency Department Report ---
Blank Doc - Documentation Documentation: Patient is a 57-year-old male with a history of alcoholic cirrhosis with frequent ascites who is presenting with shortness of breath and abdominal distention. Patient states the last time he had to have the ascitic fluid drained with approximately 2 weeks ago. Patient here because he states he is very uncomfortable with abdominal distention and pain. Focused physical exam patient is alert and oriented 3 does have extensive abdominal distention from ascites.. Laboratory studies of the drawn and the patient will be the potential candidate for objects to have his ascites fluid drained
[2018-04-25 11:19] LABS: Eosinophils # (Auto) 0.2 K/mm3 (0.0-0.4); Eosinophils % (Auto) 3.6 % (0.0-4.3); Hematocrit 32.3 % (35.5-45.6); Hemoglobin 11.1 gm/dl (11.8-15.2); Lymphocytes # (Auto) 1.3 K/mm3 (1.2-5.4); Lymphocytes % (Auto) 28.8 % (13.4-35.0); Mean Corpuscular HGB Conc 34 % (32-34); Mean Corpuscular Hemoglobin 32 pg (28-32); Mean Corpuscular Volume 94 fl (84-94); Monocytes # (Auto) 0.6 K/mm3 (0.0-0.8); Platelet Count 202 K/mm3 (140-440); Red Blood Count 3.43 M/mm3 (3.65-5.03); Red Cell Distribution Width 13.8 % (13.2-15.2)
[2018-04-25 11:23] LABS: INR 1.1 (0.87-1.13)
[2018-04-25 11:24] LABS: Partial Thromboplastin Time 35.8 Sec. (24.2-36.6)
[2018-04-25 11:31] LABS: BUN/Creatinine Ratio 17; Blood Urea Nitrogen 10 mg/dL (9-20); Calcium 8.2 mg/dL (8.4-10.2); Hemolysis Index 3
[2018-04-25] MEDS ORDERED: K-DUR PO ONE (11:42)
--- NOTE | 2018-04-25 12:08 | Emergency Department Report ---
ED Shortness of Breath HPI - General Chief Complaint: Dyspnea/Respdistress Stated Complaint: LIVER/LEG PAIN Time Seen by Provider: 04/25/18 10:44 Source: patient Mode of arrival: Wheelchair Limitations: No Limitations - History of Present Illness Initial Comments: Patient is a 57-year-old male with a history of alcoholic cirrhosis with frequent ascites who is presenting with shortness of breath and abdominal distention. Patient states the last time he had to have the ascitic fluid drained with approximately 2 weeks ago. Patient here because he states he is very uncomfortable with abdominal distention and pain. Focused physical exam patient is alert and oriented 3 does have extensive abdominal distention from ascites.. Laboratory studies of the drawn and the patient will be the potential candidate for objects to have his ascites fluid drained - Related Data Previous Rx's Medication Instructions Recorded Last Taken Type Multivitamin Tab [Multiple Vitamin 1 each PO QDAY #30 tablet 01/15/18 Unknown Rx TAB (Theragran)] Thiamine [Vitamin B-1] 100 mg PO QDAY #30 tablet 01/15/18 Unknown Rx Furosemide [Lasix TAB] 40 mg PO QDAY #30 tablet 04/06/18 Unknown Rx Spironolactone [Aldactone] 100 mg PO QDAY #30 tablet 04/06/18 Unknown Rx levoFLOXacin [Levaquin TAB] 500 mg PO QDAY #5 tablet 04/06/18 Unknown Rx Allergies Allergy/AdvReac Type Severity Reaction Status Date / Time No Known Allergies Allergy Verified 02/08/18 12:12 ED Review of Systems ROS: Stated complaint: LIVER/LEG PAIN Other details as noted in HPI Comment: All other systems reviewed and negative ED Past Medical Hx - Past Medical History Previous Medical History?: Yes Hx Hypertension: No Hx Congestive Heart Failure: No Hx Diabetes: No Hx Liver Disease: Yes Hx Arthritis: Yes Hx Asthma: No Hx COPD: No Hx HIV: No Additional medical history: LIVER FAILURE ALCOHOL ABUSE - Surgical History Past Surgical History?: Yes Additional Surgical History: hip replacement. - Social History Smoking Status: Never Smoker Substance Use Type: None - Medications Home Medications: Home Medications Medication Instructions Recorded Confirmed Last Taken Type Multivitamin Tab [Multiple Vitamin 1 each PO QDAY #30 tablet 18 04/04/18 Unknown Rx TAB (Theragran)] Thiamine [Vitamin B-1] 100 mg PO QDAY #30 tablet 01/15/18 04/04/18 Unknown Rx Furosemide [Lasix TAB] 40 mg PO QDAY #30 tablet 04/06/18 Unknown Rx Spironolactone [Aldactone] 100 mg PO QDAY #30 tablet 04/06/18 Unknown Rx levoFLOXacin [Levaquin TAB] 500 mg PO QDAY #5 tablet 04/06/18 Unknown Rx ED Physical Exam - General Limitations: No Limitations General appearance: alert, in no apparent distress, cachectic - Head Head exam: Present: atraumatic, normocephalic - Eye Eye exam: Present: normal appearance - ENT ENT exam: Present: mucous membranes moist - Neck Neck exam: Present: normal inspection - Respiratory Respiratory exam: Present: normal lung sounds bilaterally. Absent: respiratory distress - Cardiovascular Cardiovascular Exam: Present: regular rate, normal rhythm. Absent: systolic murmur, diastolic murmur, rubs, gallop - GI/Abdominal GI/Abdominal exam: Present: soft, distended, tenderness, normal bowel sounds. Absent: guarding, rebound, rigid - Rectal Rectal exam: Present: deferred - Extremities Exam Extremities exam: Present: normal inspection - Back Exam Back exam: Present: normal inspection - Neurological Exam Neurological exam: Present: alert, oriented X3 - Psychiatric Psychiatric exam: Present: normal affect, normal mood - Skin Skin exam: Present: warm, dry, intact, normal color. Absent: rash ED Course Vital Signs 04/25/18 09:22 Temperature 98.9 F Pulse Rate 95 H Respiratory 22 Rate Blood Pressure 128/73 O2 Sat by Pulse 99 Oximetry ED Medical Decision Making - Lab Data Result diagrams: 04/25/18 10:59 04/25/18 10:59 - Medical Decision Making Patient is a 57-year-old male with alcoholic liver failure. Patient has large amount of ascites that will need to be drained by interventional radiology. Patient also has hypo-K which was replaced here in the emergency department. Patient be admitted to Dr. Guzman with the hospitalist service. Critical care attestation.: If time is entered above; I have spent that time in minutes in the direct care of this critically ill patient, excluding procedure time. ED Disposition Clinical Impression: Alcoholic hepatic failure without coma, ETOH abuse, Hypokalemia Ascites Qualifiers: Ascites type: due to alcoholic hepatitis Qualified Code(s): K70.11 - Alcoholic hepatitis with ascites Liver cirrhosis Qualifiers: Hepatic cirrhosis type: alcoholic cirrhosis Ascites presence: with ascites Qualified Code(s): K70.31 - Alcoholic cirrhosis of liver with ascites Volume overload Qualifiers: Hypervolemia type: unspecified Qualified Code(s): E87.70 - Fluid overload, unspecified Disposition: OP ADMIT IP TO THIS HOSP Is pt being admited?: Yes Does the pt Need Aspirin: No Condition: Stable Referrals: PRIMARY CARE, [Primary Care Provider] - 3-5 Days Time of Disposition: 12:08
--- NOTE | 2018-04-25 12:44 | History and Physical Report ---
History of Present Illness Chief complaint: My stomach has gotten big, and i cant breathe History of present illness: 57 YO Male with Liver Failure, Ascites, OA, Cirrhosis presents to ED for evaluation. Pt states that he has experienced shortness of breath over the past week, with worsening symptoms over the past 3 days. Pt also acknowledges feeling bloated in his abdomen. Pt states that he underwent a therapeutic paracentesis 2 weeks ago. Pt denies fever, chills, CP, Palpitations, Abdominal pain, trauma, productive cough, or recent ill contacts. Pt seen and evaluated in ED and found to have Hepatic Failure, Ascites, and Respiratory Failure. Pt admitted to medical floor. IR consulted in ED for paracentesis. Past History Past Medical History: arthritis, liver disease Past Surgical History: total hip replacement Social history: single. denies: smoking, alcohol abuse, prescription drug abuse Family history: no significant family history (reviewed) Medications and Allergies Allergies Allergy/AdvReac Type Severity Reaction Status Date / Time No Known Allergies Allergy Verified 02/08/18 12:12 Home Medications Medication Instructions Recorded Confirmed Last Taken Type Furosemide [Lasix TAB] 40 mg PO QDAY #30 tablet 04/06/18 04/25/18 Unknown Rx Aspirin [Aspirin TAB] 325 mg PO QDAY 04/25/18 04/25/18 Unknown History Review of Systems Constitutional: weight gain, no weight loss, no fever, no chills, no sweats Ears, nose, mouth and throat: no ear pain, no ear discharge, no tinnitis, no decreased hearing, no nose pain, no nasal congestion, no nasal discharge Cardiovascular: no chest pain, no orthopnea, no palpitations, no rapid/ irregular heart beat Respiratory: shortness of breath, no cough, no cough with sputum, no excessive sputum, no hemoptysis Gastrointestinal: other (bloating), no abdominal pain, no nausea, no vomiting Genitourinary Male: no hematuria, no flank pain, no discharge, no urinary frequency Rectal: no pain, no incontinence, no bleeding Musculoskeletal: no neck stiffness, no neck pain, no shooting arm pain, no arm numbness/tingling Integumentary: no rash, no pruritis, no redness, no sores, no wounds, no jaundice Neurological: no transient paralysis, no paralysis, no weakness, no parathesias , no numbness, no tingling, no seizures, no syncope Exam - Constitutional Vitals: Temp Pulse Resp BP Pulse Ox 98.9 F 95 H 22 128/73 99 04/25/18 09:22 04/25/18 09:22 04/25/18 09:22 04/25/18 09:22 04/25/18 09:22 General appearance: Present: mild distress, disheveled - EENT Eyes: Present: PERRL ENT: hearing intact, clear oral mucosa - Neck Neck: Present: supple, normal ROM - Respiratory Respiratory effort: normal Respiratory: bilateral: diminished, rhonchi - Cardiovascular Heart Sounds: Present: S1 & S2. Absent: rub, click - Extremities Extremities: pulses symmetrical, No edema Extremity abnormal: edema Peripheral Pulses: within normal limits - Abdominal General gastrointestinal: Present: soft, non-tender, non-distended, normal bowel sounds Male genitourinary: Present: normal - Integumentary Integumentary: Present: clear, warm, dry - Musculoskeletal Musculoskeletal: gait normal, strength equal bilaterally - Psychiatric Psychiatric: appropriate mood/affect, intact judgment & insight - Neurologic Neurologic: CNII-XII intact, moves all extremities Results - Labs CBC & Chem 7: 04/25/18 10:59 04/25/18 10:59 Labs: Abnormal lab results 04/25/18 04/25/18 Range/Units 10:59 10:59 RBC 3.43 L (3.65-5.03) M/mm3 Hgb 11.1 L (11.8-15.2) gm/dl Hct 32.3 L (35.5-45.6) % [place] % (Auto) 14.0 H (0.0-7.3) % Potassium 2.8 L* (3.6-5.0) mmol/L Chloride 97.8 L (98-107) mmol/L Creatinine 0.6 L (0.8-1.5) mg/dL Glucose 119 H (75-100) mg/dL Calcium 8.2 L (8.4-10.2) mg/dL Assessment and Plan - Patient Problems (1) Alcoholic hepatic failure without coma Current Visit: Yes Status: Acute Plan to address problem: Supportive care, LFT, (2) Ascites Current Visit: Yes Status: Acute Qualifiers: Ascites type: due to alcoholic hepatitis Qualified Code(s): K70.11 - Alcoholic hepatitis with ascites Plan to address problem: IR consulted for therapeutic paracentesis. (3) Acute respiratory failure Current Visit: No Status: Acute Qualifiers: Respiratory failure complication: hypoxia Qualified Code(s): J96.01 - Acute respiratory failure with hypoxia Plan to address problem: Supplemental oxygen, nebulizer therapy, Chest x ray, NIPPV as clinically indicated, therapeutic paracentesis. (4) DVT prophylaxis Current Visit: No Status: Acute Plan to address problem: SCD to ble while in bed.
[2018-04-25] MEDS ORDERED: SODIUM CHLORIDE FLUSH SYRINGE 10 ML IV PRN (12:45)
[2018-04-25] MEDS ORDERED: ZOFRAN IV PRN (12:45)
[2018-04-25] MEDS ORDERED: TYLENOL PO PRN (12:45)
[2018-04-25] MEDS ORDERED: PROVENTIL IH PRN (12:45)
[2018-04-25] MEDS: PERCOCET 5/325 PO PRN ×2 (16:46→23:41)
[2018-04-25] MEDS: SODIUM CHLORIDE FLUSH SYRINGE 10 ML IV SCH (23:42)
[2018-04-26] MEDS ORDERED: XYLOCAINE 1% 20 mL ONE (09:14)
[2018-04-26] MEDS ORDERED: XYLOCAINE 1%/ EPI 1:100,000 INFILTRATI ONE (10:31)
--- NOTE | 2018-04-26 10:31 | Procedure Note ---
Date of procedure: 04/26/18 Pre-op diagnosis: ascites Post-op diagnosis: same Procedure: US paracentesis Findings: large ascites Anesthesia: local Surgeon: SOPHIA RICK Estimated blood loss: none Pathology: list (120cc of slightly cloudy yellow fluid) Specimen disposition: to lab Condition: stable Disposition: floor
--- NOTE | 2018-04-26 12:00 | Ultrasound Report ---
ULTRASOUND PARACENTESIS History: Ascites Description of procedure: Informed consent was obtained. Sterile technique was utilized. 1% lidocaine for skin anesthesia. Using ultrasound guidance, a 5 [place] centesis needle was advanced into the right lower quadrant peritoneal space. There was spontaneous return of yellow, slightly cloudy fluid. 11.3 L of fluid was aspirated. 120 cc of fluid was sent to lab for analysis. No complications. Impression: Successful ultrasound-guided paracentesis.
[2018-04-26 12:14] LABS: Total Cells Counted 100 /mm3
[2018-04-26] MEDS: SODIUM CHLORIDE FLUSH SYRINGE 10 ML IV SCH ×2 (15:03→20:50)
[2018-04-26] MEDS: PERCOCET 5/325 PO PRN ×2 (15:06→20:49)
[2018-04-27] MEDS: SODIUM CHLORIDE FLUSH SYRINGE 10 ML IV SCH ×3 (01:41→22:07)
[2018-04-27] MEDS: PERCOCET 5/325 PO PRN ×3 (02:51→17:40)
--- NOTE | 2018-04-27 23:58 | Progress Note ---
Assessment and Plan Patient Problems (1) Alcoholic hepatic failure without coma Current Visit: Yes Status: Acute Plan to address problem: Supportive care, LFT, (2) Ascites Current Visit: Yes Status: Acute Qualifiers: Ascites type: due to alcoholic hepatitis Qualified Code(s): K70.11 - Alcoholic hepatitis with ascites Plan to address problem: Patient had Paracentesis Sx better. (3) Acute respiratory failure Current Visit: No Status: Acute Qualifiers: Respiratory failure complication: hypoxia Qualified Code(s): J96.01 - Acute respiratory failure with hypoxia Plan to address problem: Supplemental oxygen, nebulizer therapy, Chest x ray, NIPPV as clinically indicated, therapeutic paracentesis. (4) DVT prophylaxis Current Visit: No Status: Acute Plan to address problem: SCD to ble while in bed. (5) Hypokalemia Supplemented agressively Recheck labs and ammonia level Subjective Date of service: 04/27/18 Principal diagnosis: Hepatic failure,Hepatic failure Interval history: S/P Paracentesis- Doing well patient's SOB has improved Objective - Constitutional Vitals: Vital Signs - 12hr 04/27/18 18:39 Temperature 98.4 F Pulse Rate 98 H Respiratory 20 Rate Blood Pressure 108/70 O2 Sat by Pulse 99 Oximetry General appearance: Present: mild distress, well-nourished - EENT Eyes: PERRL, EOM intact ENT: hearing intact, clear oral mucosa Ears: bilateral: normal - Neck Neck: supple, normal ROM - Respiratory Respiratory effort: normal Respiratory: bilateral: CTA - Breasts Breasts: normal - Cardiovascular Rhythm: regular Heart Sounds: Present: S1 & S2. Absent: gallop, rub Extremities: pulses intact, No edema, normal color, Full ROM - Gastrointestinal General gastrointestinal: Present: soft, non-tender, distended, normal bowel sounds, other (C/w Ascites) Rectal Exam: deferred - Genitourinary Male genitourinary: normal - Integumentary Integumentary: clear, warm, dry - Musculoskeletal Musculoskeletal: 1, strength equal bilaterally - Neurologic Neurologic: moves all extremities - Psychiatric Psychiatric: memory intact, appropriate mood/affect, intact judgment & insight - Labs CBC & Chem 7: 04/25/18 10:59 04/25/18 10:59
--- NOTE | 2018-04-27 23:58 | Progress Note ---
Assessment and Plan Patient Problems (1) Alcoholic hepatic failure without coma Current Visit: Yes Status: Acute Plan to address problem: Supportive care, LFT, (2) Ascites Current Visit: Yes Status: Acute Qualifiers: Ascites type: due to alcoholic hepatitis Qualified Code(s): K70.11 - Alcoholic hepatitis with ascites Plan to address problem Paracentesis- done today. Symptomatically better (3) Acute respiratory failure Current Visit: No Status: Acute Qualifiers: Respiratory failure complication: hypoxia Qualified Code(s): J96.01 - Acute respiratory failure with hypoxia Plan to address problem: Supplemental oxygen, nebulizer therapy, Chest x ray, NIPPV as clinically indicated, therapeutic paracentesis. (4) Hypokalemia Supplemented (4) DVT prophylaxis Current Visit: No Status: Acute Plan to address problem: SCD to ble while in bed. Subjective Date of service: 04/26/18 Principal diagnosis: Ascites and Hepatic failure Interval history: S/P Paracentesis- Doing well patient's SOB has improved Objective - Constitutional Vitals: Vital Signs - 12hr 04/27/18 18:39 Temperature 98.4 F Pulse Rate 98 H Respiratory 20 Rate Blood Pressure 108/70 O2 Sat by Pulse 99 Oximetry General appearance: Present: no acute distress, well-nourished - EENT Eyes: PERRL, EOM intact ENT: hearing intact, clear oral mucosa Ears: bilateral: normal - Neck Neck: supple, normal ROM - Respiratory Respiratory effort: normal Respiratory: bilateral: CTA - Breasts Breasts: normal - Cardiovascular Rhythm: regular Heart Sounds: Present: S1 & S2. Absent: gallop, rub Extremities: pulses intact, No edema, normal color, Full ROM - Gastrointestinal General gastrointestinal: Present: soft, non-tender, distended, normal bowel sounds - Genitourinary Male genitourinary: normal - Integumentary Integumentary: clear, warm, dry - Musculoskeletal Musculoskeletal: 1, strength equal bilaterally - Neurologic Neurologic: moves all extremities - Psychiatric Psychiatric: memory intact, appropriate mood/affect, intact judgment & insight - Labs CBC & Chem 7: 04/25/18 10:59 04/25/18 10:59
[2018-04-28] MEDS ORDERED: K-DUR PO ONE
[2018-04-28] MEDS: PERCOCET 5/325 PO PRN ×3 (00:12→21:40)
[2018-04-28 08:05] LABS: Basophils # (Auto) 0.1 K/mm3 (0.0-0.1); Eosinophils # (Auto) 0.3 K/mm3 (0.0-0.4); Eosinophils % (Auto) 5.4 % (0.0-4.3); Hematocrit 37.5 % (35.5-45.6); Hemoglobin 12.5 gm/dl (11.8-15.2); Lymphocytes % (Auto) 33.8 % (13.4-35.0); Mean Corpuscular HGB Conc 33 % (32-34); Mean Corpuscular Hemoglobin 32 pg (28-32); Mean Corpuscular Volume 95 fl (84-94); Monocytes # (Auto) 0.7 K/mm3 (0.0-0.8); Monocytes % (Auto) 11.4 % (0.0-7.3); Platelet Count 229 K/mm3 (140-440); Red Blood Count 3.94 M/mm3 (3.65-5.03); Red Cell Distribution Width 14.3 % (13.2-15.2)
[2018-04-28 08:18] LABS: Alanine Aminotransferase 13 units/L (7-56); Albumin 2.1 g/dL (3.9-5); BUN/Creatinine Ratio 14; Blood Urea Nitrogen 7 mg/dL (9-20); Calcium 8.4 mg/dL (8.4-10.2); Hemolysis Index 13
--- NOTE | 2018-04-28 09:15 | Progress Note ---
Assessment and Plan Assessment and plan: --Cirrhosis liver; secondary to chronic alcohol use Extensive evaluation in the past by GI Continue supportive care --Ascites; history of recurrent paracentesis in the past Large volume paracentesis on 04/26/2018, removed 11.3. Peroneal fluid Fluid analysis negative for SBP, Continue supportive care --History of chronic alcohol use; Patient reports he quit alcohol intake a few months ago No agitation and tremulousness, no evidence of alcohol because --History of Hepatic encephalopathy; ammonia levels within normal limits During this admission --Severe mal nutrition/ Hypoalbuminemia; nutrition consult/supportive care --Hypokalemia; corrected, closely monitor electrolytes --DVT prophylaxis; SCD, Lovenox Closely monitor the patient and adjust management as needed Possible discharge in 1-2 days if stable Plan of care reviewed with the patient and his Nurse History Interval history: Patient seen and examined medical records reviewed No new events reported by nursing staff Patient is alert and oriented 3 Vital signs reviewed Hospitalist Physical - Constitutional Vitals: Temp Pulse Resp BP Pulse Ox 98.2 F 86 16 107/68 97 04/27/18 23:57 04/27/18 23:57 04/27/18 23:57 04/27/18 23:57 04/27/18 23:57 General appearance: Present: no acute distress, well-nourished - EENT Eyes: Present: PERRL, EOM intact - Neck Neck: Present: supple, normal ROM - Respiratory Respiratory effort: normal Respiratory: bilateral: diminished, rhonchi, negative: rales, wheezing - Cardiovascular Rhythm: regular Heart Sounds: Present: S1 & S2 - Extremities Extremities: no ischemia, No edema - Abdominal General gastrointestinal: soft, non-tender, distended, normal bowel sounds, other (ascites) - Integumentary Integumentary: Present: clear, warm - Psychiatric Psychiatric: appropriate mood/affect, cooperative - Neurologic Neurologic: CNII-XII intact, moves all extremities Results - Labs CBC & Chem 7: 04/28/18 07:25 04/28/18 07:25 Labs: Laboratory Last Values WBC 6.0 K/mm3 (4.5-11.0) 04/28/18 07:25 RBC 3.94 M/mm3 (3.65-5.03) 04/28/18 07:25 Hgb 12.5 gm/dl (11.8-15.2) 04/28/18 07:25 Hct 37.5 % (35.5-45.6) 04/28/18 07:25 MCV 95 fl (84-94) H 04/28/18 07:25 MCH 32 pg (28-32) 04/28/18 07:25 MCHC 33 % (32-34) 04/28/18 07:25 RDW 14.3 % (13.2-15.2) 04/28/18 07:25 Plt Count 229 K/mm3 (140-440) 04/28/18 07:25 Lymph % (Auto) 33.8 % (13.4-35.0) 04/28/18 07:25 [place] % (Auto) 11.4 % (0.0-7.3) H 04/28/18 07:25 Eos % (Auto) 5.4 % (0.0-4.3) H 04/28/18 07:25 Baso % (Auto) 1.0 % (0.0-1.8) 04/28/18 07:25 Lymph # 2.0 K/mm3 (1.2-5.4) 04/28/18 07:25 [place] # 0.7 K/mm3 (0.0-0.8) 04/28/18 07:25 Eos # 0.3 K/mm3 (0.0-0.4) 04/28/18 07:25 Baso # 0.1 K/mm3 (0.0-0.1) 04/28/18 07:25 Seg Neutrophils % 48.4 % (40.0-70.0) 04/28/18 07:25 Seg Neutrophils # 2.9 K/mm3 (1.8-7.7) 04/28/18 07:25 PT 14.7 Sec. (12.2-14.9) 04/25/18 10:59 INR 1.10 (0.87-1.13) 04/25/18 10:59 APTT 35.8 Sec. (24.2-36.6) 04/25/18 10:59 Sodium 136 mmol/L (137-145) L 04/28/18 07:25 Potassium 3.9 mmol/L (3.6-5.0) D 04/28/18 07:25 Chloride 98.9 mmol/L (98-107) 04/28/18 07:25 Carbon Dioxide 28 mmol/L (22-30) 04/28/18 07:25 Anion Gap 13 mmol/L 04/28/18 07:25 BUN 7 mg/dL (9-20) L 04/28/18 07:25 Creatinine 0.5 mg/dL (0.8-1.5) L 04/28/18 07:25 Estimated GFR > 60 ml/min 04/28/18 07:25 BUN/Creatinine Ratio 14 % 04/28/18 07:25 Glucose 99 mg/dL (75-100) 04/28/18 07:25 Calcium 8.4 mg/dL (8.4-10.2) 04/28/18 07:25 Total Bilirubin 0.90 mg/dL (0.1-1.2) 04/28/18 07:25 AST 44 units/L (5-40) H 04/28/18 07:25 ALT 13 units/L (7-56) 04/28/18 07:25 Alkaline Phosphatase 81 units/L (35-129) 04/28/18 07:25 Ammonia 43.0 umol/L (25-60) 04/28/18 01:00 Total Protein 6.5 g/dL (6.3-8.2) 04/28/18 07:25 Albumin 2.1 g/dL (3.9-5) L 04/28/18 07:25 Albumin/Globulin Ratio 0.5 % 04/28/18 07:25 Fluid Type Ascitic 04/26/18 08:30 Fluid Color Yellow 04/26/18 08:30 Fluid Appearance Cloudy 04/26/18 08:30 Fluid WBC 28 /mm3 04/26/18 08:30 Fluid RBC 158 /mm3 04/26/18 08:30 Fluid Seg Neutrophils 1.0 % 04/26/18 08:30 Fluid Lymphocytes 87.0 % 04/26/18 08:30 Fluid Reactive Lymphs 0 % 04/26/18 08:30 Fluid Monocytes 12.0 % 04/26/18 08:30 Fluid Eosinophils 0 % 04/26/18 08:30 Fluid Basophils 0 % 04/26/18 08:30
[2018-04-28] MEDS: MORPHINE IV PRN (17:09)
[2018-04-28] MEDS: SODIUM CHLORIDE FLUSH SYRINGE 10 ML IV SCH ×2 (17:10→22:58)
[2018-04-29] MEDS: MORPHINE IV PRN ×2 (01:40→10:29)
[2018-04-29] MEDS: PERCOCET 5/325 PO PRN ×2 (06:40→12:58)
[2018-04-29 07:19] LABS: LDH,Body Fluid 93; Total Protein,Body Fluid < 3.0 (15.0-45.0)
[2018-04-29] MEDS: SODIUM CHLORIDE FLUSH SYRINGE 10 ML IV SCH (10:32)
[2018-04-29 13:48] VITALS: BP 119/72
--- NOTE | 2018-04-29 15:38 | Discharge Summary ---
Providers - Providers Date of Admission: 04/25/18 12:45 Date of discharge: 04/29/18 Attending physician: ABBY BREAUX 04/25/18 12:44 Consult to Interventional Radiology [CONS] Routine Consulting Provider: JOEY GALARZA Reason For Exam: therapeutic paracentesis Place consult to:: DR. GARCÍA Notified:: DR. GARCÍA Phone number called:: IN HOUSE Was contact made?: Yes If yes, spoke with:: DR. GARCÍA Time called:: 14:57 04/25/18 16:50 Consult to Wound/ET Nurse [CONS] Routine Reason For Exam: wound eval Primary care physician: [employer] Hospitalization Condition: Stable Disposition: DC-01 TO HOME OR SELFCARE Time spent for discharge: 32 min Core Measure Documentation - Palliative Care Palliative Care/ Comfort Measures: Not Applicable - Core Measures Any of the following diagnoses?: none Exam - Constitutional Vitals: Temp Pulse Resp BP Pulse Ox 98.5 F 91 H 16 119/72 98 04/29/18 05:59 04/29/18 12:27 04/29/18 05:59 04/29/18 12:27 04/29/18 12:27 Plan Activity: advance as tolerated, fall precautions Diet: other (Hepatic diet) Additional Instructions: advised to quit alcohol intake. advised to f/u private GI per schedule Follow up with: PRIMARY MD EUGENIO [Primary Care Provider] - 3-5 Days NICHOLAS GRANADO MD [Staff Physician] - 7 Days Prescriptions: oxyCODONE /ACETAMINOPHEN [Percocet 5/325 mg] 1 tab PO BID PRN #10 tablet PRN Reason: Pain, Moderate (4-6)
== END 2018-04-29 18:50 | disposition home or self-care (01) | DRG 432 ==
LOC: ED 08:25 → 3A 12:45
PROVIDERS: ADMIT Internal Medicine; ATTEND Internal Medicine
PROC: 0W9G3ZZ Drainage of Peritoneal Cavity, Percutaneous Approach (ICD-10-PCS; principal; 2018-04-26)
DX: K70.40 Alcoholic hepatic failure without coma (principal); J96.01 Acute respiratory failure with hypoxia; E43 Unspecified severe protein-calorie malnutrition; K70.11 Alcoholic hepatitis with ascites; K70.31 Alcoholic cirrhosis of liver with ascites; F10.10 Alcohol abuse, uncomplicated; E87.6 Hypokalemia; E87.70 Fluid overload, unspecified; M19.90 Unspecified osteoarthritis, unspecified site; Z96.649 Presence of unspecified artificial hip joint; Z79.82 Long term (current) use of aspirin; Z68.26 Body mass index [BMI] 26.0-26.9, adult
CPT/HCPCS: 36415; 49083; 80048; 80053; 82140; 82947; 83605; 84160; 85025; 85610; 85730; 89051; 99284; J2270

== ENCOUNTER 2018-12-31 02:24 | Emergency (ER) | payer MEDICARE ==
--- NOTE | 2018-12-31 03:12 | XRay Report ---
PROCEDURE: XR SPINE LUMBOSACRAL 2-3V TECHNIQUE: AP and oblique views of the lumbar spine were obtained. HISTORY: post fall, injury back pain COMPARISONS: None FINDINGS: The study is limited since a true lateral view of the lumbar spine could not be obtained. No definite acute compression fractures seen on the AP and oblique views. The SI joints appear normal. There is a nonspecific round 8.6 x 7.8 cm radiodense structure superimposed over the sacrum on the PA view. Th is is not seen on the oblique view. Whether it is artifactual is uncertain. There is previous left hi p replacement. IMPRESSION: Limited study as described. No definite acute displaced fracture seen. Indeterminate 8.6 x 7.8 cm radiodense structure ventral to the sacrum on the AP view. It is not seen on the oblique view Whether it is artifactual is uncertain.. This document is electronically signed by Yony Henry MD., Dec 31 2018 03:10:58 AM ET
--- NOTE | 2018-12-31 03:15 | XRay Report ---
PROCEDURE: XR HIP 2-3V LT TECHNIQUE: 3 views of the left hip were obtained. HISTORY: post fall, injury hip pain COMPARISONS: None FINDINGS: There is previous total left hip arthroplasty. There is no evidence of fracture or hardware complicat ion. There are peritoneal sutures along the floor the pelvis. The bony pelvic ring appears intact. Th e soft tissues reveal a dense round structure superimposed over the sacrum on the AP view. In retrosp ect this corresponds to the patient's umbilical hernia which contains fluid. IMPRESSION: Previous total left hip arthroplasty. No evidence of fracture or hardware . Umbilical hernia noted superimposed over the sacrum on the AP view.. This document is electronically signed by Yony Henry MD., Dec 31 2018 03:13:49 AM ET
[2018-12-31] MEDS ORDERED: TORADOL IM ONE (04:25)
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
[2018-12-31 05:52] VITALS: BP 157/87
== END 2018-12-31 05:50 | disposition home or self-care (01) ==
LOC: ED 02:24
DX: S39.012A Strain of muscle, fascia and tendon of lower back, initial encounter (principal); M25.552 Pain in left hip; Z87.442 Personal history of urinary calculi; Z87.19 Personal history of other diseases of the digestive system; M19.90 Unspecified osteoarthritis, unspecified site; V19.9XXA Pedal cyclist (driver) (passenger) injured in unspecified traffic accident, initial encounter; Y93.89 Activity, other specified; Y92.009 Unspecified place in unspecified non-institutional (private) residence as the place of occurrence of the external cause; Y99.8 Other external cause status
CPT/HCPCS: 72100; 73502; 96372; 99283; J1885

== ENCOUNTER 2019-01-22 16:56 | Inpatient (IN) | payer MEDICARE ==
[2019-01-22] MEDS ORDERED: ZOFRAN ODT PO ONE (17:23)
[2019-01-22] MEDS ORDERED: DILAUDID IM ONE (17:23)
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
[2019-01-22 17:56] LABS: Basophils # (Auto) 0.1 K/mm3 (0.0-0.1); Basophils % (Auto) 0.9 % (0.0-1.8); Eosinophils # (Auto) 0.3 K/mm3 (0.0-0.4); Eosinophils % (Auto) 4.6 % (0.0-4.3); Hematocrit 26.7 % (35.5-45.6); Lymphocytes # (Auto) 1.6 K/mm3 (1.2-5.4); Lymphocytes % (Auto) 22.7 % (13.4-35.0); Mean Corpuscular HGB Conc 34 % (32-34); Mean Corpuscular Volume 93 fl (84-94); Monocytes # (Auto) 0.6 K/mm3 (0.0-0.8); Monocytes % (Auto) 8.4 % (0.0-7.3); Platelet Count 605 K/mm3 (140-440); Red Blood Count 2.88 M/mm3 (3.65-5.03); Red Cell Distribution Width 18.5 % (13.2-15.2)
[2019-01-22 18:07] LABS: INR 1.18 (0.87-1.13); Partial Thromboplastin Time 33.2 Sec. (24.2-36.6)
[2019-01-22 18:20] LABS: Alanine Aminotransferase 22 units/L (7-56); Albumin 3.4 g/dL (3.9-5); BUN/Creatinine Ratio 19; Blood Urea Nitrogen 15 mg/dL (9-20); Calcium 8.3 mg/dL (8.4-10.2); Hemolysis Index 3
--- NOTE | 2019-01-22 19:41 | XRay Report ---
PROCEDURE: XR HIP 2-3V LT TECHNIQUE: AP pelvis and 3 views left hip HISTORY: left hip/buttock pain COMPARISONS: 12/31/2018 FINDINGS: Global osteopenia. Left total hip arthroplasty. Surgical coils in the right bony pelvis. SI joints are open. Sacral arches are grossly intact. Acetabular roof fractures bilaterally. Questionable left inferior pubic ramus fracture. The left acetabular fracture extends into the left superior pubic ramus. IMPRESSION: Bilateral acetabular fractures. The left acetabular roof fracture extends into the left superior pubi c ramus. Questionable left inferior pubic ramus fracture. Recommend CT pelvis for complete characterization of the fractures. Right pelvic surgical coils. Arterial calcifications. Unexpected nonemergent finding protocol initiated. 01/22/2019 at 1939 hours Eastern standard time. This document is electronically signed by Apolonia Marcum MD., January 22 2019 07:39:37 PM ET
[2019-01-22] MEDS ORDERED: K-DUR PO ONE (19:46)
--- NOTE | 2019-01-22 22:10 | Cat Scan Report ---
PROCEDURE: CT PELVIS WO CON TECHNIQUE: Axial helical imaging through the pelvis with sagittal and coronal reformatted images obt ained. HISTORY: pelvic fxs on xray COMPARISONS: X-ray pelvis and left hip performed earlier today. FINDINGS: There is a comminuted and displaced fracture of the anterior wall of the right acetabulum that extend s into the superior pubic ramus. There appears to be a fracture through the anterior wall of the left acetabulum that extends into the superior pubic ramus. Evaluation is limited by streak artifact created by left hip prosthesis. There are displaced fractures of the inferior pubic rami bilaterally. There are fractures of the sacral ala bilaterally, left greater than right. There is a left hip prosthesis. The contents of the pelvis is notable for a fracture hematoma in the right lateral pelvis adjacent to the acetabulum. There is a small midline abdominal wall hernia that contains fat and nondistended small bowel. This i s incompletely imaged. There is evidence of previous right inguinal hernia repair. There are mildly prominent bilateral inguinal lymph nodes. IMPRESSION: 1. Comminuted and displaced fracture anterior wall right acetabulum that extends into the superior pu bic ramus. 2. Left hip prosthesis with the appearance of a fracture through the anterior wall the left acetabulu m that extends into the superior pubic ramus. 3. Displaced fractures inferior pubic rami bilaterally. 4. Fractures of the sacral ala bilaterally, left greater than right. 5. Fracture hematoma right lateral pelvis. 6. Small midline abdominal wall hernia that contains fat and nondistended small bowel. This document is electronically signed by Jennifer Castillo MD., January 22 2019 10:08:47 PM ET
[2019-01-22] MEDS ORDERED: ZOFRAN IV PRN (23:21)
[2019-01-22] MEDS ORDERED: TYLENOL PO PRN (23:21)
[2019-01-22] MEDS ORDERED: DILAUDID IV PRN (23:21)
[2019-01-22] MEDS ORDERED: SODIUM CHLORIDE FLUSH SYRINGE 10 ML IV PRN (23:21)
[2019-01-22] MEDS ORDERED: ATIVAN IV PRN ×2 (23:24)
[2019-01-22] MEDS ORDERED: DILAUDID IV ONE (23:25)
[2019-01-22] MEDS ORDERED: NACL 0.9% 1000 ML 1,000 ML IV SCH (23:45)
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
[2019-01-23] MEDS ORDERED: NORCO 10/325 PO PRN (01:03)
[2019-01-23 07:11] LABS: Basophils # (Auto) 0.1 K/mm3 (0.0-0.1); Basophils % (Auto) 0.9 % (0.0-1.8); Eosinophils # (Auto) 0.5 K/mm3 (0.0-0.4); Eosinophils % (Auto) 7.5 % (0.0-4.3); Hemoglobin 10.1 gm/dl (11.8-15.2); Lymphocytes # (Auto) 1.4 K/mm3 (1.2-5.4); Lymphocytes % (Auto) 20.6 % (13.4-35.0); Mean Corpuscular HGB Conc 33 % (32-34); Mean Corpuscular Volume 95 fl (84-94); Monocytes # (Auto) 0.6 K/mm3 (0.0-0.8); Monocytes % (Auto) 8.7 % (0.0-7.3); Platelet Count 618 K/mm3 (140-440); Red Blood Count 3.26 M/mm3 (3.65-5.03); Red Cell Distribution Width 19.5 % (13.2-15.2)
[2019-01-23 07:29] LABS: BUN/Creatinine Ratio 19; Blood Urea Nitrogen 15 mg/dL (9-20); Calcium 8.3 mg/dL (8.4-10.2); Hemolysis Index 21
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
[2019-01-23] MEDS: MORPHINE IV PRN ×3 (08:54→20:58)
[2019-01-23] MEDS: LOVENOX SUB-Q SCH (12:07)
[2019-01-23] MEDS: SODIUM CHLORIDE FLUSH SYRINGE 10 ML IV SCH (12:10)
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
[2019-01-24] MEDS: MORPHINE IV PRN ×3 (01:36→20:05)
[2019-01-24] MEDS: SODIUM CHLORIDE FLUSH SYRINGE 10 ML IV SCH ×3 (01:37→21:28)
[2019-01-24] MEDS: LOVENOX SUB-Q SCH (11:06)
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
[2019-01-25] MEDS: MORPHINE IV PRN ×3 (00:34→11:01)
--- NOTE | 2019-01-25 09:37 | Discharge Summary ---
Providers - Providers Date of Admission: 01/22/19 23:21 Date of discharge: 01/25/19 Attending physician: ABBY BREAUX 01/22/19 22:35 Consult to Physician [CONS] Urgent Comment: Dr. Scott spoke with Dr. Pena @ [phone] Consulting Provider: HEBER PENA Physician Instructions: Reason For Exam: multiple pelvic fractures 01/23/19 01:03 Physical Therapy Evaluation and Treat [CONS] Routine Comment: Reason For Exam: ataxia 01/24/19 11:01 Physical Therapy Evaluation and Treat [CONS] Routine Comment: WBAT Reason For Exam: multiple pelvic fx/gait training Weight bearing status?: Full wt bearing [facility] Reason for admission: left buttock and thigh pain , history of fall and multiple old fractures Condition: Stable Pertinent studies: Comminuted and displaced right anterior acetabulum fracture Left hip Fracture Fractures of the sacral ala bilaterally Acute Pain r/t Lt hip Fracture Fracture hematoma right lateral pelvis Hospital course: 58-year-old male with history of EtOH abuse, liver disease, arthritis who presents to [facility] ED with complaints of of left buttock and thigh pain for [address] Pelvis showed multiple pelvic fractures. Dr. Pena ( orthopedic surgeon) was consulted. Patient has history of fall 1 month ago Patient was evaluated by orthopedic surgeon symptomatically managed Evaluated extensively, felt that patient's fractures are old and stable No surgical intervention, recommend physical therapy and gait training Patient received physical therapy pain management Today he is comfortable in no new complaints vital signs stable physical examination unremarkable Case management Assisted with discharge planning Set up home health with home PT, Patient is hemodynamically and clinically stable at discharge Discharge diagnosis; --History of fall; 1 month ago, fall precautions --Multiple hip and pelvic fractures; traumatic, stable chronic fractures Supportive cares, pain management, orthopedic evaluated, no surgical intervention Comminuted and displaced right anterior acetabulum fracture Left hip Fracture Fractures of the sacral ala bilaterally Acute Pain r/t Lt hip Fracture Fracture hematoma right lateral pelvis --Hypokalemia; corrected --Hypertension; well controlled --History of alcohol abuse; advised to quit alcohol intake Placed on CIWA protocol during hospital stay --Chronic alcohol use; advised to quit alcohol intake Also advised to seek alcohol rehabilitation and detox Upon discharge --Mild malnutrition/hypoalbuminemia; nutrition supplements and supportive care Nutrition consult if needed --DVT prophylaxis; Lovenox --Home health home PT Follow up evaluation and recommendations Cleared by orthopedic for discharge and follow up in the office Patient is stable to discharge Disposition: [id number] HOME UNDER HOME [facility] [place] Time spent for discharge: 32 min Core Measure Documentation - Palliative Care Palliative Care/ Comfort Measures: Not Applicable - Core Measures Any of the following diagnoses?: none Exam - Constitutional Vitals: Temp Pulse Resp BP Pulse Ox 98.3 F 90 20 125/71 100 01/25/19 06:14 01/25/19 06:09 01/25/19 06:09 01/25/19 06:09 01/25/19 06:09 General appearance: Present: no acute distress, well-nourished - EENT Eyes: Present: PERRL, EOM intact - Neck Neck: Present: supple - Respiratory Respiratory effort: normal, labored - Cardiovascular Rhythm: regular Heart Sounds: Present: S1 & S2 Plan Activity: advance as tolerated, fall precautions Diet: regular Special Instructions: physical therapy Additional Instructions: Ambulate as tolerated. Follow Precautions Follow up with: MARCIA TESFAYE MD [Primary Care Provider] - 7 Days HEBER PENA MD [Staff Physician] - 7 Days Prescriptions: oxyCODONE /ACETAMINOPHEN [Percocet 5/325] 1 tab PO BID #10 tablet
[2019-01-25] MEDS: LOVENOX SUB-Q SCH (11:02)
[2019-01-25] MEDS: SODIUM CHLORIDE FLUSH SYRINGE 10 ML IV SCH (11:02)
[2019-01-25 21:05] VITALS: BP 148/86
[2019-01-26] MEDS: SODIUM CHLORIDE FLUSH SYRINGE 10 ML IV SCH (01:36)
== END 2019-01-25 22:40 | disposition home health service (06) | DRG 964 ==
LOC: ED 16:56 → 3A 23:21
PROVIDERS: ADMIT Internal Medicine; ATTEND Internal Medicine
DX: S32.491A Other specified fracture of right acetabulum, initial encounter for closed fracture (principal); S72.002A Fracture of unspecified part of neck of left femur, initial encounter for closed fracture; E44.0 Moderate protein-calorie malnutrition; S32.591A Other specified fracture of right pubis, initial encounter for closed fracture; S32.19XA Other fracture of sacrum, initial encounter for closed fracture; M97.02XA Periprosthetic fracture around internal prosthetic left hip joint, initial encounter; S32.492A Other specified fracture of left acetabulum, initial encounter for closed fracture; E87.6 Hypokalemia; M19.90 Unspecified osteoarthritis, unspecified site; D64.9 Anemia, unspecified; F10.10 Alcohol abuse, uncomplicated; I10 Essential (primary) hypertension; S30.0XXA Contusion of lower back and pelvis, initial encounter; W18.30XA Fall on same level, unspecified, initial encounter; Y93.89 Activity, other specified; Y92.89 Other specified places as the place of occurrence of the external cause; Y99.8 Other external cause status; Z96.643 Presence of artificial hip joint, bilateral; Z68.23 Body mass index [BMI] 23.0-23.9, adult; Z99.3 Dependence on wheelchair
CPT/HCPCS: 36415; 72192; 80048; 80053; 80320; 83735; 85025; 85610; 85730; 96372; 96374; 99285; G0378; G0480; J1170; J1650; J2270; J7030; Q0162

== ENCOUNTER 2021-08-27 12:48 | Emergency (ER) | payer MEDICARE ==
[2021-08-27] MEDS ORDERED: hydrOXYzine HCL 25 MG TAB PO ONE (13:00)
--- NOTE | 2021-08-27 13:11 | Emergency Department Report ---
ED General Adult HPI - General Stated complaint: HAND CRAMPING Time Seen by Provider: 08/27/21 12:59 - History of Present Illness Initial comments: Patient presents by ambulance secondary to carpal spasms of both hands. When he went to bed last night, he stated that he felt well. He slept on his left shoulder. This morning, he woke up and noticed that both hands were cramped and contracted. This caused pain. EMS was called and the patient was transported here. He has no trauma. He has no fevers or chills per there is no cough or congestion. He does report that about a week ago he was vomiting. He also had diarrhea. Symptoms from a GI perspective is stopped and he has been drinking a lot of water. He did try to drink water this morning to resolve the spasm but that did not help. He called an ambulance and the patient was transported here. There is no history of recent illness otherwise. He has never had symptoms like this before. - Related Data Previous Rx's Medication Instructions Recorded Last Taken Type oxyCODONE /ACETAMINOPHEN [Percocet 1 tab PO BID #10 tablet 01/25/19 Unknown Rx 5/325] Magnesium Oxide [Mag-Ox] 400 mg PO QDAY #15 tab 08/27/21 Unknown Rx Allergies Allergy/AdvReac Type Severity Reaction Status Date / Time No Known Allergies Allergy Verified 02/08/18 12:12 ED Review of Systems ROS: Stated complaint: HAND CRAMPING Other details as noted in HPI Comment: All other systems reviewed and negative Constitutional: denies: fever Eyes: denies: eye pain ENT: denies: throat pain Respiratory: denies: cough Cardiovascular: denies: chest pain Endocrine: denies: unexplained weight loss Gastrointestinal: as per HPI Genitourinary: denies: dysuria Musculoskeletal: as per HPI Skin: denies: rash Neurological: denies: headache Hematological/Lymphatic: denies: easy bruising ED Past Medical Hx - Past Medical History Hx Hypertension: No Hx Congestive Heart Failure: No Hx Diabetes: No Hx Liver Disease: Yes Hx Arthritis: Yes Hx Kidney Stones: Yes Hx Asthma: No Hx COPD: No Hx HIV: No Additional medical history: LIVER FAILURE ALCOHOL ABUSE - Surgical History Additional Surgical History: hip replacement. - Family History Family history: no significant - Social History Smoking Status: Never Smoker - Medications Home Medications: Home Medications Medication Instructions Recorded Confirmed Last Taken Type oxyCODONE /ACETAMINOPHEN [Percocet 1 tab PO BID #10 tablet 01/25/19 Unknown Rx 5/325] Magnesium Oxide [Mag-Ox] 400 mg PO QDAY #15 tab 08/27/21 Unknown Rx ED Physical Exam - General Limitations: No Limitations, Other (Pulse ox noted and normal) General appearance: alert, in no apparent distress, other (Unkempt) - Head Head exam: Present: atraumatic, normocephalic - Eye Eye exam: Present: normal appearance, EOMI. Absent: scleral icterus - ENT ENT exam: Present: normal orophraynx, normal external ear exam - Neck Neck exam: Present: normal inspection. Absent: meningismus - Respiratory Respiratory exam: Present: normal lung sounds bilaterally. Absent: respiratory distress - Cardiovascular Cardiovascular Exam: Present: regular rate, normal rhythm - GI/Abdominal GI/Abdominal exam: Present: soft. Absent: distended, tenderness - Extremities Exam Extremities exam: Present: normal capillary refill, other (Carpal spasms of both hands). Absent: calf tenderness - Back Exam Back exam: Absent: CVA tenderness (R), CVA tenderness (L) - Neurological Exam Neurological exam: Present: alert, oriented X3, CN II-XII intact, reflexes normal. Absent: motor sensory deficit - Psychiatric Psychiatric exam: Present: normal affect, normal mood - Skin Skin exam: Present: warm, dry ED Course Vital Signs 08/27/21 13:25 Temperature 98.1 F Pulse Rate 86 Respiratory 16 Rate Blood Pressure 158/86 [Right] O2 Sat by Pulse 100 Oximetry - Reevaluation(s) Reevaluation #1: 08/27/21 12:55 EMS was met upon arrival. IV and labs were ordered. Old records noted. Reevaluation #2: 08/27/21 18:11 Labs were noted and magnesium was replaced. ED Medical Decision Making - Lab Data Result diagrams: 08/27/21 17:18 - Medical Decision Making Patient presented with spasms of the hand. He was found to be hypomagnesemic. This was addressed. Patient was treated. He was not hyperventilating. There was no other metabolic derangement to account for this. It is unlikely that this would represent stroke considering it was bilateral and this did not seem to be stroke in nature. Critical Care Time: No Critical care attestation.: If time is entered above; I have spent that time in minutes in the direct care of this critically ill patient, excluding procedure time. ED Disposition Clinical Impression: Muscle spasm, Hypomagnesemia Disposition: 01 HOME / SELF CARE / HOMELESS Is pt being admited?: No Condition: Stable Instructions: Muscle Cramps and Spasms, [id number], Hypomagnesemia Additional Instructions: Drink plenty water. Return for problems. Take magnesium [id number]. Follow-up with your family doctor or the referral doctor for recheck. Prescriptions: Magnesium Oxide [Mag-Ox] 400 mg PO QDAY #15 tab Referrals: PRIMARY CAREMD [Primary Care Provider] - 3-5 Days MICHELLE MAN MD [Staff Physician] - 3-5 Days
[2021-08-27 18:04] LABS: Blood Urea Nitrogen 6 mg/dL (9-20); Hemolysis Index 28
[2021-08-27] MEDS ORDERED: MAGNESIUM SULFATE 2 GM/50 ML BAG IV ONE (18:08)
[2021-08-27 18:16] LABS: BUN/Creatinine Ratio 12
[2021-08-27] MEDS ORDERED: POTASSIUM CHLORIDE ER 20 MEQ TAB PO ONE (19:04)
[2021-08-27] MEDS: POTASSIUM CHLORIDE 10 MEQ 10 MEQ/100 ML BAG IV SCH ×2 (20:01→21:26)
[2021-08-28 01:55] VITALS: BP 143/70
== END 2021-08-28 00:58 | disposition home or self-care (01) ==
LOC: ED 12:48
DX: E83.42 Hypomagnesemia (principal); M62.838 Other muscle spasm; M19.90 Unspecified osteoarthritis, unspecified site; K76.9 Liver disease, unspecified; N20.0 Calculus of kidney; Z79.899 Other long term (current) drug therapy; Z98.890 Other specified postprocedural states
CPT/HCPCS: 36415; 80048; 83735; 96365; 96366; 96368; 99284; J3475; J3480; 96361